=== PATIENT | female | born 1940 | race Caucasian/White ===

== ENCOUNTER 2016-10-24 14:02 | Outpatient (CLI) | payer MEDICARE, OTHER | END 2016-10-24 14:03 | disposition home or self-care (01) | DX: G47.33 Obstructive sleep apnea (adult) (pediatric) (principal); G47.23 Circadian rhythm sleep disorder, irregular sleep wake type; G47.09 Other insomnia | CPT/HCPCS: 99203; G0463 ==

== ENCOUNTER 2016-12-29 19:24 | Outpatient (CLI) | payer MEDICARE, OTHER ==
[2016-12-29 19:38] LABS: BASOPHILS # (AUTO) 0.1 10^3/uL (0.0-0.1); BASOPHILS % (AUTO) 0.8 %; EOSINOPHILS # (AUTO) 0.1 10^3/uL (0.0-0.7); EOSINOPHILS % (AUTO) 1.3 %; HCT - HEMATOCRIT 42.2 % (37.0-47.0); HGB - HEMOGLOBIN 14.5 g/dL (12.0-16.0); LYMPHOCYTES # (AUTO) 0.9 10^3/uL (1.5-3.5); LYMPHOCYTES % (AUTO) 10.8 %; MEAN CORPUSCULAR HEMOGLOBIN 32.7 pg (27.0-31.0); MEAN CORPUSCULAR HGB CONC 34.4 g/dL (32.0-36.0); MEAN CORPUSCULAR VOLUME 95.1 fL (81.0-99.0); MEAN PLATELET VOLUME 8.4 fL (7.9-10.8); MONOCYTES # (AUTO) 0.7 10^3/uL (0.0-1.0); MONOCYTES % (AUTO) 7.9 %; NEUTROPHILS # (AUTO) 6.6 10^3/uL (1.5-6.6); NEUTROPHILS % (AUTO) 79.2 %; RED BLOOD COUNT 4.44 10^6/uL (4.20-5.40); RED CELL DISTRIBUTION WIDTH 16.3 % (12.0-15.0); UNCORRECTED WHITE BLOOD COUNT 8.3 x10^3/uL; WHITE BLOOD COUNT 8.3 x10^3/uL (4.8-10.8)
[2016-12-29 19:52] LABS: ALBUMIN/GLOBULIN RATIO 1.2 (1.0-2.2); BILIRUBIN,TOTAL 0.8 mg/dL (0.2-1.0); CALCIUM 9.1 mg/dL (8.5-10.3); POTASSIUM 3.9 mmol/L (3.5-5.0); TOTAL PROTEIN 7.5 g/dL (6.7-8.2)
== END 2016-12-29 19:25 | disposition home or self-care (01) ==
LOC: LAB 19:24
PROVIDERS: ATTEND Physician Assistant
DX: R00.0 Tachycardia, unspecified (principal); R06.02 Shortness of breath; R58 Hemorrhage, not elsewhere classified
CPT/HCPCS: 36415; 80053; 85025

== ENCOUNTER 2017-01-03 12:49 | Outpatient (CLI) | payer MEDICARE, OTHER ==
--- NOTE | 2017-01-04 09:57 | XRAY Report ---
THREE VIEW LEFT SHOULDER: 01/03/2017 CLINICAL INDICATION: Pain. FINDINGS: Internal and external rotational views and a scapular Y view of the left shoulder demonstr ate osteoarthritic changes of the acromioclavicular joint. There is no evidence of acute fracture. No radiopaque foreign body is seen in the soft tissues. IMPRESSION: MILD OSTEOARTHRITIS. JOB #: [id number] EXT JOB #:[id number]
== END 2017-01-03 12:50 | disposition home or self-care (01) ==
LOC: DI.N 12:49
PROVIDERS: ATTEND Internal Medicine
DX: M19.012 Primary osteoarthritis, left shoulder (principal)

== ENCOUNTER 2017-03-21 12:44 | Outpatient (CLI) | payer MEDICARE, OTHER | END 2017-03-21 12:45 | disposition short-term general hospital (02) | LOC: EMS 12:44 | PROVIDERS: ATTEND Surgery | DX: R06.09 Other forms of dyspnea (principal) | CPT/HCPCS: A0425; A0429; A0888 ==

== ENCOUNTER 2017-06-20 02:58 | Outpatient (CLI) | payer MEDICARE, OTHER | END 2017-06-20 02:59 | disposition short-term general hospital (02) | LOC: EMS 02:58 | PROVIDERS: ATTEND Surgery | DX: R07.9 Chest pain, unspecified (principal); M54.9 Dorsalgia, unspecified | CPT/HCPCS: A0425; A0429; A0888 ==

== ENCOUNTER 2017-08-06 16:13 | Outpatient (CLI) | payer MEDICARE, OTHER | END 2017-08-06 16:14 | disposition critical access hospital (66) | LOC: EMS 16:13 | PROVIDERS: ATTEND Surgery | DX: R05 Cough (principal) | CPT/HCPCS: A0425; A0429 ==

== ENCOUNTER 2017-08-06 16:32 | Emergency (ER) | payer MEDICARE, OTHER ==
--- NOTE | 2017-08-06 17:06 | ED Physician Documentation ---
History of Present Illness - Stated complaint Stated Complaint: SOA - Chief complaint Chief Complaint: Resp - History obtained from History obtained from: Patient, Family, EMS - History of Present Illness Timing: How many days ago (several) Pain level max: 0 Pain level now: 0 Improved by: rest Worsened by: exertion, mainly is in her wheelchair since early may - Additonal information Additional information: Patient is a 77-year-old female who presents to the emergency department with a cough for the past week. No fevers. States that has been mildly productive. States people at home have been sick with the same. She also lives at [facility], an assisted living facility. Feels short of air and like her chest is tight. She has not been using her nebulizers or inhalers. Concerned that she may have pneumonia. Also has developed an ulcer on the left lower extremity that is turning red per the patient and family. They are concerned it may be infected. Review of Systems Ten Systems: 10 systems reviewed and negative Constitutional: denies: Fever, Chills Ears: denies: Ear pain Nose: reports: Rhinorrhea / runny nose, Congestion Throat: denies: Sore throat Cardiac: denies: Chest pain / pressure Respiratory: reports: Dyspnea, Wheezing (has used inhalers before) GI: denies: Abdominal Pain, Nausea, Vomiting, Diarrhea : denies: Dysuria Skin: denies: Rash Musculoskeletal: denies: Neck pain, Back pain Neurologic: denies: Headache PD PAST MEDICAL HISTORY - Past Medical History Past Medical History: Yes Cardiovascular: Congestive heart failure, Hypertension, Atrial fibrillation, Arrhythmia Respiratory: COPD, Pneumonia, Shortness of breath Neuro: CVA Endocrine/Autoimmune: None GI: GERD, Ulcers, Hemorrhoids : Incontinence, Nocturia, Frequency HEENT: Chronic vision loss Psych: None Musculoskeletal: Osteoarthritis, Fibromyalgia, Osteoporosis Derm: Other - Past Surgical History Past Surgical History: Yes General: Cholecystectomy, Gastric surgery /[employer]: Hysterectomy HEENT: Cataracts Derm: Other - Present Medications Home Medications: Ambulatory Orders Medication Instructions Recorded Confirmed Furosemide 40 tab PO DAILY 02/15/15 06/09/16 Loratadine 10 mg PO DAILY 02/15/15 06/09/16 Losartan Potassium 25 mg PO DAILY 02/15/15 06/09/16 Potassium Chloride 8 meq PO DAILY 02/15/15 06/08/16 Warfarin Sodium 2 mg PO DAILY 02/15/15 06/09/16 raNITIdine HCl [Ranitidine HCl] 150 mg PO DAILY 02/15/15 06/08/16 Acetaminophen 325 mg PO Q6H PRN 06/08/16 06/09/16 Calcium Carbonate [Calcium] 500 mg PO TID 06/08/16 06/08/16 Famotidine [Pepcid] 20 mg PO DAILY 30 Days tablet 06/09/16 Hydrocodone/Acetaminophen 1 tab PO Q4H PRN 06/09/16 06/09/16 [Hydrocodon-Acetaminophn 10-325] Metoprolol Tartrate [Lopressor] 25 mg PO BID 06/09/16 06/09/16 Multivitamin [Multiple Vitamins] 1 each PO DAILY 06/09/16 06/09/16 Nitrofurantoin [Macrobid] 100 mg PO DAILY #5 capsule 06/09/16 Nystatin Cream [Mycostatin Cream] 1 applic TOP DAILY PRN 06/09/16 06/09/16 Polyethylene Glycol 3350 [Miralax] 17 gm PO DAILY PRN 06/09/16 06/09/16 Senna [Senokot] 17.2 mg PO BID 06/09/16 06/09/16 diltiaZEM CD [Cardizem Cd] 240 mg PO DAILY 06/09/16 06/09/16 Albuterol Sulf [Ventolin Hfa 2 puffs INH Q4HR PRN #1 inhaler 08/06/17 Inhaler] Benzonatate [Tessalon Perle] 100 - 200 mg PO TID PRN #30 capsule 08/06/17 Cephalexin [Keflex] 500 mg PO Q6H #40 capsule 08/06/17 Doxycycline Hyclate 100 mg PO BID #20 capsule 08/06/17 predniSONE [Prednisone] 40 mg PO DAILY #10 tablet 08/06/17 - Allergies Allergies/Adverse Reactions: Allergies Allergy/AdvReac Type Severity Reaction Status Date / Time Latex, Natural Rubber Allergy Unknown Verified 02/15/15 15:23 mupirocin Allergy Rash Verified 06/08/16 13:35 silver Allergy Rash Verified 06/08/16 13:35 methotrexate AdvReac Headache Verified 02/15/15 15:23 - Social History Does the pt smoke?: No Smoking Status: Never smoker Does the pt drink ETOH?: No Does the pt have substance abuse?: No - Immunizations Immunizations are current?: Yes - POLST Patient has POLST: No PD ED PE NORMAL - Vitals Vital signs reviewed: Yes - General General: Alert and oriented X 3, No acute distress - HEENT HEENT: Moist mucous membranes - Neck Neck: Supple, no meningeal sign - Cardiac Cardiac: RRR - Respiratory Respiratory: No respiratory distress, Other (wheezing B) - Abdomen Abdomen: Soft, Non tender - Derm Derm: Warm and dry - Extremities Extremities: Other (L leg - 2x2cm, wound to the lateral ankle, mild surrounding cellulitis.) - Neuro Neuro: Alert and oriented X 3 - Psych Psych: Normal mood, Normal affect Results - Vitals Vitals: Vital Signs - 24 hr 08/06/17 08/06/17 08/06/17 16:38 17:43 19:14 Temperature 36.7 C Heart Rate 99 85 90 Respiratory 21 16 18 Rate Blood Pressure 125/71 124/67 O2 Saturation 98 96 08/06/17 08/06/17 08/06/17 19:16 19:32 20:11 Temperature Heart Rate 86 93 Respiratory 19 17 18 Rate Blood Pressure 124/67 O2 Saturation 99 97 08/06/17 08/06/17 08/06/17 20:24 20:31 20:45 Temperature 36.4 C L Heart Rate 92 83 87 Respiratory 20 17 18 Rate Blood Pressure 134/61 H O2 Saturation 99 97 Oxygen O2 Source Nasal cannula - EKG (time done) 1654 Rate: Rate (enter#) (95) Rhythm: Atrial fibrillation [place]: Normal Intervals: Normal [place] QRS: Normal Ischemia: T wave inversion (v2-3) - Labs Labs: Laboratory Tests 08/06/17 08/06/17 08/06/17 17:04 17:04 17:04 WBC 5.0 RBC 3.81 L Hgb 12.4 Hct 37.4 MCV 98.1 MCH 32.6 H MCHC 33.2 RDW 15.5 H Plt Count 184 MPV 8.7 Neut # 3.2 Lymph # 0.8 L Glascock # 0.7 Eos # 0.3 Baso # 0.0 Absolute Nucleated RBC 0.00 Nucleated RBC % 0.0 PT INR Sodium 139 Potassium 3.5 Chloride 98 L Carbon Dioxide 27 Anion Gap 14.0 H BUN 38 H Creatinine 1.0 Estimated GFR (MDRD) 53 L Glucose 104 H Calcium 8.4 L Total Bilirubin 0.6 AST 35 ALT 20 Alkaline Phosphatase 106 B-Natriuretic Peptide 219 H Total Protein 6.9 Albumin 3.4 Globulin 3.5 Albumin/Globulin Ratio 1.0 Lipase 21 L 08/06/17 17:04 WBC RBC Hgb Hct MCV MCH MCHC RDW Plt Count MPV Neut # Lymph # Glascock # Eos # Baso # Absolute Nucleated RBC Nucleated RBC % PT 26.9 H INR 2.5 H Sodium Potassium Chloride Carbon Dioxide Anion Gap BUN Creatinine Estimated GFR (MDRD) Glucose Calcium Total Bilirubin AST ALT Alkaline Phosphatase B-Natriuretic Peptide Total Protein Albumin Globulin Albumin/Globulin Ratio Lipase - Rads (name of study) cxr Radiology: Prelim report reviewed, EMP read contemporaneously, See rad report ( Stable cardiac enlargement. 2. Fullness in both xin similar to the previous study. Findings could represent pulmonary hypertension. Correlate clinically. 3. Possible subtle densities in the right lower lobe could represent developing infiltrates. No large effusions or pneumothorax. ) PD MEDICAL DECISION MAKING - ED course Complexity details: reviewed results, re-evaluated patient, considered differential, d/w patient, d/w family ED course: Patient is a 77-year-old female who presents to the emergency department with what appears to be a viral upper respiratory infection. She feels better after nebulizer treatment and steroids. Will place her on antibiotics for the cellulitis on the left lower extremity. No hypoxia. No respiratory distress. She is on oxygen usually at home. No evidence of sepsis. We will have her follow-up closely with her primary care provider. Patient and family are unaware if she has pulmonary hypertension or not, this may be worthwhile looking into as it may improve her function at home. Would recommend follow-up with her PCP for this. Patient and family counseled regarding signs and symptoms for which I believe and urgent re-evaluation would be necessary. Patient with good understanding of and agreement to plan and is comfortable going home at this time This document was made in part using voice recognition software. While efforts are made to proofread this document, sound alike and grammatical errors may occur. Departure - Departure Disposition: 01 Home, Self Care Clinical Impression: Cellulitis, Wheezing URI (upper respiratory infection) Qualifiers: URI type: unspecified viral URI Qualified Code(s): J06.9 - Acute upper respiratory infection, unspecified Condition: Good Instructions: ED Infec Skin Cellulitis, ED Viral Syndrome Follow-Up: Mazin Lopez MD [Primary Care Provider] - Within 3 Days Prescriptions: Albuterol Sulf [Ventolin Hfa Inhaler] 2 puffs INH Q4HR PRN #1 inhaler PRN Reason: Wheezing Benzonatate [Tessalon Perle] 100 - 200 mg PO TID PRN #30 capsule PRN Reason: Cough Cephalexin [Keflex] 500 mg PO Q6H #40 capsule Doxycycline Hyclate 100 mg PO BID #20 capsule predniSONE [Prednisone] 40 mg PO DAILY #10 tablet Comments: Return if you worsen. You need to follow up closely with Dr. Lopez for a referral to wound care at the [facility] [place]. Discharge Date/Time: 08/06/17 20:45
[2017-08-06 17:10] LABS: BASOPHILS % (AUTO) 0.7 %; EOSINOPHILS # (AUTO) 0.3 10^3/uL (0.0-0.7); EOSINOPHILS % (AUTO) 5.1 %; HGB - HEMOGLOBIN 12.4 g/dL (12.0-16.0); LYMPHOCYTES # (AUTO) 0.8 10^3/uL (1.5-3.5); LYMPHOCYTES % (AUTO) 15.6 %; MEAN CORPUSCULAR HEMOGLOBIN 32.6 pg (27.0-31.0); MEAN CORPUSCULAR HGB CONC 33.2 g/dL (32.0-36.0); MEAN CORPUSCULAR VOLUME 98.1 fL (81.0-99.0); MEAN PLATELET VOLUME 8.7 fL (7.9-10.8); MONOCYTES # (AUTO) 0.7 10^3/uL (0.0-1.0); MONOCYTES % (AUTO) 14.6 %; NEUTROPHILS # (AUTO) 3.2 10^3/uL (1.5-6.6); PLT - PLATELET COUNT 184 10^3/uL (130-450); RED BLOOD COUNT 3.81 10^6/uL (4.20-5.40); RED CELL DISTRIBUTION WIDTH 15.5 % (12.0-15.0)
[2017-08-06] MEDS ORDERED: IPRATROPIUM/ALBUTEROL 3 ML NEB INH STA (17:23)
[2017-08-06] MEDS ORDERED: predniSONE 20 MG TABLET PO STA (17:23)
[2017-08-06 17:26] LABS: ALBUMIN 3.4 g/dL (3.2-5.5); BILIRUBIN,TOTAL 0.6 mg/dL (0.2-1.0); CALCIUM 8.4 mg/dL (8.5-10.3); TOTAL PROTEIN 6.9 g/dL (6.7-8.2)
--- NOTE | 2017-08-06 18:03 | XRAY Preliminary Report ---
Exam: XR CHEST 1 VIEW X-RAY IMPRESSION: 1. Stable cardiac enlargement. 2. Fullness in both xin similar to previous study. Findings could represent pulmonary hypertension. Correlate clinically. 3. Possible subtle densities in the right lower lobe could represent developing infiltrates. No large effusions or pneumothorax. [facility] SITE ID: [id number]
--- NOTE | 2017-08-06 18:36 | XRAY Report ---
EXAM: CHEST RADIOGRAPHY EXAM DATE: 08/06/2017 05:30 PM. CLINICAL HISTORY: Dyspnea, cough. COMPARISON: 06/09/2016. TECHNIQUE: 1 view. FINDINGS: Lungs/Pleura: Both xin are prominent. No large effusions or pneumothorax. Possible patchy interstiti al or groundglass opacities in the right lower lobe. Mediastinum: Stable cardiac enlargement. EKG leads overlie the chest. Other: None. IMPRESSION: 1. Stable cardiac enlargement. 2. Fullness in both xin similar to the previous study. Findings could represent pulmonary hypertensi on. Correlate clinically. 3. Possible subtle densities in the right lower lobe could represent developing infiltrates. No large effusions or pneumothorax. [facility] Referring Provider Line: [phone] SITE ID: [id number]
[2017-08-06] MEDS ORDERED: SODIUM CHLORIDE 0.9% 500 ML IV ONE (19:49)
[2017-08-06] MEDS ORDERED: cephALEXin 250 MG CAPSULE PO STA (19:49)
[2017-08-06] MEDS ORDERED: ALBUTEROL NEB 2.5 MG/3 ML INH STA (19:49)
[2017-08-06] MEDS ORDERED: DOXYCYCLINE 100 MG TABLET PO STA (19:51)
[2017-08-06 20:06] LABS: INR 2.5 (0.8-1.2); PT - PROTHROMBIN TIME 26.9 secs (9.9-12.6)
[2017-08-06 20:32] VITALS: BP 134/61
== END 2017-08-06 20:45 | disposition home or self-care (01) ==
LOC: EDUNIT# → ED 16:32
DX: J06.9 Acute upper respiratory infection, unspecified (principal); B97.89 Other viral agents as the cause of diseases classified elsewhere; L03.116 Cellulitis of left lower limb; L97.329 Non-pressure chronic ulcer of left ankle with unspecified severity; I48.91 Unspecified atrial fibrillation; Z79.01 Long term (current) use of anticoagulants; I11.0 Hypertensive heart disease with heart failure; I50.9 Heart failure, unspecified; J44.9 Chronic obstructive pulmonary disease, unspecified
CPT/HCPCS: 36415; 71045; 80053; 83690; 83880; 85025; 85610; 94640; 99283; 99284; A9270; J7512; J7613; J7620; 93005

== ENCOUNTER 2017-08-09 07:11 | Outpatient (CLI) | payer MEDICARE, OTHER | END 2017-08-09 07:12 | disposition short-term general hospital (02) | LOC: EMS 07:11 | PROVIDERS: ATTEND Surgery | DX: R06.02 Shortness of breath (principal) | CPT/HCPCS: A0425; A0427; A0888 ==

== ENCOUNTER 2019-08-10 14:50 | Outpatient (CLI) | payer MEDICARE, OTHER | END 2019-08-10 14:51 | disposition short-term general hospital (02) | LOC: EMS 14:50 | PROVIDERS: ATTEND Surgery | DX: R07.89 Other chest pain (principal); R06.02 Shortness of breath | CPT/HCPCS: A0425; A0427; A0888 ==

== ENCOUNTER 2020-03-06 08:00 | Outpatient (CLI) | payer MEDICARE, OTHER ==
[2020-03-06 12:37] LABS: BASOPHILS % (AUTO) 0.7 %; EOSINOPHILS # (AUTO) 0.3 10^3/uL (0.0-0.7); EOSINOPHILS % (AUTO) 4.5 %; HGB - HEMOGLOBIN 8.5 g/dL (12.0-16.0); LYMPHOCYTES # (AUTO) 1.2 10^3/uL (1.5-3.5); LYMPHOCYTES % (AUTO) 19.3 %; MEAN CORPUSCULAR HGB CONC 30.9 g/dL (32.0-36.0); MEAN CORPUSCULAR VOLUME 103.4 fL (81.0-99.0); MEAN PLATELET VOLUME 11.9 fL (7.9-10.8); MONOCYTES # (AUTO) 0.5 10^3/uL (0.0-1.0); MONOCYTES % (AUTO) 8.4 %; NEUTROPHILS % (AUTO) 66.8 %; PLT - PLATELET COUNT 271 10^3/uL (130-450); RED BLOOD COUNT 2.66 10^6/uL (4.20-5.40); RED CELL DISTRIBUTION WIDTH 18.9 % (12.0-15.0); WHITE BLOOD COUNT 6.1 x10^3/uL (4.8-10.8)
[2020-03-06 12:43] LABS: CREATININE 1.3 mg/dL (0.4-1.0)
== END 2020-03-06 23:59 | disposition home or self-care (01) ==
LOC: LAB.R 08:00
DX: E11.9 Type 2 diabetes mellitus without complications (principal); D64.9 Anemia, unspecified
CPT/HCPCS: 80048; 85025

== ENCOUNTER 2020-03-22 08:00 | Outpatient (CLI) | payer MEDICARE, OTHER ==
[2020-03-22 21:47] LABS: BASOPHILS % (AUTO) 0.5 %; EOSINOPHILS # (AUTO) 0.2 10^3/uL (0.0-0.7); HGB - HEMOGLOBIN 9.3 g/dL (12.0-16.0); LYMPHOCYTES # (AUTO) 1.2 10^3/uL (1.5-3.5); LYMPHOCYTES % (AUTO) 15.3 %; MEAN CORPUSCULAR HGB CONC 30.8 g/dL (32.0-36.0); MEAN CORPUSCULAR VOLUME 103.8 fL (81.0-99.0); MEAN PLATELET VOLUME 11.5 fL (7.9-10.8); MONOCYTES # (AUTO) 0.6 10^3/uL (0.0-1.0); MONOCYTES % (AUTO) 8.2 %; NEUTROPHILS # (AUTO) 5.6 10^3/uL (1.5-6.6); NEUTROPHILS % (AUTO) 73.6 %; PLT - PLATELET COUNT 184 10^3/uL (130-450); RED BLOOD COUNT 2.91 10^6/uL (4.20-5.40); RED CELL DISTRIBUTION WIDTH 19.4 % (12.0-15.0); WHITE BLOOD COUNT 7.5 x10^3/uL (4.8-10.8)
[2020-03-22 21:56] LABS: CALCIUM 8.3 mg/dL (8.5-10.3); CREATININE 0.7 mg/dL (0.4-1.0)
== END 2020-03-22 23:59 | disposition home or self-care (01) ==
LOC: LAB.R 08:00
DX: D64.9 Anemia, unspecified (principal); J44.9 Chronic obstructive pulmonary disease, unspecified; I50.32 Chronic diastolic (congestive) heart failure; I48.20 Chronic atrial fibrillation, unspecified
CPT/HCPCS: 80048; 85025

== ENCOUNTER 2020-04-09 18:58 | Outpatient (CLI) | payer MEDICARE, OTHER ==
[2020-04-09 21:59] LABS: BILIRUBIN,URINE NEGATIVE (NEGATIVE); GLUCOSE, URINE (UA) NEGATIVE (NEGATIVE); KETONES,URINE (UA) NEGATIVE (NEGATIVE); LEUKOCYTE ESTERASE, URINE LARGE (NEGATIVE); NITRITE,URINE POSITIVE (NEGATIVE); OCCULT BLOOD,URINE TRACE-INTA (NEGATIVE); PH,URINE >=9.0 PH (5.0-7.5); PROTEIN,URINE 100 mg/dL (NEGATIVE); UROBILINOGEN,URINE 0.2 (NORMAL) E.U./dL (NORMAL)
[2020-04-09 22:07] LABS: BACTERIA,URINE Moderate /HPF (None Seen); CLARITY,URINE TURBID (CLEAR); RBC,URINE 0-5 /HPF (0-5); SQUAMOUS EPITHELIAL CELL,UR NONE SEEN (<= Few)
== END 2020-04-09 23:59 | disposition home or self-care (01) ==
LOC: LAB.R 18:58
DX: N39.0 Urinary tract infection, site not specified (principal)
CPT/HCPCS: 81001; 87077; 87086; 87181

== ENCOUNTER 2020-04-18 08:00 | Outpatient (CLI) | payer MEDICARE, OTHER ==
[2020-04-18 20:03] LABS: BASOPHILS # (AUTO) 0.1 10^3/uL (0.0-0.1); BASOPHILS % (AUTO) 0.9 %; EOSINOPHILS # (AUTO) 0.1 10^3/uL (0.0-0.7); EOSINOPHILS % (AUTO) 2.4 %; HGB - HEMOGLOBIN 10.5 g/dL (12.0-16.0); LYMPHOCYTES # (AUTO) 1.2 10^3/uL (1.5-3.5); LYMPHOCYTES % (AUTO) 21.5 %; MEAN CORPUSCULAR HEMOGLOBIN 31.3 pg (27.0-31.0); MEAN CORPUSCULAR HGB CONC 30.5 g/dL (32.0-36.0); MEAN CORPUSCULAR VOLUME 102.7 fL (81.0-99.0); MEAN PLATELET VOLUME 10.8 fL (7.9-10.8); MONOCYTES # (AUTO) 0.6 10^3/uL (0.0-1.0); MONOCYTES % (AUTO) 10.6 %; NEUTROPHILS # (AUTO) 3.5 10^3/uL (1.5-6.6); NEUTROPHILS % (AUTO) 64.2 %; PLT - PLATELET COUNT 209 10^3/uL (130-450); RED BLOOD COUNT 3.35 10^6/uL (4.20-5.40); RED CELL DISTRIBUTION WIDTH 19.2 % (12.0-15.0); WHITE BLOOD COUNT 5.4 x10^3/uL (4.8-10.8)
[2020-04-18 20:07] LABS: CALCIUM 8.1 mg/dL (8.5-10.3); CREATININE 0.7 mg/dL (0.4-1.0)
== END 2020-04-18 23:59 | disposition home or self-care (01) ==
LOC: LAB.R 08:00
PROVIDERS: ATTEND Family Medicine
DX: I50.9 Heart failure, unspecified (principal); D64.9 Anemia, unspecified
CPT/HCPCS: 80048; 85025

== ENCOUNTER 2020-05-03 08:00 | Outpatient (CLI) | payer MEDICARE, OTHER ==
[2020-05-03 13:13] LABS: BASOPHILS # (AUTO) 0.1 10^3/uL (0.0-0.1); BASOPHILS % (AUTO) 0.8 %; EOSINOPHILS # (AUTO) 0.2 10^3/uL (0.0-0.7); EOSINOPHILS % (AUTO) 2.9 %; HGB - HEMOGLOBIN 9.8 g/dL (12.0-16.0); LYMPHOCYTES # (AUTO) 1.3 10^3/uL (1.5-3.5); LYMPHOCYTES % (AUTO) 22.4 %; MEAN CORPUSCULAR HEMOGLOBIN 31.8 pg (27.0-31.0); MEAN CORPUSCULAR HGB CONC 30.9 g/dL (32.0-36.0); MEAN CORPUSCULAR VOLUME 102.9 fL (81.0-99.0); MEAN PLATELET VOLUME 11.2 fL (7.9-10.8); MONOCYTES # (AUTO) 0.6 10^3/uL (0.0-1.0); MONOCYTES % (AUTO) 10.1 %; NEUTROPHILS # (AUTO) 3.8 10^3/uL (1.5-6.6); NEUTROPHILS % (AUTO) 63.5 %; PLT - PLATELET COUNT 255 10^3/uL (130-450); RED BLOOD COUNT 3.08 10^6/uL (4.20-5.40); RED CELL DISTRIBUTION WIDTH 19.6 % (12.0-15.0)
[2020-05-03 13:19] LABS: CALCIUM 8.8 mg/dL (8.5-10.3); CREATININE 0.8 mg/dL (0.4-1.0)
== END 2020-05-03 23:59 | disposition home or self-care (01) ==
LOC: LAB.R 08:00
PROVIDERS: ATTEND Family Medicine
DX: D64.9 Anemia, unspecified (principal); I48.91 Unspecified atrial fibrillation
CPT/HCPCS: 80048; 85025

== ENCOUNTER 2020-05-06 15:21 | Outpatient (CLI) | payer MEDICARE, OTHER ==
--- NOTE | 2020-05-06 19:50 | CT Report ---
PROCEDURE: LOWER EXTREMITY WO - LT INDICATIONS: LEFT FOOT PAIN, BRUISING X4 DAYS TECHNIQUE: Noncontrast 1 mm axial sections acquired of the left foot and ankle, with coronal and sagittal reform ats. COMPARISON: X-ray studies 04/02/2020. FINDINGS: Image quality: Excellent. Bones: There is marked osteopenia limiting evaluation. There is a nondisplaced fracture in the poste rior calcaneus with sclerosis along the margins compatible with a subacute fracture. There is periost eal thickening along the visualized distal fibula compatible with sequelae of an old fracture. Soft tissues: There is concentric subcutaneous edema and skin thickening within the visualized lower leg extending along the dorsal aspect of the foot and ankle. There is severe fatty atrophy of the vi sualized musculature. Visualized flexor, extensor, peroneal, and Achilles tendons appear grossly inta ct. No tibiotalar joint effusion. IMPRESSION: 1. Healing subacute nondisplaced fracture of the calcaneus. 2. Marked osteopenia limiting evaluation. 3. Nonspecific subcutaneous changes edema and skin thickening Individual is lower leg and within the dorsal aspect of the foot. 4. Severe fatty atrophy of the visualized musculature. Reviewed by: Luke Mauricio MD on 05/06/2020 6:49 PM ZEKE Approved by: Luke Mauricio MD on 05/06/2020 6:49 PM ZEKE Station ID: [id number]
== END 2020-05-06 15:22 | disposition home or self-care (01) ==
LOC: DI 15:21
PROVIDERS: ATTEND Nurse Practitioner
DX: S90.32XA Contusion of left foot, initial encounter (principal); S92.002A Unspecified fracture of left calcaneus, initial encounter for closed fracture; M85.872 Other specified disorders of bone density and structure, left ankle and foot

== ENCOUNTER 2020-05-25 10:40 | Outpatient (CLI) | payer MEDICARE, OTHER ==
--- NOTE | 2020-05-25 12:12 | SLEEP CARE CONSULTATION ---
Information from patient questionnaire entered by Mallory Solano. I have reviewed and concur with the information entered by Mallory Solano. This document represents the service I personally performed and the decisions made by me, Shameka Melton MD, [facility]. History of Present Illness Service Date and Time: 05/25/2020 1040 Reason for Visit: [facility] Chief Complaint: reports: Insomnia, Unrefreshed sleep, Excessive daytime sleepiness Date of Onset: 2004 Usual bedtime: Whenever I can Time it takes to fall asleep: 2-4 hours Snores at night: No Observed to quit breathing while asleep: No (years ago has) Number of times waking at night: sleep 2-3 hours at a time Reasons for waking at night: reports: Other (unknown) Toss, Turn, or Twitch while sleeping: No Recalls having dreams: No Usually gets out of bed at: N/A mostly bed bound Feels refreshed in the morning: No Morning headache: No Sleepy or fatigued during the day: Yes Ever fallen asleep while driving: Yes Takes day naps: Yes Dreams during day naps: No Prior sleep studies: Yes Year and Where: 2004 Type of Sleep Study: Polysomnography Additional HPI information: To minimize the risk of COVID-19 exposure, the patient has requested and consented to this telemedicine visit. The patient also agrees to having her insurance billed. Mrs. Hernandez is an 80 year old lady who was first diagnosed with the condition in 2004 in [place] after a stroke. She used a CPAP for about 10 years. She quit shortly after she acquired her third machine. She said her put powder on it, so much that it clogged up the device. She felt less sleepy during the day when she used the machine. She wore a full face mask. She believes she has BiPAP but the pressure is set too high. She was scheduled to have a sleep study 3 years ago but never came in. Her BiPAP was returned to the durable medical supplier. 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 Patient is and lives in [place]. Have you smoked in the past 12 months: No Alcohol use: No Caffeine use: Yes Caffeine amount and frequency: rarely Family History Family history of sleep disordered breathing: No Allergies and Home Medications Drug allergies reviewed: Yes Home medication list reviewed: Yes Review of Systems Cardiovascular: reports: chest pain, have to sleep sitting up Respiratory: reports: shortness of breath Gastrointestinal: reports: difficulty swallowing Urinary: reports: incontinence Neurological: reports: headaches Psychiatric: reports: anxiety Ear/Nose/Throat: reports: nasal congestion, sinus problems, dry mouth/throat Endocrine: reports: sluggishness Musculoskeletal: reports: muscle pain or cramping, mobility problems Immunologic: denies: sneezing, rash, itching, allergies to food or environment, other Physical Exam Height: 5 ft Impression and Plan IMPRESSION: 1. Obstructive Sleep Apnea-Hypopnea Syndrome, as previously diagnosed but presently not treated. The severity is unknown as we do not have the records of her sleep studies. She appears to be symptomatic for loud and irregular snoring, frequent awakenings during the night, unrefreshed sleep, cognitive impairment, and daytime hypersomnolence. Narrow oropharynx and obesity are common predisposing factors for obstructive sleep apnea-hypopnea syndrome. To restart the positive airway pressure therapy, we will need to have another sleep study. Because she is halfway bound, a home sleep apnea test (HSAT) will be ordered. 2. 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 This type of sleep disorder is very common in assisted living situation due to the inactivity during the day. Without instituting regular daytime activities, the patient will fall asleep off and on throughout the day and not sleep at night. I reassured her that she is getting enough sleep and should not worry that she does not sleep at night. The home sleep apnea test (HSAT) may have to be performed during the day. Plan: 1. Schedule a home sleep apnea test (HSAT) to be performed at the halfway. 2. Try to lose weight. 4. Return for follow up after the test. Visit Type: Telehealth Phone Video Type: Doximity Patient Location: Care Facility Location of Provider: Home Patient agrees and consents to this telehealth visit type: Yes Patient agrees to have their insurance billed: Yes Time Spent with Patient (minutes): 10 Provider Statement: I spent 100% of the Telehealth Phone Call with the patient with greater than 50% spent counseling the patient and coordination of care.
== END 2020-05-25 10:41 | disposition home or self-care (01) ==
LOC: SC 10:40
PROVIDERS: ATTEND Internal Medicine Pulmonary Disease
DX: G47.33 Obstructive sleep apnea (adult) (pediatric) (principal); G47.00 Insomnia, unspecified; G47.23 Circadian rhythm sleep disorder, irregular sleep wake type

== ENCOUNTER 2020-06-03 17:10 | Outpatient (CLI) | payer MEDICARE, OTHER, MEDICAID ==
[2020-06-03 19:55] LABS: BASOPHILS % (AUTO) 0.5 %; EOSINOPHILS # (AUTO) 0.1 10^3/uL (0.0-0.7); EOSINOPHILS % (AUTO) 1.4 %; HGB - HEMOGLOBIN 10.2 g/dL (12.0-16.0); LYMPHOCYTES # (AUTO) 1.3 10^3/uL (1.5-3.5); MEAN CORPUSCULAR HEMOGLOBIN 30.8 pg (27.0-31.0); MEAN CORPUSCULAR HGB CONC 30.6 g/dL (32.0-36.0); MEAN CORPUSCULAR VOLUME 100.6 fL (81.0-99.0); MEAN PLATELET VOLUME 11.3 fL (7.9-10.8); MONOCYTES # (AUTO) 0.8 10^3/uL (0.0-1.0); MONOCYTES % (AUTO) 9.7 %; NEUTROPHILS # (AUTO) 5.9 10^3/uL (1.5-6.6); PLT - PLATELET COUNT 306 10^3/uL (130-450); RED BLOOD COUNT 3.31 10^6/uL (4.20-5.40); RED CELL DISTRIBUTION WIDTH 18.6 % (12.0-15.0); WHITE BLOOD COUNT 8.1 x10^3/uL (4.8-10.8)
[2020-06-03 20:01] LABS: ALBUMIN 2.6 g/dL (3.2-5.5); ALBUMIN/GLOBULIN RATIO 0.6 (1.0-2.2); CALCIUM 8.6 mg/dL (8.5-10.3); CREATININE 0.9 mg/dL (0.4-1.0); TOTAL PROTEIN 7.1 g/dL (6.7-8.2)
== END 2020-06-03 23:59 | disposition home or self-care (01) ==
LOC: LAB.R 17:10
DX: I48.91 Unspecified atrial fibrillation (principal)
CPT/HCPCS: 80053; 82728; 85025

== ENCOUNTER 2020-06-29 11:15 | Outpatient (CLI) | payer MEDICARE, OTHER, MEDICAID ==
[2020-06-29 21:14] LABS: CALCIUM 8.6 mg/dL (8.5-10.3); CREATININE 0.8 mg/dL (0.4-1.0)
== END 2020-06-29 23:59 | disposition home or self-care (01) ==
LOC: LAB.R 11:15
DX: R60.9 Edema, unspecified (principal)
CPT/HCPCS: 80048

== ENCOUNTER 2020-07-22 15:45 | Outpatient (CLI) | payer MEDICARE, OTHER, MEDICAID | END 2020-07-22 15:46 | disposition critical access hospital (66) | LOC: EMS 15:45 | PROVIDERS: ATTEND Surgery | DX: Z76.89 Persons encountering health services in other specified circumstances (principal) | CPT/HCPCS: A0425; A0429 ==

== ENCOUNTER 2020-07-22 15:54 | Inpatient (IN) | payer MEDICARE, OTHER, MEDICAID ==
[2020-07-22 16:25] LABS: VBG PH 7.421 (7.31-7.41)
[2020-07-22 16:26] LABS: VBG BASE EXCESS 11.6 mmol/L (-2 - +2); VBG PCO2 59.8 mmHg (41-51); VBG TOTAL CO2 39.8 mmol/L (24-29)
[2020-07-22 16:29] LABS: BASOPHILS % (AUTO) 0.5 %; EOSINOPHILS % (AUTO) 0.4 %; HGB - HEMOGLOBIN 9.6 g/dL (12.0-16.0); LYMPHOCYTES # (AUTO) 0.8 10^3/uL (1.5-3.5); LYMPHOCYTES % (AUTO) 14.7 %; MEAN CORPUSCULAR HEMOGLOBIN 31.6 pg (27.0-31.0); MEAN CORPUSCULAR HGB CONC 31.2 g/dL (32.0-36.0); MEAN CORPUSCULAR VOLUME 101.3 fL (81.0-99.0); MONOCYTES # (AUTO) 0.7 10^3/uL (0.0-1.0); MONOCYTES % (AUTO) 12.4 %; NEUTROPHILS % (AUTO) 71.3 %; PLT - PLATELET COUNT 211 10^3/uL (130-450); RED BLOOD COUNT 3.04 10^6/uL (4.20-5.40); RED CELL DISTRIBUTION WIDTH 20.8 % (12.0-15.0); WHITE BLOOD COUNT 5.7 x10^3/uL (4.8-10.8)
[2020-07-22 16:43] LABS: ALBUMIN 2.1 g/dL (3.2-5.5); ALBUMIN/GLOBULIN RATIO 0.5 (1.0-2.2); CRP - C-REACTIVE PROTEIN 3.7 mg/dL (0-1.0); TOTAL PROTEIN 6.1 g/dL (6.7-8.2)
[2020-07-22] MEDS ORDERED: DEXAMETHASONE 10 MG/ML VIAL IVP STA (16:44)
[2020-07-22 16:51] LABS: INR 1.4 (0.8-1.2); PT - PROTHROMBIN TIME 15.6 secs (9.9-12.6)
--- NOTE | 2020-07-22 16:55 | XRAY Report ---
PROCEDURE: Chest 1 View X-Ray INDICATIONS: Chest Pain TECHNIQUE: One view of the chest was acquired. COMPARISON: 08/06/2017 FINDINGS: Surgical changes and devices: None. Lungs and pleura: No pneumothorax. Multifocal bilateral infiltrates and mild interstitial thickening .. Mediastinum: The central vasculature is indistinct.. Heart size is markedly enlarged, chronic. Bones and chest wall: No suspicious bony lesions. Overlying soft tissues appear unremarkable. IMPRESSION: 1. Bilateral mixed interstitial and alveolar infiltrates suggesting pulmonary edema or possibly infec tious pneumonia. Correlate clinically. 2. Chronic, marked cardiac megaly and central vascular congestion suggesting CHF. Reviewed by: Natalya Cool MD on 07/22/2020 4:53 PM PST Approved by: Natalya Cool MD on 07/22/2020 4:53 PM PST Station ID: [id number]
[2020-07-22 16:58] LABS: PARTIAL THROMBOPLASTIN TIME 31.3 secs (24.9-33.3)
[2020-07-22] MEDS ORDERED: REMDESIVIR 200 MG in SODIUM CHLORIDE 0.9% 250 ML IV ONE (17:00)
[2020-07-22 17:08] LABS: D-DIMER 427.4 ng/mL (200.0-255.0)
--- NOTE | 2020-07-22 17:14 | ED Physician Documentation ---
PD HPI CHEST PAIN - Stated complaint Stated Complaint: C+ MEDS - Chief complaint Chief Complaint: Resp - History obtained from History obtained from: Patient, Family, Other (primary doctor - Dr. Solano) - Additional information Additional information: 80-year-old woman with past medical history of COPD CHF pulmonary hypertension on 2 L home oxygen, DNR/DNI, morbid obesity presents from [facility] (on 2 L home O2) with Covid positivity as of 8 days ago. Patient has been requiring increased O2 to 5 L today and was mildly tachycardic overnight. She has not been complaining of shortness of breath cough diarrhea. She does have body aches and severe weakness. Her wishes are to be admitted for remdesivir but she does not want extraordinary measures per her daughter. Denies chest pain, nausea, abdominal pain or pleurisy. She does have severe diffuse edema, minimal ambulation at baseline, decubitus ulcer and bilateral lower extremity ulcers. mild dyspnea. Review of Systems Ten Systems: 10 systems reviewed and negative Constitutional: reports: Myalgias, Fatigue. denies: Fever, Chills Cardiac: denies: Chest pain / pressure Respiratory: reports: Dyspnea. 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 HEENT: Cataracts Derm: Other - Present Medications Home Medications: Ambulatory Orders Medication Instructions Recorded Confirmed Calcium Carbonate [Calcium] 1,000 mg PO Q2H PRN 06/08/16 07/23/20 Hydrocodone/Acetaminophen 1 tab PO Q6H PRN 06/09/16 07/23/20 [Hydrocodon-Acetaminophn 10-325] Multivitamin [Multiple Vitamins] 1 each PO DAILY 06/09/16 07/23/20 Senna [Senokot] 8.6 mg PO DAILY PRN 06/09/16 07/23/20 polyethylene glycoL 3350 [Miralax] 17 gm PO DAILY 06/09/16 07/23/20 Gabapentin [Neurontin] 200 mg PO TID 07/22/20 07/23/20 Metoprolol Succinate [Toprol Xl] 25 mg PO BID 07/22/20 07/23/20 Potassium Chloride [K-Dur] 20 meq PO BIDWM 07/22/20 07/23/20 Torsemide 80 mg PO DAILY 07/22/20 07/23/20 allopurinoL [Zyloprim] 100 mg PO DAILY 07/22/20 07/23/20 Ascorbic Acid 500 mg PO DAILY 07/23/20 07/23/20 Bisacodyl Supp [Dulcolax Supp] 10 mg LA Q24H PRN 07/23/20 07/23/20 Diclofenac Sodium [Voltaren 2 gm TP Q6H PRN 07/23/20 07/23/20 Arthritis Pain] Ipratropium/Albuterol [Combivent 1 puffs IH Q6H PRN 07/23/20 07/23/20 Respimat] Lactobacillus Rhamnosus GG 1 cap PO DAILY 07/23/20 07/23/20 [Culturelle] Loperamide [Imodium] 2 mg PO Q6H PRN 07/23/20 07/23/20 Loteprednol Etabonate 1 drops EACHEYE BID 07/23/20 07/23/20 Magnesium Hydroxide [Milk of 30 ml PO Q24H PRN 07/23/20 07/23/20 Magnesia] Melatonin 3 mg PO HS 07/23/20 07/23/20 Mineral Oil [Mineral Oil Enema] 1 unit RC Q24H PRN 07/23/20 07/23/20 Nitroglycerin [Nitrostat] 0.4 mg SL Q5M PRN 07/23/20 07/23/20 Ondansetron HCl [Zofran] 4 mg PO Q8H PRN 07/23/20 07/23/20 Prednisolone Acetate/Pf 1 drops EACHEYE BID 07/23/20 07/23/20 [Prednisolone Acet 1% Eye Drop] Propylene Glycol/Peg 400/Pf 1 each EACHEYE Q4H PRN 07/23/20 07/23/20 [Systane 0.3-0.4% Eye Drops] Simethicone [Mylicon] 160 mg PO Q6H PRN 07/23/20 07/23/20 Sodium Chloride [Saline Nasal 1 sprays BIBI Q4HR PRN 07/23/20 07/23/20 [place]] Trolamine Salicylate [Analgesic] 1 applic TP Q6H PRN 07/23/20 07/23/20 Vitamin B Complex 1 each PO DAILY 07/23/20 07/23/20 hydrOXYzine HCL [Hydroxyzine HCl] 50 mg PO Q6H PRN 07/23/20 07/23/20 - Allergies Allergies/Adverse Reactions: Allergies Allergy/AdvReac Type Severity Reaction Status Date / Time Latex, Natural Rubber Allergy Unknown Verified 07/22/20 17:05 mupirocin Allergy Rash Verified 07/22/20 17:05 silver Allergy Rash Verified 07/22/20 17:05 methotrexate AdvReac Headache Verified 07/22/20 17:05 - Social History Does the pt smoke?: No Smoking Status: Never smoker Does the pt drink ETOH?: No Does the pt have substance abuse?: No - Immunizations Immunizations are current?: Yes - POLST Patient has POLST: No PD ED PE NORMAL - Vitals Vital signs reviewed: Yes - General General: Other (Alert, Uncomfortable appearing) - HEENT HEENT: Atraumatic, PERRL, EOMI, Moist mucous membranes, Pharynx benign - Neck Neck: Supple, no meningeal sign - Cardiac Cardiac: Other (Borderline tachycardic rate, regular rhythm) - Respiratory Respiratory: Other (Bilateral coarse breath sounds and crackles) - Abdomen Abdomen: Non tender, Non distended, Other (Morbid obesity) - Female Female : Deferred - Rectal Rectal: Deferred - Back Back: No spinal TTP - Derm Derm: No rash - Extremities Extremities: Other (Severe bilateral lower extremity edema. Bilateral leg wounds) - Neuro Neuro: Other (Alert) - Psych Psych: Normal mood, Normal affect Results - Vitals Vitals: Oxygen O2 Source Nasal cannula Oxygen Flow Rate 5 - Labs Labs: Laboratory Tests 07/22/20 07/22/20 07/22/20 16:18 16:18 16:18 WBC 5.7 RBC 3.04 L Hgb 9.6 L Hct 30.8 L MCV 101.3 H MCH 31.6 H MCHC 31.2 L RDW 20.8 H Plt Count 211 MPV 11.0 H Neut # (Auto) 4.0 Lymph # (Auto) 0.8 L [place] # (Auto) 0.7 Eos # (Auto) 0.0 Baso # (Auto) 0.0 Absolute Nucleated RBC 0.00 Nucleated RBC % 0.0 WBC Morphology NORMAL APPEARANCE Platelet Estimate NORMAL (130-450,000) Platelet Morphology NORMAL APPEARANCE RBC Morph Micro Appear 1+ POLYCHROMASIA ESR PT 15.6 H INR 1.4 H APTT 31.3 D-Dimer 427.4 H VBG pH VBG pCO2 VBG pO2 VBG HCO3 VBG Total CO2 VBG O2 Saturation VBG Base Excess Sodium 136 Potassium 3.9 Chloride 90 L Carbon Dioxide 37 H Anion Gap 9.0 BUN 42 H Creatinine 1.0 Estimated GFR (MDRD) 53 L Glucose 108 H Lactic Acid Calcium 8.0 L Total Bilirubin 1.0 AST 60 H ALT 18 Alkaline Phosphatase 290 H Troponin I High Sens C-Reactive Protein 3.7 H B-Natriuretic Peptide Total Protein 6.1 L Albumin 2.1 L Globulin 4.0 Albumin/Globulin Ratio 0.5 L Lipase 26 07/22/20 07/22/20 07/22/20 16:18 16:18 16:18 WBC RBC Hgb Hct MCV MCH MCHC RDW Plt Count MPV Neut # (Auto) Lymph # (Auto) [place] # (Auto) Eos # (Auto) Baso # (Auto) Absolute Nucleated RBC Nucleated RBC % WBC Morphology Platelet Estimate Platelet Morphology RBC Morph Micro Appear ESR 45 H PT INR APTT D-Dimer VBG pH VBG pCO2 VBG pO2 VBG HCO3 VBG Total CO2 VBG O2 Saturation VBG Base Excess Sodium Potassium Chloride Carbon Dioxide Anion Gap BUN Creatinine Estimated GFR (MDRD) Glucose Lactic Acid Calcium Total Bilirubin AST ALT Alkaline Phosphatase Troponin I High Sens 69.9 H* C-Reactive Protein B-Natriuretic Peptide 850 H Total Protein Albumin Globulin Albumin/Globulin Ratio Lipase 07/22/20 07/22/20 16:18 16:18 WBC RBC Hgb Hct MCV MCH MCHC RDW Plt Count MPV Neut # (Auto) Lymph # (Auto) [place] # (Auto) Eos # (Auto) Baso # (Auto) Absolute Nucleated RBC Nucleated RBC % WBC Morphology Platelet Estimate Platelet Morphology RBC Morph Micro Appear ESR PT INR APTT D-Dimer VBG pH 7.421 H VBG pCO2 59.8 H VBG pO2 59.0 H VBG HCO3 38.0 H VBG Total CO2 39.8 H VBG O2 Saturation 90.0 H VBG Base Excess 11.6 H Sodium Potassium Chloride Carbon Dioxide Anion Gap BUN Creatinine Estimated GFR (MDRD) Glucose Lactic Acid 1.5 Calcium Total Bilirubin AST ALT Alkaline Phosphatase Troponin I High Sens C-Reactive Protein B-Natriuretic Peptide Total Protein Albumin Globulin Albumin/Globulin Ratio Lipase PD MEDICAL DECISION MAKING - ED course ED course: 5:15pm - d/w daughter karen re: goals of care. she expressed that she Believe the patient's wishes for no heroic measures however she would like to stay alive to the best of her ability. At this time the daughter does approve central line placement if necessary for pressors since patient will not tolerate iv fluids given her volume overloaded status. The patient is DNR/DNI and should not undergo any aggressive interventions, e.g., for heart attack or stroke. we will admit for remdesivir and symptomatic treatment. Departure - Departure Disposition: 66 [facility] DC/Xfer Clinical Impression: COVID-19, Weakness, Generalized body aches, GLEN (acute kidney injury), Elevated troponin, COPD (chronic obstructive pulmonary disease), CHF exacerbation Condition: Serious Discharge Date/Time: 07/22/20 20:15
[2020-07-22] MEDS ORDERED: ONDANSETRON ODT 4 MG TABLET TL PRN (17:37)
[2020-07-22] MEDS ORDERED: ONDANSETRON 4 MG/2 ML VIAL IVP PRN (17:37)
[2020-07-22] MEDS ORDERED: IOVERSOL 320 100 ML VIAL IVP ONE ×2 (18:10→19:22)
[2020-07-22 18:15] LABS: PLATELET ESTIMATE, MANUAL NORMAL (130-450,000) (NORMAL); PLATELET MORPHOLOGY NORMAL APPEARANCE (NORMAL)
--- NOTE | 2020-07-22 19:29 | HISTORY & PHYSICAL EXAMINATION ---
Chief Complaint - Chief Complaint Chief Complaint: hypoxia History of Present Illness - Admitted From Admitted From:: [facility] ED - History Obtained From Records Reviewed: Yes History obtained from: ED physician and patient - History of Present Illness HPI Comment/Other: Patient is an 80-year-old morbidly obese female With medical history significant for COPD, CHF, pulmonary hypertension, atrial fibrillation, venous stasis ulcers who presented from [facility] with reported hypoxia. She is normally on 2 L of oxygen via nasal cannula at baseline however it was noted that she was requiring 5 L with an oxygen saturation in the 80s. She was diagnosed with Covid 8 days ago. For concern that her clinical status was worsening she was transferred to the ED for further treatment. In the ED work-up showed BNP of 850, troponin of 69.9, INR 1.4. She had systolic blood pressures in the 70s to 90s CT of the chest showed groundglass opacities, trace pleural effusion and gravitational changes. In the setting of cardiomegaly, findings were suggestive of CHF and pulmonary edema however viral pneumonia could not be excluded 1 groundglass opacity in the upper lobes were considered. At bedside the patient denies chest pain, dyspnea, abdominal pain, nausea, vomiting, fever or chills. She complains of general pain because she was just recently transferred from one bed to the other. Normally she is transferred from bed to her wheelchair using a Roxy lift. She has 3+ lower extremity edema and chronic venous stasis ulcers on her shins bilaterally. Her heart rate is irregularly irregular, her lungs are clear to auscultation bilaterally. She does not have labored breathing. She had a right femoral venous central line placed, received 1 dose of remdesivir 200 mg and dexamethasone 6mg IV in the ED and was transferred to the ICU for further treatment. 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 Mother is from diabetes in her 80s. She has 2 brothers, 1 from an MVA, the other one has diabetes. 2 sisters one is blind and the other one is diabetic with one leg amputation. Living arrangement: [facility] ([facility]) Social History Notes: Patient resides at [facility]. She does not consume alcohol or use recreational substances. She was for 62 years but is currently . - POLST Patient has POLST: No POLST Status: DNR Meds/Allgy - Home Medications Home Medications: Ambulatory Orders Medication Instructions Recorded Confirmed Furosemide 40 tab PO DAILY 02/15/15 06/09/16 Loratadine 10 mg PO DAILY 02/15/15 06/09/16 Losartan Potassium 25 mg PO DAILY 02/15/15 06/09/16 Potassium Chloride 10 meq PO DAILY 02/15/15 07/22/20 Warfarin Sodium 2 mg PO DAILY 02/15/15 06/09/16 raNITIdine HCL [Ranitidine HCl] 150 mg PO DAILY 02/15/15 06/08/16 Acetaminophen 325 mg PO Q6H PRN 06/08/16 06/09/16 Calcium Carbonate [Calcium] 500 mg PO PRN PRN 06/08/16 07/22/20 Famotidine [Pepcid] 20 mg PO DAILY 30 Days tablet 06/09/16 Hydrocodone/Acetaminophen 1 tab PO Q4H PRN 06/09/16 06/09/16 [Hydrocodon-Acetaminophn 10-325] Metoprolol Tartrate [Lopressor] 25 mg PO BID 06/09/16 06/09/16 Multivitamin [Multiple Vitamins] 1 each PO DAILY 06/09/16 07/22/20 Nitrofurantoin [Macrobid] 100 mg PO DAILY #5 capsule 06/09/16 Nystatin Cream [Mycostatin Cream] 1 applic TOP DAILY PRN 06/09/16 06/09/16 Senna [Senokot] 17.2 mg PO BID 06/09/16 07/22/20 diltiaZEM CD [Cardizem Cd] 240 mg PO DAILY 06/09/16 06/09/16 polyethylene glycoL 3350 [Miralax] 17 gm PO DAILY PRN 06/09/16 06/09/16 Albuterol Sulf [Ventolin Hfa 2 puffs INH Q4HR PRN #1 inhaler 08/06/17 Inhaler] Benzonatate [Tessalon Perle] 100 - 200 mg PO TID PRN #30 capsule 08/06/17 Cephalexin [Keflex] 500 mg PO Q6H #40 capsule 08/06/17 Doxycycline Hyclate 100 mg PO BID #20 capsule 08/06/17 predniSONE [Prednisone] 40 mg PO DAILY #10 tablet 08/06/17 Gabapentin [Neurontin] 100 mg PO TID 07/22/20 07/22/20 Hydrocodone/Acetaminophen 1 tab PO Q6HR PRN 07/22/20 07/22/20 [Hydrocodone-Acetamin 10-300 mg] Metoprolol Succinate [Toprol Xl] 25 mg PO BID 07/22/20 07/22/20 Potassium Chloride [K-Dur] 20 meq PO BID 07/22/20 07/22/20 Torsemide 80 mg PO DAILY 07/22/20 07/22/20 allopurinoL [Zyloprim] 100 mg PO BID 07/22/20 07/22/20 - Allergies Allergies/Adverse Reactions: Allergies Allergy/AdvReac Type Severity Reaction Status Date / Time Latex, Natural Rubber Allergy Unknown Verified 07/22/20 17:05 mupirocin Allergy Rash Verified 07/22/20 17:05 silver Allergy Rash Verified 07/22/20 17:05 methotrexate AdvReac Headache Verified 07/22/20 17:05 Review of Systems - Constitutional Constitutional: denies: Fatigue, Fever, Chills, Weakness, Diaphoresis - Eyes Eyes: denies: Pain, Vision loss, Dipolpia - Ears, Nose & Throat Ears, Nose & Throat: denies: Ear pain, Sore throat, Hoarseness - Cardiovascular Cariovascular: reports: Irregular heart rate, Edema. denies: Palpitations, Chest pain, Lightheadedness, Syncope - Respiratory Respiratory: denies: Cough, Sputum production, Wheezing, SOB at rest - Gastrointestinal Gastrointestinal: reports: Other (Obese abdomen). denies: Abdominal pain, Abdominal distention, Constipation, Nausea, Vomiting, Coffee grounds emesis, Reflux/heartburn - Genitourinary Genitourinary: denies: Dysuria, Frequency, Urgency, Hematuria, Incontinence - Musculoskeletal Musculoskeletal: denies: Muscle pain, Back pain, Muscle aches - Integumentary Integumentary: reports: Other (Lateral lower extremity venous stasis ulcers). denies: Rash, Pruritis, Lesions - Neurological Neurological: denies: Focal weakness, Headache, Dizziness - Psychiatric Psychiatric: denies: Depression, Anxiety - Endocrine Endocrine: denies: Polyuria, Polydypsia - Hematologic/Lymphatic Hematologic/Lymphatic: denies: Anemia, Bruising Prior Level of Functionality: Patient resides at [facility] She is morbidly obese, mainly bed bound. Is dependent for activities of daily living. She is normally transferred from bed to her wheelchair using a Roxy lift. Exam - Vital Signs Vital Signs: Vital Signs x48h Temp Pulse Resp BP Pulse Ox 07/22/20 18:56 101 H 18 95/49 L 96 07/22/20 17:53 80 10 L 79/51 L 07/22/20 17:07 75 18 95/53 L 07/22/20 16:30 93 21 90/41 L 94 07/22/20 16:07 86 17 74/49 L 94 07/22/20 16:00 90 13 77/39 L 99 07/22/20 15:58 36.7 C 97 18 84/45 L 100 - Physical Exam General Appearance: positive: Alert, Mild distress, Moderate distress, Other (Morbid obesity with a BMI of 54) Eyes Bilateral: positive: PERRL, EOMI ENT: positive: No signs of dehydration Neck: positive: No JVD, Trachea midline Respiratory: positive: Chest non-tender, No respiratory distress, Breath sounds nml. negative: Wheezes, Rales, Rhonchi Cardiovascular: positive: No murmur, Irregularly irregular Abdomen: positive: Non-tender, No organomegaly, Nml bowel sounds, No distention, Other (Morbidly obese abdomen). negative: Guarding, Rebound Back: positive: Nml inspection Skin: positive: Other (Bilateral venousstasis ulcers/ Open blisters) Extremities: positive: Pedal edema Neurologic/Psychiatric: positive: Oriented x3. negative: Mood/affect nml (Patient is somewhat upset) Conclusion/Plan - Problem List (1) COVID-19 Conclusion/Plan: Patient currently does not have any significant respiratory distress. She is at her baseline of 2 L of oxygen via nasal cannula with an oxygen saturation in the high 90s. Patient was given a dose of remdesivir 200 mg IV once in the ED. We will continue remdesivir 100 mg IV daily for 4 more days. Patient was given dexamethasone 6 mg IV once in the ED. We will continue for 4 more days. We will continue to monitor for any potential changes in her respiratory status and treat accordingly. We will hold off on administering antibiotics at the moment. (2) CHF (congestive heart failure) Conclusion/Plan: Suspect mild CHF exacerbation. Patient's BNP was 850. She has 3+ lower extremity edema. When available we will obtain a 2D echocardiogram. Will resume patient's metoprolol and torsemide when appropriate to do so. Will administer Lasix 40 mg IV once. Qualifiers: Heart failure chronicity: acute on chronic (3) Elevated troponin Conclusion/Plan: Possibly demand ischemia. Likely related to CHF exacerbation. Suspicion for acute coronary syndrome low Patient does not have chest pain. Initial troponin was 69.9. Repeat troponin was 70.5 (4) Atrial fibrillation Conclusion/Plan: Will resume patient's metoprolol succinate 25 mg p.o. twice daily and diltiazem 240 mg CD daily when appropriate to do so. For now we will hold due to patient's low blood pressure It appears the patient is on warfarin 2 mg p.o. daily. Will resume once verified by pharmacy. Patient's INR is currently 1.4. (5) Physical deconditioning Conclusion/Plan: Chronic. Patient is morbidly obese with a BMI of 54. She is mainly bedbound and is transferred from bed to wheelchair using a Roxy lift. Patient had undergone lap band in the past which apparently was unsuccessful in helping with weight control. (7) Venous stasis ulcers of both lower extremities Conclusion/Plan: Will apply ointment and dressing to area and wrap. We will attempt to diurese patient. We will refer patient back to outpatient management upon discharge (8) Fibromyalgia Conclusion/Plan: Likely confounded by patient's body habitus and multiple medical conditions Patient is on gabapentin and [place]. - Lab Results Fish Bones: 07/22/20 16:18 07/22/20 16:18 Core Measures - Anticipated LOS I expect patient to be DC'd or transferred within 96 hours.: Yes - DVT/VTE - Prophylaxis VTE/DVT Device ordered at admit?: Yes VTE/DVT Prophylaxis med ordered at admit?: Yes
--- NOTE | 2020-07-22 20:15 | CT Report ---
PROCEDURE: ANGIO CHEST W/WO INDICATIONS: Hypoxia. Covid. Elevated d-dimer. CONTRAST: IV CONTRAST: Optiray 320 ml: 80 PO CONTRAST: *NO PO CONTRAST TECHNIQUE: After the administration of intravenous contrast, 2 mm thick sections acquired from the pulmonary api elise to the posterior costophrenic angles. 3-dimensional maximum intensity projection (MIP) coronal a nd sagittal reformats were then acquired through the thorax. For radiation dose reduction, the follow ing was used: automated exposure control, adjustment of mA and/or kV according to patient size. COMPARISON: Chest x-ray performed earlier the same day FINDINGS: Image quality: Limited due to body habitus and suboptimal bolus timing, the study is nondiagnostic fo r peripheral pulmonary emboli.. Pulmonary arteries: Pulmonary arteries are mildly prominent on the right and normal size on the left . There is streak artifact obscuring good visualization of lobar and segmental pulmonary arteries. Lungs and pleura: Groundglass opacities in the right upper lobe and bilateral dependent thickening al dominic the left and right major fissures. Strandy parenchymal opacity at both lung bases. Small bilatera l pleural effusions. Small groundglass opacity in the right upper lobe laterally.. No pleural effusi ons or pneumothorax. Central and peripheral airways are patent. Mediastinum: Heart is diffusely enlarged and there is preferential opacification of the intrahepatic inferior vena cava. Mild aortic arch calcification. No pericardial effusion. Mild AP window adenopath y and right hilar adenopathy. The esophagus is normal without hiatal hernia. Bones and chest wall: No obvious vertebral body compression fractures or significant displaced rib fr acture. Abdomen: The visible upper abdomen demonstrates hepatomegaly, splenomegaly, cholecystectomy changes, presence of laparoscopic gastric band, and vascular calcification.. IMPRESSION: 1. Limited exam. Nondiagnostic for pulmonary embolus. 2. Groundglass opacities, trace pleural effusions, and gravitational changes. In the setting of cardi omegaly, findings are suggestive of CHF and pulmonary edema, but groundglass opacity in the upper lob es can be seen with viral pneumonia. 3. Mild reactive right hilar and AP window adenopathy. Reviewed by: Natalya Cool MD on 07/22/2020 8:14 PM PST Approved by: Natalya Cool MD on 07/22/2020 8:14 PM PST Station ID: [id number]
[2020-07-22] MEDS ORDERED: FUROSEMIDE 40 MG/4 ML VIAL IVP STA (22:08)
[2020-07-22] MEDS: SODIUM CHLORIDE FLUSH 0.9% 10 ML SYRINGE IVP SCH (23:29)
[2020-07-22] MEDS: ENOXAPARIN 40 MG/0.4 ML SYRINGE SUBQ SCH ×2 (23:30→23:46)
[2020-07-22] MEDS: HYDROcod/ACETAM 5/325 MG TABLET PO PRN (23:38)
[2020-07-23] MEDS: SODIUM CHLORIDE FLUSH 0.9% 10 ML SYRINGE IVP PRN (04:15)
[2020-07-23 04:45] LABS: HGB - HEMOGLOBIN 9.3 g/dL (12.0-16.0); LYMPHOCYTES # (AUTO) 0.6 10^3/uL (1.5-3.5); LYMPHOCYTES % (AUTO) 17.3 %; MEAN CORPUSCULAR HEMOGLOBIN 31.1 pg (27.0-31.0); MEAN CORPUSCULAR HGB CONC 30.1 g/dL (32.0-36.0); MEAN CORPUSCULAR VOLUME 103.3 fL (81.0-99.0); MEAN PLATELET VOLUME 11.1 fL (7.9-10.8); MONOCYTES # (AUTO) 0.1 10^3/uL (0.0-1.0); MONOCYTES % (AUTO) 3.8 %; NEUTROPHILS # (AUTO) 2.9 10^3/uL (1.5-6.6); NEUTROPHILS % (AUTO) 78.6 %; PLT - PLATELET COUNT 205 10^3/uL (130-450); RED BLOOD COUNT 2.99 10^6/uL (4.20-5.40); RED CELL DISTRIBUTION WIDTH 20.9 % (12.0-15.0); WHITE BLOOD COUNT 3.7 x10^3/uL (4.8-10.8)
[2020-07-23 05:05] LABS: MAGNESIUM 2.1 mg/dL (1.7-2.8); PHOSPHORUS 4.3 mg/dL (2.5-4.6)
--- NOTE | 2020-07-23 07:47 | PROVIDER PROGRESS NOTE ---
Subjective - Prog Note Date Prog Note Date: 07/23/20 - Subjective Subjective: She reports feeling a little short of breath but overall has no complaints. She denies a cough or chest pain. She was able to speak with her children on the phone this morning. Current Medications - Current Medications Current Medications: Active Medications Acetaminophen (Acetaminophen 325 Mg Tablet) 650 mg PO Q4HR PRN PRN Reason: Pain 1 to 4 Hydrocodone Bitart/Acetaminophen (Hydrocod/Acetam 5/325 Mg Tablet) 1 tab PO Q4HR PRN PRN Reason: PAIN Last Admin: 07/23/20 10:04 Dose: 1 tab Documented by: Allopurinol (Allopurinol 100 Mg Tablet) 100 mg PO DAILY [facility] Enoxaparin Sodium (Enoxaparin 40 Mg/0.4 Ml Syringe) 40 mg SUBQ HS [facility] Last Admin: 07/22/20 23:46 Dose: 40 mg Documented by: Gabapentin (Gabapentin 100 Mg Capsule) 200 mg PO TID [facility] Metoprolol Succinate (Metoprolol Succinate 25 Mg Tablet) 25 mg PO BID [facility] Mineral Oil (Min Oil/Dimethicon/Coconut Oil 92 Gm Tube) 1 applic TOP PRN PRN PRN Reason: Skin Care Last Admin: 07/23/20 09:19 Dose: 1 applic Documented by: Multivitamins (Multivitamin Tablet) 1 tab PO DAILYWM [facility] Nystatin (Nystatin Powder 15 Gm) 1 applic TOP BID [facility] Last Admin: 07/23/20 09:15 Dose: 1 applic Documented by: Ondansetron HCl (Ondansetron Odt 4 Mg Tablet) 4 mg TL Q6HR PRN PRN Reason: Nausea / Vomiting Ondansetron HCl (Ondansetron 4 Mg/2 Ml Vial) 4 mg IVP Q6HR PRN PRN Reason: Nausea / Vomiting Polyethylene Glycol (Polyethylene Glycol 3350 17 Gm Packet) 17 gm PO DAILY [facility] Last Admin: 07/23/20 09:15 Dose: 17 gm Documented by: Senna (Senna 8.6 Mg Tablet) 8.6 mg PO DAILY PRN PRN Reason: Constipation Sodium Chloride (Sodium Chloride Flush 0.9% 10 Ml Syringe) 10 ml IVP 0100,0900,1700 [facility] Last Admin: 07/23/20 09:16 Dose: 10 ml Documented by: Sodium Chloride (Sodium Chloride Flush 0.9% 10 Ml Syringe) 10 ml IVP PRN PRN PRN Reason: NEEDED PER PROVIDER ORDERS Last Admin: 07/23/20 04:15 Dose: 60 ml Documented by: Calcium Carbonate [Calcium] 1,000 mg PO Q2H PRN 06/08/16 Hydrocodone/Acetaminophen [Hydrocodon-Acetaminophn 10-325] 1 tab PO Q6H PRN 06/09/16 Multivitamin [Multiple Vitamins] 1 each PO DAILY 06/09/16 Senna [Senokot] 8.6 mg PO DAILY PRN 06/09/16 polyethylene glycoL 3350 [Miralax] 17 gm PO DAILY 06/09/16 Gabapentin [Neurontin] 200 mg PO TID 07/22/20 Metoprolol Succinate [Toprol Xl] 25 mg PO BID 07/22/20 Potassium Chloride [K-Dur] 20 meq PO BIDWM 07/22/20 Torsemide 80 mg PO DAILY 07/22/20 allopurinoL [Zyloprim] 100 mg PO DAILY 07/22/20 Ascorbic Acid 500 mg PO DAILY 07/23/20 Bisacodyl Supp [Dulcolax Supp] 10 mg [place] Q24H PRN 07/23/20 Diclofenac Sodium [Voltaren Arthritis Pain] 2 gm TP Q6H PRN 07/23/20 Ipratropium/Albuterol [Combivent Respimat] 1 puffs IH Q6H PRN 07/23/20 Lactobacillus Rhamnosus GG [Culturelle] 1 cap PO DAILY 07/23/20 Loperamide [Imodium] 2 mg PO Q6H PRN 07/23/20 Loteprednol Etabonate 1 drops EACHEYE BID 07/23/20 Magnesium Hydroxide [Milk of Magnesia] 30 ml PO Q24H PRN 07/23/20 Melatonin 3 mg PO HS 07/23/20 Mineral Oil [Mineral Oil Enema] 1 unit RC Q24H PRN 07/23/20 Nitroglycerin [Nitrostat] 0.4 mg SL Q5M PRN 07/23/20 Ondansetron HCl [Zofran] 4 mg PO Q8H PRN 07/23/20 Prednisolone Acetate/Pf [Prednisolone Acet 1% Eye Drop] 1 drops EACHEYE BID 07/23/20 Propylene Glycol/Peg 400/Pf [Systane 0.3-0.4% Eye Drops] 1 each EACHEYE Q4H PRN 07/23/20 Simethicone [Mylicon] 160 mg PO Q6H PRN 07/23/20 Sodium Chloride [Saline Nasal [place]] 1 sprays BIBI Q4HR PRN 07/23/20 Trolamine Salicylate [Analgesic] 1 applic TP Q6H PRN 07/23/20 Vitamin B Complex 1 each PO DAILY 07/23/20 hydrOXYzine HCL [Hydroxyzine HCl] 50 mg PO Q6H PRN 07/23/20 Objective - Vital Signs/Intake & Output Reviewed Vital Signs: Yes Vital Signs: Vital Signs Temp Pulse Pulse Resp BP BP Pulse Ox 07/23/20 07:00 93 15 85/63 L 94 07/23/20 06:00 75 15 98/59 L 15 L 07/23/20 05:55 85 12 07/23/20 05:50 76 13 07/23/20 05:45 81 16 07/23/20 05:40 82 15 07/23/20 05:35 85 16 07/23/20 05:30 83 15 07/23/20 05:25 77 15 07/23/20 05:20 79 13 07/23/20 05:15 75 14 07/23/20 05:10 81 18 07/23/20 05:05 79 16 07/23/20 05:01 85 17 101/59 L 07/23/20 05:00 76 81 15 101/59 L 96 07/23/20 04:55 82 20 07/23/20 04:50 90 17 07/23/20 04:45 91 14 07/23/20 04:40 76 16 07/23/20 04:35 83 13 07/23/20 04:30 84 14 07/23/20 04:25 84 16 07/23/20 04:20 75 11 L 07/23/20 04:15 78 11 L 07/23/20 04:10 83 16 07/23/20 04:05 81 20 07/23/20 04:01 81 20 07/23/20 04:00 36.5 C 85 84 15 107/85 H 107/85 H 97 07/23/20 03:59 78 21 07/23/20 03:55 83 15 07/23/20 03:50 86 23 Intake & Output: Intake & Output 07/20/20 07/21/20 07/22/20 07/23/20 23:59 23:59 23:59 23:59 Intake Total 490 485 Output Total 750 Balance 490 -265 - Objective General Appearance: positive: No acute distress, Alert Eyes Bilateral: positive: Normal inspection, Conjunctivae nml ENT: positive: ENT inspection nml, Other (Nasal cannula in place.) Neck: positive: Other (Area of ecchymosis over the right anterior aspect of the neck.) Respiratory: positive: No respiratory distress, Other (Breath sounds are dim inished. Exam is limited due to body habitus) Cardiovascular: positive: Irregularly irregular. negative: Tachycardia, Bradycardia, Systolic murmur Abdomen: positive: Non-tender, No distention Skin: positive: Warm, Dry, Other (Dressing is in place over her bilateral lower extremities where she had blistering of the skin. There was no obvious erythema.) Extremities: positive: Pedal edema (She has +3 pitting edema in her bilateral lower extremities.) Neurologic/Psychiatric: negative: Disoriented to person, Disoriented to place - Lab Results Fish Bones: 07/23/20 04:15 07/23/20 04:15 Other Labs: Lab Results x24hrs 07/23/20 07/23/20 07/23/20 Range/Units 04:29 04:15 04:15 WBC 3.7 L (4.8-10.8) x10^3/uL RBC 2.99 L (4.20-5.40) 10^6/uL Hgb 9.3 L (12.0-16.0) g/dL Hct 30.9 L (37.0-47.0) % MCV 103.3 H (81.0-99.0) fL MCH 31.1 H (27.0-31.0) pg MCHC 30.1 L (32.0-36.0) g/dL RDW 20.9 H (12.0-15.0) % Plt Count 205 (130-450) 10^3/uL MPV 11.1 H (7.9-10.8) fL Neut # (Auto) 2.9 (1.5-6.6) 10^3/uL Lymph # (Auto) 0.6 L (1.5-3.5) 10^3/uL [place] # (Auto) 0.1 (0.0-1.0) 10^3/uL Eos # (Auto) 0.0 (0.0-0.7) 10^3/uL Baso # (Auto) 0.0 (0.0-0.1) 10^3/uL Absolute Nucleated RBC 0.00 x10^3/uL Nucleated RBC % 0.0 /100WBC WBC Morphology (NORMAL) Platelet Estimate (NORMAL) Platelet Morphology (NORMAL) RBC Morph Micro Appear (NORMAL) ESR (0-30) mm/Hr PT (9.9-12.6) secs INR (0.8-1.2) APTT (24.9-33.3) secs D-Dimer (200.0-255.0) ng/mL VBG pH (7.31-7.41) VBG pCO2 (41-51) mmHg VBG pO2 (25-47) mmHg VBG HCO3 (23-28) mmol/L VBG Total CO2 (24-29) mmol/L VBG O2 Saturation (60-80) % VBG Base Excess (-2 - +2) mmol/L Sodium 138 (135-145) mmol/L Potassium 3.5 (3.5-5.0) mmol/L Chloride 91 L (101-111) mmol/L Carbon Dioxide 36 H (21-32) mmol/L Anion Gap 11.0 (6-13) BUN 40 H (6-20) mg/dL Creatinine 1.0 (0.4-1.0) mg/dL Estimated GFR (MDRD) 53 L (>89) Glucose 126 H (70-100) mg/dL Lactic Acid (0.5-2.2) mmol/L Calcium 8.0 L (8.5-10.3) mg/dL Phosphorus 4.3 (2.5-4.6) mg/dL Magnesium 2.1 (1.7-2.8) mg/dL Total Bilirubin (0.2-1.0) mg/dL AST (10-42) IU/L ALT (10-60) IU/L Alkaline Phosphatase (42-121) IU/L Troponin I High Sens (2.3-14.8) ng/L C-Reactive Protein (0-1.0) mg/dL B-Natriuretic Peptide (5-100) pg/mL Total Protein (6.7-8.2) g/dL Albumin 2.0 L (3.2-5.5) g/dL Globulin (2.1-4.2) g/dL Albumin/Globulin Ratio (1.0-2.2) Lipase (22-51) U/L Nasal Screen MRSA (PCR) (NEGATIVE) 07/22/20 07/22/20 07/22/20 Range/Units 20:55 20:10 16:18 WBC (4.8-10.8) x10^3/uL RBC (4.20-5.40) 10^6/uL Hgb (12.0-16.0) g/dL Hct (37.0-47.0) % MCV (81.0-99.0) fL MCH (27.0-31.0) pg MCHC (32.0-36.0) g/dL RDW (12.0-15.0) % Plt Count (130-450) 10^3/uL MPV (7.9-10.8) fL Neut # (Auto) (1.5-6.6) 10^3/uL Lymph # (Auto) (1.5-3.5) 10^3/uL [place] # (Auto) (0.0-1.0) 10^3/uL Eos # (Auto) (0.0-0.7) 10^3/uL Baso # (Auto) (0.0-0.1) 10^3/uL Absolute Nucleated RBC x10^3/uL Nucleated RBC % /100WBC WBC Morphology (NORMAL) Platelet Estimate (NORMAL) Platelet Morphology (NORMAL) RBC Morph Micro Appear (NORMAL) ESR (0-30) mm/Hr PT (9.9-12.6) secs INR (0.8-1.2) APTT (24.9-33.3) secs D-Dimer (200.0-255.0) ng/mL VBG pH (7.31-7.41) VBG pCO2 (41-51) mmHg VBG pO2 (25-47) mmHg VBG HCO3 (23-28) mmol/L VBG Total CO2 (24-29) mmol/L VBG O2 Saturation (60-80) % VBG Base Excess (-2 - +2) mmol/L Sodium (135-145) mmol/L Potassium (3.5-5.0) mmol/L Chloride (101-111) mmol/L Carbon Dioxide (21-32) mmol/L Anion Gap (6-13) BUN (6-20) mg/dL Creatinine (0.4-1.0) mg/dL Estimated GFR (MDRD) (>89) Glucose (70-100) mg/dL Lactic Acid 1.5 (0.5-2.2) mmol/L Calcium (8.5-10.3) mg/dL Phosphorus (2.5-4.6) mg/dL Magnesium (1.7-2.8) mg/dL Total Bilirubin (0.2-1.0) mg/dL AST (10-42) IU/L ALT (10-60) IU/L Alkaline Phosphatase (42-121) IU/L Troponin I High Sens 70.5 H* (2.3-14.8) ng/L C-Reactive Protein (0-1.0) mg/dL B-Natriuretic Peptide (5-100) pg/mL Total Protein (6.7-8.2) g/dL Albumin (3.2-5.5) g/dL Globulin (2.1-4.2) g/dL Albumin/Globulin Ratio (1.0-2.2) Lipase (22-51) U/L Nasal Screen MRSA (PCR) NEGATIVE (NEGATIVE) 07/22/20 07/22/20 07/22/20 Range/Units 16:18 16:18 16:18 WBC (4.8-10.8) x10^3/uL RBC (4.20-5.40) 10^6/uL Hgb (12.0-16.0) g/dL Hct (37.0-47.0) % MCV (81.0-99.0) fL MCH (27.0-31.0) pg MCHC (32.0-36.0) g/dL RDW (12.0-15.0) % Plt Count (130-450) 10^3/uL MPV (7.9-10.8) fL Neut # (Auto) (1.5-6.6) 10^3/uL Lymph # (Auto) (1.5-3.5) 10^3/uL [place] # (Auto) (0.0-1.0) 10^3/uL Eos # (Auto) (0.0-0.7) 10^3/uL Baso # (Auto) (0.0-0.1) 10^3/uL Absolute Nucleated RBC x10^3/uL Nucleated RBC % /100WBC WBC Morphology (NORMAL) Platelet Estimate (NORMAL) Platelet Morphology (NORMAL) RBC Morph Micro Appear (NORMAL) ESR 45 H (0-30) mm/Hr PT (9.9-12.6) secs INR (0.8-1.2) APTT (24.9-33.3) secs D-Dimer (200.0-255.0) ng/mL VBG pH 7.421 H (7.31-7.41) VBG pCO2 59.8 H (41-51) mmHg VBG pO2 59.0 H (25-47) mmHg VBG HCO3 38.0 H (23-28) mmol/L VBG Total CO2 39.8 H (24-29) mmol/L VBG O2 Saturation 90.0 H (60-80) % VBG Base Excess 11.6 H (-2 - +2) mmol/L Sodium (135-145) mmol/L Potassium (3.5-5.0) mmol/L Chloride (101-111) mmol/L Carbon Dioxide (21-32) mmol/L Anion Gap (6-13) BUN (6-20) mg/dL Creatinine (0.4-1.0) mg/dL Estimated GFR (MDRD) (>89) Glucose (70-100) mg/dL Lactic Acid (0.5-2.2) mmol/L Calcium (8.5-10.3) mg/dL Phosphorus (2.5-4.6) mg/dL Magnesium (1.7-2.8) mg/dL Total Bilirubin (0.2-1.0) mg/dL AST (10-42) IU/L ALT (10-60) IU/L Alkaline Phosphatase (42-121) IU/L Troponin I High Sens (2.3-14.8) ng/L C-Reactive Protein (0-1.0) mg/dL B-Natriuretic Peptide 850 H (5-100) pg/mL Total Protein (6.7-8.2) g/dL Albumin (3.2-5.5) g/dL Globulin (2.1-4.2) g/dL Albumin/Globulin Ratio (1.0-2.2) Lipase (22-51) U/L Nasal Screen MRSA (PCR) (NEGATIVE) 07/22/20 07/22/20 07/22/20 Range/Units 16:18 16:18 16:18 WBC (4.8-10.8) x10^3/uL RBC (4.20-5.40) 10^6/uL Hgb (12.0-16.0) g/dL Hct (37.0-47.0) % MCV (81.0-99.0) fL MCH (27.0-31.0) pg MCHC (32.0-36.0) g/dL RDW (12.0-15.0) % Plt Count (130-450) 10^3/uL MPV (7.9-10.8) fL Neut # (Auto) (1.5-6.6) 10^3/uL Lymph # (Auto) (1.5-3.5) 10^3/uL [place] # (Auto) (0.0-1.0) 10^3/uL Eos # (Auto) (0.0-0.7) 10^3/uL Baso # (Auto) (0.0-0.1) 10^3/uL Absolute Nucleated RBC x10^3/uL Nucleated RBC % /100WBC WBC Morphology (NORMAL) Platelet Estimate (NORMAL) Platelet Morphology (NORMAL) RBC Morph Micro Appear (NORMAL) ESR (0-30) mm/Hr PT 15.6 H (9.9-12.6) secs INR 1.4 H (0.8-1.2) APTT 31.3 (24.9-33.3) secs D-Dimer 427.4 H (200.0-255.0) ng/mL VBG pH (7.31-7.41) VBG pCO2 (41-51) mmHg VBG pO2 (25-47) mmHg VBG HCO3 (23-28) mmol/L VBG Total CO2 (24-29) mmol/L VBG O2 Saturation (60-80) % VBG Base Excess (-2 - +2) mmol/L Sodium 136 (135-145) mmol/L Potassium 3.9 (3.5-5.0) mmol/L Chloride 90 L (101-111) mmol/L Carbon Dioxide 37 H (21-32) mmol/L Anion Gap 9.0 (6-13) BUN 42 H (6-20) mg/dL Creatinine 1.0 (0.4-1.0) mg/dL Estimated GFR (MDRD) 53 L (>89) Glucose 108 H (70-100) mg/dL Lactic Acid (0.5-2.2) mmol/L Calcium 8.0 L (8.5-10.3) mg/dL Phosphorus (2.5-4.6) mg/dL Magnesium (1.7-2.8) mg/dL Total Bilirubin 1.0 (0.2-1.0) mg/dL AST 60 H (10-42) IU/L ALT 18 (10-60) IU/L Alkaline Phosphatase 290 H (42-121) IU/L Troponin I High Sens 69.9 H* (2.3-14.8) ng/L C-Reactive Protein 3.7 H (0-1.0) mg/dL B-Natriuretic Peptide (5-100) pg/mL Total Protein 6.1 L (6.7-8.2) g/dL Albumin 2.1 L (3.2-5.5) g/dL Globulin 4.0 (2.1-4.2) g/dL Albumin/Globulin Ratio 0.5 L (1.0-2.2) Lipase 26 (22-51) U/L Nasal Screen MRSA (PCR) (NEGATIVE) 07/22/20 Range/Units 16:18 WBC 5.7 (4.8-10.8) x10^3/uL RBC 3.04 L (4.20-5.40) 10^6/uL Hgb 9.6 L (12.0-16.0) g/dL Hct 30.8 L (37.0-47.0) % MCV 101.3 H (81.0-99.0) fL MCH 31.6 H (27.0-31.0) pg MCHC 31.2 L (32.0-36.0) g/dL RDW 20.8 H (12.0-15.0) % Plt Count 211 (130-450) 10^3/uL MPV 11.0 H (7.9-10.8) fL Neut # (Auto) 4.0 (1.5-6.6) 10^3/uL Lymph # (Auto) 0.8 L (1.5-3.5) 10^3/uL [place] # (Auto) 0.7 (0.0-1.0) 10^3/uL Eos # (Auto) 0.0 (0.0-0.7) 10^3/uL Baso # (Auto) 0.0 (0.0-0.1) 10^3/uL Absolute Nucleated RBC 0.00 x10^3/uL Nucleated RBC % 0.0 /100WBC WBC Morphology NORMAL APPEARANCE (NORMAL) Platelet Estimate NORMAL (130-450,000) (NORMAL) Platelet Morphology NORMAL APPEARANCE (NORMAL) RBC Morph Micro Appear 1+ POLYCHROMASIA (NORMAL) ESR (0-30) mm/Hr PT (9.9-12.6) secs INR (0.8-1.2) APTT (24.9-33.3) secs D-Dimer (200.0-255.0) ng/mL VBG pH (7.31-7.41) VBG pCO2 (41-51) mmHg VBG pO2 (25-47) mmHg VBG HCO3 (23-28) mmol/L VBG Total CO2 (24-29) mmol/L VBG O2 Saturation (60-80) % VBG Base Excess (-2 - +2) mmol/L Sodium (135-145) mmol/L Potassium (3.5-5.0) mmol/L Chloride (101-111) mmol/L Carbon Dioxide (21-32) mmol/L Anion Gap (6-13) BUN (6-20) mg/dL Creatinine (0.4-1.0) mg/dL Estimated GFR (MDRD) (>89) Glucose (70-100) mg/dL Lactic Acid (0.5-2.2) mmol/L Calcium (8.5-10.3) mg/dL Phosphorus (2.5-4.6) mg/dL Magnesium (1.7-2.8) mg/dL Total Bilirubin (0.2-1.0) mg/dL AST (10-42) IU/L ALT (10-60) IU/L Alkaline Phosphatase (42-121) IU/L Troponin I High Sens (2.3-14.8) ng/L C-Reactive Protein (0-1.0) mg/dL B-Natriuretic Peptide (5-100) pg/mL Total Protein (6.7-8.2) g/dL Albumin (3.2-5.5) g/dL Globulin (2.1-4.2) g/dL Albumin/Globulin Ratio (1.0-2.2) Lipase (22-51) U/L Nasal Screen MRSA (PCR) (NEGATIVE) Assessment/Plan - Problem List (1) CHF (congestive heart failure) Impression: It appears her dyspnea is likely more related to her congestive heart failure rather than COVID-19. Her BNP is elevated at greater than 800 and imaging is consistent with pulmonary vascular congestion. She also has significant lower extremity edema. She remains on her baseline 2 L of oxygen. We will continue t o diurese her with Lasix IV on a daily basis. Her blood pressure is soft this is limiting how aggressive we can be with diuresis. If she remains hospitalized for Sunday, we will obtain an echocardiogram then as we do not have a previous echocardiogram to see if this is systolic or diastolic dysfunction. Continue with daily weights. Strict I's and O's. Qualifiers: Heart failure chronicity: acute on chronic (2) COVID-19 Impression: Although she isCOVID-19 positive, does not appear her current symptoms are related to this. CT is more consistent with pulmonary vascular congestion. She has no fever. She did receive remdesivir Decadron yesterday but we will discontinue this as she is on her baseline 2 L of oxygen saturating in the high 90s. If she does become hypoxic despite diuresis for heart failure, we can consider restarting remdesivir and Decadron. Continue with contact precautions. (3) Hypotension Impression: He was initially hypotensive in the emergency department although her blood pressure has improved with IV fluids. Her systolic has ranged from the high 90s to low 100s. She has tolerated IV Lasix and her blood pressure has remained stable. There is no obvious source of infection is time except for her COVID-19 infection. We will hold off on antibiotics given lack of infection. We will hold off on IV fluids given the concern for heart failure. We will continue to gently diurese her as tolerated. If she does become hypotensive, she may need norepinephrine. We will obtain an echocardiogram if she remains hospitalized on Sunday. We will continue her metoprolol. (4) Chronic respiratory failure with hypoxia Impression: She is on 2 L of oxygen at baseline. There is reportedly a history of COPD although she has no history of smoking and her CT did not suggest emphysematous changes. She may be on oxygen due to her history of heart failure. We will continue with 2 L of oxygen via nasal cannula as she is saturating well on that. (5) Atrial fibrillation Impression: She has chronic atrial fibrillation. She is rate controlled and we will continue her metoprolol. She is no longer on Coumadin for unclear reasons. Qualifiers: Atrial fibrillation type: permanent Qualified Code(s): I48.21 - Permanent atrial fibrillation (6) Elevated troponin Impression: Troponin was mildly elevated in the 60s. This is likely demand ischemia she has no angina and her EKG was not suggestive of ischemia. (7) Fibromyalgia Impression: Stable. We will continue with gabapentin and Tylenol as needed. (8) Venous stasis ulcers of both lower extremities Impression: She does have skin breakdown of her bilateral lower extremities with blistering and ulcerations. No obvious erythema. This is likely due to venous stasis and her chronic lower extremity edema. Continue with dressing changes. We will continue to diurese her. We will keep her legs elevated. (9) Morbid obesity Impression: She is morbidly obese with a BMI of 55. She is bedbound at baseline.
[2020-07-23] MEDS ORDERED: DEXAMETHASONE 10 MG/ML VIAL IVP SCH (09:00)
[2020-07-23] MEDS ORDERED: ENOXAPARIN 40 MG/0.4 ML SYRINGE SUBQ SCH (09:00)
[2020-07-23] MEDS: polyethylene glycoL 3350 17 GM PACKET PO SCH (09:15)
[2020-07-23] MEDS: NYSTATIN POWDER 15 GM TOP SCH ×2 (09:15→21:39)
[2020-07-23] MEDS: SODIUM CHLORIDE FLUSH 0.9% 10 ML SYRINGE IVP SCH ×3 (09:16→21:44)
[2020-07-23] MEDS: MIN OIL/DIMETHICON/COCONUT OIL 92 GM TUBE TOP PRN (09:19)
--- NOTE | 2020-07-23 09:31 | PHARMACY PROGRESS NOTE ---
- Best Possible Medication History Admit Date and Time: 07/22/20 0401 Processed by: Pharmacy Medication History completed: Yes Secondary Source(s): Facility MAR as ONLY source As the person ultimately responsible for medication therapy, providers are able to order a medication from an existing home medication list in [facility] via the "Reconcile Routine" prior to Confirmation of that medication by high school learning support teacher. Such practice is discouraged except when the physician, in their clinical judgment, deems that a medical need exists for a medication without regard to previous use.
[2020-07-23] MEDS: HYDROcod/ACETAM 5/325 MG TABLET PO PRN ×2 (10:04→23:34)
[2020-07-23] MEDS ORDERED: WARFARIN 2.5 MG TABLET PO SCH (14:00)
[2020-07-23] MEDS: GABAPENTIN 100 MG CAPSULE PO SCH ×2 (14:26→21:40)
[2020-07-23] MEDS: SENNA 8.6 MG TABLET PO PRN (14:26)
[2020-07-23] MEDS: CALCIUM CARBONATE CHEW 500 MG TABLET PO PRN (16:46)
[2020-07-23] MEDS: METOPROLOL SUCCINATE 25 MG TABLET PO SCH (21:40)
[2020-07-24 04:56] LABS: LYMPHOCYTES # (AUTO) 0.7 10^3/uL (1.5-3.5); LYMPHOCYTES % (AUTO) 19.3 %; MEAN CORPUSCULAR HEMOGLOBIN 31.3 pg (27.0-31.0); MEAN CORPUSCULAR VOLUME 100.7 fL (81.0-99.0); MEAN PLATELET VOLUME 10.7 fL (7.9-10.8); MONOCYTES # (AUTO) 0.4 10^3/uL (0.0-1.0); MONOCYTES % (AUTO) 10.6 %; NEUTROPHILS # (AUTO) 2.6 10^3/uL (1.5-6.6); NEUTROPHILS % (AUTO) 69.8 %; PLT - PLATELET COUNT 192 10^3/uL (130-450); RED BLOOD COUNT 2.88 10^6/uL (4.20-5.40); RED CELL DISTRIBUTION WIDTH 20.1 % (12.0-15.0); WHITE BLOOD COUNT 3.8 x10^3/uL (4.8-10.8)
[2020-07-24 05:07] LABS: CALCIUM 7.8 mg/dL (8.5-10.3); MAGNESIUM 2.1 mg/dL (1.7-2.8); PHOSPHORUS 3.8 mg/dL (2.5-4.6)
[2020-07-24] MEDS: GABAPENTIN 100 MG CAPSULE PO SCH ×3 (06:24→21:00)
[2020-07-24] MEDS: polyethylene glycoL 3350 17 GM PACKET PO SCH (08:09)
[2020-07-24] MEDS: MULTIVITAMIN TABLET PO SCH (08:10)
[2020-07-24] MEDS: SENNA 8.6 MG TABLET PO PRN (08:10)
[2020-07-24] MEDS: allopurinoL 100 MG TABLET PO SCH (09:01)
[2020-07-24] MEDS: HYDROcod/ACETAM 5/325 MG TABLET PO PRN ×2 (09:01→20:56)
[2020-07-24] MEDS: NYSTATIN POWDER 15 GM TOP SCH ×2 (09:23→20:55)
[2020-07-24] MEDS: MIN OIL/DIMETHICON/COCONUT OIL 92 GM TUBE TOP PRN ×3 (09:23→20:55)
[2020-07-24] MEDS: FUROSEMIDE 40 MG/4 ML VIAL IVP SCH (10:28)
[2020-07-24] MEDS: SODIUM CHLORIDE FLUSH 0.9% 10 ML SYRINGE IVP SCH ×2 (10:29→16:14)
[2020-07-24] MEDS: METOPROLOL SUCCINATE 25 MG TABLET PO SCH ×2 (12:08→20:55)
--- NOTE | 2020-07-24 16:34 | ADVANCE CARE PLANNING NOTE ---
Advance Care Planning - Planning Encounter Date: 07/24/20 Time: 16:00 Purpose: To clarify goals of care. Parties in Attendance: The patient, her nurse (Adelaida), and myself. Decisional Capacity of the Patient: Patient has the capacity to make her own medical decisions. - Diagnosis for Encounter (1) CHF (congestive heart failure) Qualifiers: Heart failure chronicity: acute on chronic Summary: She is admitted for acute on chronic respiratory failure with hypoxia. This was initially felt to be secondary to her COVID-19 infection but it appears more likely due to her heart failure. She has been diuresed and is back to her baseline oxygen requirements. She still has significant edema and attempting to diurese her as her blood pressure tolerates. - Encounter Subjective/Patient's Story: The patient resides at [facility] in [place] for long-term care. She is morbidly obese and is predominantly bedbound. She will get around with a Roxy lift and a wheelchair. Objective/Medical Story: Her daughter tells me that she has had progressive lower extremity edema over the past few months. The patient was diagnosed with COVID-19 approximately 10 days ago. She was transferred here to the hospital due to increasing oxygen requirements there. Since she has been hospitalized, she is back to her baseline 2 L of oxygen. It appears she is in heart failure and she is being diuresed. Patient states that this is the best she has felt in many weeks. Her daughter also states that this is the best she has heard her mom speak in quite a few months. Goals of Care: She states that in the past she has made it quite clear that she wants everything done including CPR. She stated after discussion with her nurse yesterday, she is reconsidering this but has not made a decision yet. She states that she is still figuring out how she will share her belongings with her children and that is her priority right now. Plan: We made a full code for the time being given she cannot commit to being a DNR at this time. She will consider it and will let us know if that is how she would like to proceed. Additional Discussion: I discussed extensively with the patient what entails of CPR including broken ribs, ICU admission, and being placed on a ventilator. I also informed her that her prognosis would likely be quite poor given her advanced age and multiple comorbidities. I also discussed the concern for a poor neurologic outcome.I did also speak with her daughter, Raquel, with the patient's permission. Raquel also confirmed that the patient in the past has made it quite clear that she wanted to be a full code. She feels that given her current medical condition, a DNR would likely be more appropriate but she will leave that decision to her mother. Code Status: Attempt Resuscitation Time spent on advance care plannin
--- NOTE | 2020-07-24 16:35 | PROVIDER PROGRESS NOTE ---
Subjective - Prog Note Date Prog Note Date: 07/24/20 - Subjective Subjective: She reports feeling quite well. She states the best she has felt in weeks. Denies any dyspnea or chest pain. She states her lower extremities are always edematous. Does not feel dizzy or lightheaded. Current Medications - Current Medications Current Medications: Active Medications Acetaminophen (Acetaminophen 325 Mg Tablet) 650 mg PO Q4HR PRN PRN Reason: Pain 1 to 4 Hydrocodone Bitart/Acetaminophen (Hydrocod/Acetam 5/325 Mg Tablet) 1 tab PO Q4HR PRN PRN Reason: PAIN Last Admin: 07/24/20 09:01 Dose: 1 tab Documented by: Allopurinol (Allopurinol 100 Mg Tablet) 100 mg PO DAILY [facility] Last Admin: 07/24/20 09:01 Dose: 100 mg Documented by: Calcium Carbonate/Glycine (Calcium Carbonate Chew 500 Mg Tablet) 500 mg PO BID PRN PRN Reason: Heartburn Last Admin: 07/23/20 16:46 Dose: 500 mg Documented by: Enoxaparin Sodium (Enoxaparin 40 Mg/0.4 Ml Syringe) 40 mg SUBQ HS [facility] Last Admin: 07/22/20 23:46 Dose: 40 mg Documented by: Furosemide (Furosemide 40 Mg/4 Ml Vial) 40 mg IVP DAILY [facility] Last Admin: 07/24/20 10:28 Dose: 40 mg Documented by: Gabapentin (Gabapentin 100 Mg Capsule) 200 mg PO TID [facility] Last Admin: 07/24/20 14:00 Dose: Not Given Documented by: Metoprolol Succinate (Metoprolol Succinate 25 Mg Tablet) 25 mg PO BID [facility] Last Admin: 07/24/20 12:08 Dose: Not Given Documented by: Mineral Oil (Min Oil/Dimethicon/Coconut Oil 92 Gm Tube) 1 applic TOP PRN PRN PRN Reason: Skin Care Last Admin: 07/24/20 09:23 Dose: 1 applic Documented by: Multivitamins (Multivitamin Tablet) 1 tab PO DAILYWM [facility] Last Admin: 07/24/20 08:10 Dose: 1 tab Documented by: Nystatin (Nystatin Powder 15 Gm) 1 applic TOP BID [facility] Last Admin: 07/24/20 09:23 Dose: 1 applic Documented by: Ondansetron HCl (Ondansetron Odt 4 Mg Tablet) 4 mg TL Q6HR PRN PRN Reason: Nausea / Vomiting Ondansetron HCl (Ondansetron 4 Mg/2 Ml Vial) 4 mg IVP Q6HR PRN PRN Reason: Nausea / Vomiting Polyethylene Glycol (Polyethylene Glycol 3350 17 Gm Packet) 17 gm PO DAILY [facility] Last Admin: 07/24/20 08:09 Dose: 17 gm Documented by: Senna (Senna 8.6 Mg Tablet) 8.6 mg PO DAILY PRN PRN Reason: Constipation Last Admin: 07/24/20 08:10 Dose: 8.6 mg Documented by: Sodium Chloride (Sodium Chloride Flush 0.9% 10 Ml Syringe) 10 ml IVP 0100,0900,1700 [facility] Last Admin: 07/24/20 16:14 Dose: 60 ml Documented by: Sodium Chloride (Sodium Chloride Flush 0.9% 10 Ml Syringe) 10 ml IVP PRN PRN PRN Reason: NEEDED PER PROVIDER ORDERS Last Admin: 07/23/20 04:15 Dose: 60 ml Documented by: Calcium Carbonate [Calcium] 1,000 mg PO Q2H PRN 06/08/16 Hydrocodone/Acetaminophen [Hydrocodon-Acetaminophn 10-325] 1 tab PO Q6H PRN 06/09/16 Multivitamin [Multiple Vitamins] 1 each PO DAILY 06/09/16 Senna [Senokot] 8.6 mg PO DAILY PRN 06/09/16 polyethylene glycoL 3350 [Miralax] 17 gm PO DAILY 06/09/16 Gabapentin [Neurontin] 200 mg PO TID 07/22/20 Metoprolol Succinate [Toprol Xl] 25 mg PO BID 07/22/20 Potassium Chloride [K-Dur] 20 meq PO BIDWM 07/22/20 Torsemide 80 mg PO DAILY 07/22/20 allopurinoL [Zyloprim] 100 mg PO DAILY 07/22/20 Ascorbic Acid 500 mg PO DAILY 07/23/20 Bisacodyl Supp [Dulcolax Supp] 10 mg [place] Q24H PRN 07/23/20 Diclofenac Sodium [Voltaren Arthritis Pain] 2 gm TP Q6H PRN 07/23/20 Ipratropium/Albuterol [Combivent Respimat] 1 puffs IH Q6H PRN 07/23/20 Lactobacillus Rhamnosus GG [Culturelle] 1 cap PO DAILY 07/23/20 Loperamide [Imodium] 2 mg PO Q6H PRN 07/23/20 Loteprednol Etabonate 1 drops EACHEYE BID 07/23/20 Magnesium Hydroxide [Milk of Magnesia] 30 ml PO Q24H PRN 07/23/20 Melatonin 3 mg PO HS 07/23/20 Mineral Oil [Mineral Oil Enema] 1 unit RC Q24H PRN 07/23/20 Nitroglycerin [Nitrostat] 0.4 mg SL Q5M PRN 07/23/20 Ondansetron HCl [Zofran] 4 mg PO Q8H PRN 07/23/20 Prednisolone Acetate/Pf [Prednisolone Acet 1% Eye Drop] 1 drops EACHEYE BID 1 09/23/19 Propylene Glycol/Peg 400/Pf [Systane 0.3-0.4% Eye Drops] 1 each EACHEYE Q4H PRN 07/23/20 Simethicone [Mylicon] 160 mg PO Q6H PRN 07/23/20 Sodium Chloride [Saline Nasal [place]] 1 sprays BIBI Q4HR PRN 07/23/20 Trolamine Salicylate [Analgesic] 1 applic TP Q6H PRN 07/23/20 Vitamin B Complex 1 each PO DAILY 07/23/20 hydrOXYzine HCL [Hydroxyzine HCl] 50 mg PO Q6H PRN 07/23/20 Objective - Vital Signs/Intake & Output Reviewed Vital Signs: Yes Vital Signs: Vital Signs x48h Temp Pulse Resp BP Pulse Ox 07/24/20 14:00 83 14 98/57 L 2 L 07/24/20 12:06 36.2 C L 83 17 86/51 L 93 Intake & Output: Intake & Output 07/21/20 07/22/20 07/23/20 07/24/20 23:59 23:59 23:59 23:59 Intake Total 490 2865 650 Output Total 1425 770 Balance 490 1440 -120 - Objective General Appearance: positive: No acute distress, Alert Eyes Bilateral: positive: Normal inspection, Conjunctivae nml ENT: positive: ENT inspection nml, Other (Nasal cannula in place.) Neck: positive: Other (Ecchymosis noted over the lateral aspect of the neck on the right.) Respiratory: positive: No respiratory distress, Other (Breath sounds are diminished bilaterally.) Cardiovascular: positive: No murmur, Irregularly irregular. negative: Tachycardia, Bradycardia Abdomen: positive: Non-tender, No distention. negative: Tenderness Skin: positive: Warm, Dry, Other (Dressing is in place over the dorsum of her right foot.) Extremities: positive: Pedal edema (+3 pitting edema in her bilateral lower extremities.) Neurologic/Psychiatric: negative: Disoriented to person, Disoriented to place - Lab Results Fish Bones: 07/24/20 04:35 07/24/20 04:35 Other Labs: Lab Results x24hrs 07/24/20 07/24/20 07/24/20 Range/Units 04:35 04:35 04:35 WBC (4.8-10.8) x10^3/uL RBC (4.20-5.40) 10^6/uL Hgb (12.0-16.0) g/dL Hct (37.0-47.0) % MCV (81.0-99.0) fL MCH (27.0-31.0) pg MCHC (32.0-36.0) g/dL RDW (12.0-15.0) % Plt Count (130-450) 10^3/uL MPV (7.9-10.8) fL Neut # (Auto) (1.5-6.6) 10^3/uL Lymph # (Auto) (1.5-3.5) 10^3/uL [place] # (Auto) (0.0-1.0) 10^3/uL Eos # (Auto) (0.0-0.7) 10^3/uL Baso # (Auto) (0.0-0.1) 10^3/uL Absolute Nucleated RBC x10^3/uL Nucleated RBC % /100WBC Sodium 134 L (135-145) mmol/L Potassium 3.9 (3.5-5.0) mmol/L Chloride 89 L (101-111) mmol/L Carbon Dioxide 36 H (21-32) mmol/L Anion Gap 9.0 (6-13) BUN 44 H (6-20) mg/dL Creatinine 1.0 (0.4-1.0) mg/dL Estimated GFR (MDRD) 53 L (>89) Glucose 134 H (70-100) mg/dL Calcium 7.8 L (8.5-10.3) mg/dL Phosphorus 3.8 (2.5-4.6) mg/dL Magnesium 2.1 (1.7-2.8) mg/dL B-Natriuretic Peptide 1056 H (5-100) pg/mL Albumin 1.9 L (3.2-5.5) g/dL 07/24/20 Range/Units 04:35 WBC 3.8 L (4.8-10.8) x10^3/uL RBC 2.88 L (4.20-5.40) 10^6/uL Hgb 9.0 L (12.0-16.0) g/dL Hct 29.0 L (37.0-47.0) % MCV 100.7 H (81.0-99.0) fL MCH 31.3 H (27.0-31.0) pg MCHC 31.0 L (32.0-36.0) g/dL RDW 20.1 H (12.0-15.0) % Plt Count 192 (130-450) 10^3/uL MPV 10.7 (7.9-10.8) fL Neut # (Auto) 2.6 (1.5-6.6) 10^3/uL Lymph # (Auto) 0.7 L (1.5-3.5) 10^3/uL [place] # (Auto) 0.4 (0.0-1.0) 10^3/uL Eos # (Auto) 0.0 (0.0-0.7) 10^3/uL Baso # (Auto) 0.0 (0.0-0.1) 10^3/uL Absolute Nucleated RBC 0.00 x10^3/uL Nucleated RBC % 0.0 /100WBC Sodium (135-145) mmol/L Potassium (3.5-5.0) mmol/L Chloride (101-111) mmol/L Carbon Dioxide (21-32) mmol/L Anion Gap (6-13) BUN (6-20) mg/dL Creatinine (0.4-1.0) mg/dL Estimated GFR (MDRD) (>89) Glucose (70-100) mg/dL Calcium (8.5-10.3) mg/dL Phosphorus (2.5-4.6) mg/dL Magnesium (1.7-2.8) mg/dL B-Natriuretic Peptide (5-100) pg/mL Albumin (3.2-5.5) g/dL ABX Reporting Has patient been on IV antibiotics over the past 48 hours?: No Assessment/Plan - Problem List (1) CHF (congestive heart failure) Impression: I suspect this is likely the cause of her dyspnea that was present on admission. Her BNP has increased slightly since admission. She still has significant lower extremity edema. Blood pressure has been soft which has limited diuresis. She is on her baseline 2 L of oxygen. We will continue with Lasix IV 40 mg daily. We will recheck a BNP in the morning. We will continue to diurese her until her BNP is decreasing I suspect she will always have significant lower extremity edema. We will then transition her to oral diuretics. Continue with daily weights. Qualifiers: Heart failure chronicity: acute on chronic (2) COVID-19 Impression: She has positive for COVID-19 and she is about 10 days from her initial diagnosis. Her imaging is more consistent with pulmonary edema. She is on her baseline oxygen requirements and so we have discontinued Decadron and remdesivir. Continue with contact precautions. (3) Hypotension Impression: She has been hypotensive with systolic in the 90s. She has shown no evidence of hypoperfusion. She is mentating well and her renal function has been stable. We are checking her blood pressure via a cuff at her forearm so I am not sure how accurate this is. We will continue to diurese her as tolerated. (4) Chronic respiratory failure with hypoxia Impression: She is back to her baseline oxygen requirements. We will continue with 2 L of oxygen via nasal cannula. (5) Atrial fibrillation Impression: She is rate controlled. We are continuing her home metoprolol. Qualifiers: Atrial fibrillation type: permanent Qualified Code(s): I48.21 - Permanent atrial fibrillation (6) Elevated troponin Impression: This was felt to be demand ischemia given it was only a mild elevation in her EKG did not suggest ischemia. We will continue to monitor her on telemetry. (7) Fibromyalgia Impression: Stable. We are continuing her home gabapentin. (8) Venous stasis ulcers of both lower extremities Impression: Stable. We will continue to diurese her as tolerated. Continue with dressing changes daily. We will continue to keep her legs elevated. (9) Morbid obesity Impression: Stable. She is bedbound at baseline.
[2020-07-24] MEDS: ENOXAPARIN 40 MG/0.4 ML SYRINGE SUBQ SCH (20:54)
[2020-07-24] MEDS: SODIUM CHLORIDE FLUSH 0.9% 10 ML SYRINGE IVP PRN (20:56)
[2020-07-25] MEDS: SODIUM CHLORIDE FLUSH 0.9% 10 ML SYRINGE IVP PRN (04:23)
[2020-07-25] MEDS: SODIUM CHLORIDE FLUSH 0.9% 10 ML SYRINGE IVP SCH ×4 (04:23→21:03)
[2020-07-25] MEDS: HYDROcod/ACETAM 5/325 MG TABLET PO PRN ×3 (04:24→21:02)
[2020-07-25] MEDS: MIN OIL/DIMETHICON/COCONUT OIL 92 GM TUBE TOP PRN ×2 (04:24→08:52)
[2020-07-25 04:40] LABS: EOSINOPHILS % (AUTO) 0.3 %; HGB - HEMOGLOBIN 9.6 g/dL (12.0-16.0); LYMPHOCYTES # (AUTO) 1.2 10^3/uL (1.5-3.5); MEAN CORPUSCULAR HGB CONC 30.2 g/dL (32.0-36.0); MEAN CORPUSCULAR VOLUME 102.6 fL (81.0-99.0); MEAN PLATELET VOLUME 11.3 fL (7.9-10.8); MONOCYTES # (AUTO) 0.4 10^3/uL (0.0-1.0); MONOCYTES % (AUTO) 6.9 %; NEUTROPHILS # (AUTO) 4.2 10^3/uL (1.5-6.6); NEUTROPHILS % (AUTO) 72.6 %; PLT - PLATELET COUNT 202 10^3/uL (130-450); WHITE BLOOD COUNT 5.8 x10^3/uL (4.8-10.8)
[2020-07-25 04:50] LABS: MAGNESIUM 2.1 mg/dL (1.7-2.8); PHOSPHORUS 3.2 mg/dL (2.5-4.6)
[2020-07-25] MEDS: GABAPENTIN 100 MG CAPSULE PO SCH ×3 (06:06→22:00)
[2020-07-25] MEDS: ACETAMINOPHEN 325 MG TABLET PO PRN (06:20)
[2020-07-25] MEDS: polyethylene glycoL 3350 17 GM PACKET PO SCH (08:43)
[2020-07-25] MEDS: SENNA 8.6 MG TABLET PO PRN (08:48)
[2020-07-25] MEDS: allopurinoL 100 MG TABLET PO SCH (08:49)
[2020-07-25] MEDS: FUROSEMIDE 40 MG/4 ML VIAL IVP SCH (08:51)
[2020-07-25] MEDS: MULTIVITAMIN TABLET PO SCH (08:51)
[2020-07-25] MEDS: NYSTATIN POWDER 15 GM TOP SCH ×2 (08:51→21:04)
[2020-07-25] MEDS: METOPROLOL SUCCINATE 25 MG TABLET PO SCH ×2 (08:51→21:04)
--- NOTE | 2020-07-25 14:58 | PROVIDER PROGRESS NOTE ---
Subjective - Prog Note Date Prog Note Date: 07/25/20 - Subjective Subjective: She continues to feel well. Denies any dyspnea. She once again states this is the best she has felt in quite some time. Current Medications - Current Medications Current Medications: Active Medications Acetaminophen (Acetaminophen 325 Mg Tablet) 650 mg PO Q4HR PRN PRN Reason: Pain 1 to 4 Last Admin: 07/25/20 06:20 Dose: 650 mg Documented by: Hydrocodone Bitart/Acetaminophen (Hydrocod/Acetam 5/325 Mg Tablet) 1 tab PO Q4HR PRN PRN Reason: PAIN Last Admin: 07/25/20 08:49 Dose: 1 tab Documented by: Allopurinol (Allopurinol 100 Mg Tablet) 100 mg PO DAILY [facility] Last Admin: 07/25/20 08:49 Dose: 100 mg Documented by: Calcium Carbonate/Glycine (Calcium Carbonate Chew 500 Mg Tablet) 500 mg PO BID PRN PRN Reason: Heartburn Last Admin: 07/23/20 16:46 Dose: 500 mg Documented by: Enoxaparin Sodium (Enoxaparin 40 Mg/0.4 Ml Syringe) 40 mg SUBQ BID [facility] Gabapentin (Gabapentin 100 Mg Capsule) 200 mg PO TID [facility] Last Admin: 07/25/20 14:14 Dose: 200 mg Documented by: Metoprolol Succinate (Metoprolol Succinate 25 Mg Tablet) 25 mg PO BID [facility] Last Admin: 07/25/20 08:51 Dose: 25 mg Documented by: Mineral Oil (Min Oil/Dimethicon/Coconut Oil 92 Gm Tube) 1 applic TOP PRN PRN PRN Reason: Skin Care Last Admin: 07/25/20 08:52 Dose: 1 applic Documented by: Multivitamins (Multivitamin Tablet) 1 tab PO DAILYWM [facility] Last Admin: 07/25/20 08:51 Dose: 1 tab Documented by: Nystatin (Nystatin Powder 15 Gm) 1 applic TOP BID [facility] Last Admin: 07/25/20 08:51 Dose: 1 applic Documented by: Ondansetron HCl (Ondansetron Odt 4 Mg Tablet) 4 mg TL Q6HR PRN PRN Reason: Nausea / Vomiting Ondansetron HCl (Ondansetron 4 Mg/2 Ml Vial) 4 mg IVP Q6HR PRN PRN Reason: Nausea / Vomiting Polyethylene Glycol (Polyethylene Glycol 3350 17 Gm Packet) 17 gm PO DAILY [facility] Last Admin: 07/25/20 08:43 Dose: 17 gm Documented by: Senna (Senna 8.6 Mg Tablet) 8.6 mg PO DAILY PRN PRN Reason: Constipation Last Admin: 07/25/20 08:48 Dose: 8.6 mg Documented by: Sodium Chloride (Sodium Chloride Flush 0.9% 10 Ml Syringe) 10 ml IVP 0100,0900,1700 [facility] Last Admin: 07/25/20 09:19 Dose: 10 ml Documented by: Sodium Chloride (Sodium Chloride Flush 0.9% 10 Ml Syringe) 10 ml IVP PRN PRN PRN Reason: NEEDED PER PROVIDER ORDERS Last Admin: 07/25/20 04:23 Dose: 30 ml Documented by: Torsemide (Torsemide 20 Mg Tablet) 80 mg PO DAILY [facility] RX: Calcium Carbonate [Calcium] 1,000 mg PO Q2H PRN 06/08/16 Hydrocodone/Acetaminophen [Hydrocodon-Acetaminophn 10-325] 1 tab PO Q6H PRN 06/09/16 Multivitamin [Multiple Vitamins] 1 each PO DAILY 06/09/16 Senna [Senokot] 8.6 mg PO DAILY PRN 06/09/16 polyethylene glycoL 3350 [Miralax] 17 gm PO DAILY 06/09/16 Metoprolol Succinate [Toprol Xl] 25 mg PO BID 07/22/20 RX: Gabapentin [Neurontin] 200 mg PO TID 07/22/20 RX: Potassium Chloride [K-Dur] 20 meq PO BIDWM 07/22/20 RX: Torsemide 80 mg PO DAILY 07/22/20 RX: allopurinoL [Zyloprim] 100 mg PO DAILY 07/22/20 Bisacodyl Supp [Dulcolax Supp] 10 mg [place] Q24H PRN 07/23/20 Diclofenac Sodium [Voltaren Arthritis Pain] 2 gm TP Q6H PRN 07/23/20 Ipratropium/Albuterol [Combivent Respimat] 1 puffs IH Q6H PRN 07/23/20 Lactobacillus Rhamnosus GG [Culturelle] 1 cap PO DAILY 07/23/20 Loperamide [Imodium] 2 mg PO Q6H PRN 07/23/20 Magnesium Hydroxide [Milk of Magnesia] 30 ml PO Q24H PRN 07/23/20 Mineral Oil [Mineral Oil Enema] 1 unit RC Q24H PRN 07/23/20 Nitroglycerin [Nitrostat] 0.4 mg SL Q5M PRN 07/23/20 Ondansetron HCl [Zofran] 4 mg PO Q8H PRN 07/23/20 Prednisolone Acetate/Pf [Prednisolone Acet 1% Eye Drop] 1 drops EACHEYE BID 07/23/20 Propylene Glycol/Peg 400/Pf [Systane 0.3-0.4% Eye Drops] 1 each EACHEYE Q4H PRN 07/23/20 RX: Ascorbic Acid 500 mg PO DAILY 07/23/20 RX: Loteprednol Etabonate 1 drops EACHEYE BID 07/23/20 RX: Melatonin 3 mg PO HS 07/23/20 RX: Vitamin B Complex 1 each PO DAILY 07/23/20 Simethicone [Mylicon] 160 mg PO Q6H PRN 07/23/20 Sodium Chloride [Saline Nasal [place]] 1 sprays BIBI Q4HR PRN 07/23/20 Trolamine Salicylate [Analgesic] 1 applic TP Q6H PRN 07/23/20 hydrOXYzine HCL [Hydroxyzine HCl] 50 mg PO Q6H PRN 07/23/20 Objective - Vital Signs/Intake & Output Reviewed Vital Signs: Yes Vital Signs: Vital Signs x48h Temp Pulse Resp BP Pulse Ox 07/25/20 12:00 36.3 C L 85 18 114/69 95 07/25/20 08:56 88 15 102/72 97 07/25/20 08:00 36.5 C 105 H 18 134/118 H 94 Intake & Output: Intake & Output 07/22/20 07/23/20 07/24/20 07/25/20 23:59 23:59 23:59 23:59 Intake Total 490 2865 1150 630 Output Total 1425 2070 1050 Balance 490 6796 -928 -420 - Objective General Appearance: positive: No acute distress, Alert ENT: positive: ENT inspection nml, Other (Nasal cannula in place.) Neck: positive: Other (Ecchymosis over right side of neck.) Respiratory: positive: No respiratory distress Cardiovascular: positive: Irregularly irregular. negative: Tachycardia, Bradycardia Extremities: positive: Pedal edema (+3 pitting edema in bilateral lower extremities.), Other (Dressing in place over dorsum of right foot.) Neurologic/Psychiatric: positive: Disoriented to person, Disoriented to place - Lab Results Fish Bones: 07/25/20 04:15 07/25/20 04:15 Other Labs: Lab Results x24hrs 07/25/20 07/25/20 07/25/20 Range/Units 04:15 04:15 04:15 WBC 5.8 (4.8-10.8) x10^3/uL RBC 3.10 L (4.20-5.40) 10^6/uL Hgb 9.6 L (12.0-16.0) g/dL Hct 31.8 L (37.0-47.0) % MCV 102.6 H (81.0-99.0) fL MCH 31.0 (27.0-31.0) pg MCHC 30.2 L (32.0-36.0) g/dL RDW 20.0 H (12.0-15.0) % Plt Count 202 (130-450) 10^3/uL MPV 11.3 H (7.9-10.8) fL Neut # (Auto) 4.2 (1.5-6.6) 10^3/uL Lymph # (Auto) 1.2 L (1.5-3.5) 10^3/uL [place] # (Auto) 0.4 (0.0-1.0) 10^3/uL Eos # (Auto) 0.0 (0.0-0.7) 10^3/uL Baso # (Auto) 0.0 (0.0-0.1) 10^3/uL Absolute Nucleated RBC 0.00 x10^3/uL Nucleated RBC % 0.0 /100WBC Sodium 135 (135-145) mmol/L Potassium 3.8 (3.5-5.0) mmol/L Chloride 91 L (101-111) mmol/L Carbon Dioxide 36 H (21-32) mmol/L Anion Gap 8.0 (6-13) BUN 43 H (6-20) mg/dL Creatinine 1.0 (0.4-1.0) mg/dL Estimated GFR (MDRD) 53 L (>89) Glucose 111 H (70-100) mg/dL Calcium 8.0 L (8.5-10.3) mg/dL Phosphorus 3.2 (2.5-4.6) mg/dL Magnesium 2.1 (1.7-2.8) mg/dL B-Natriuretic Peptide 774 H (5-100) pg/mL ABX Reporting Has patient been on IV antibiotics over the past 48 hours?: No Assessment/Plan - Problem List (1) CHF (congestive heart failure) Impression: Her respiratory status has improved and she remains on 2 L of oxygen at baseline. Her BNP is trending down. Although she still has significant edema, I believe she always be edematous given she is bedbound at baseline. We will discontinue IV diuresis and switch her back to oral torsemide. Obtain echocardiogram tomorrow. If her blood pressure and respiratory status are stable, we will discharge her back to [facility] tomorrow. Qualifiers: Heart failure chronicity: acute on chronic (2) COVID-19 Impression: Today is approximately day 11 of her infection. She is not on remdesivir or Decadron. Her initial hypoxia is likely due to heart failure rather than Covid. Continue infection precautions/ (3) Hypotension Impression: She is no longer hypotensive and her blood pressure has been stable with systolic in the 110s to 120s. She shows no evidence of hypoperfusion. We will monitor her today and if her blood pressure remains stable we will look to discharge her tomorrow (4) Chronic respiratory failure with hypoxia Impression: She is on 2 L of oxygen at baseline likely due to her heart failure. She is saturating well on this. Continue 2 L of oxygen. (5) Elevated troponin Impression: This was demand ischemia. Her troponins are flat. We will obtain an echocardiogram tomorrow. (6) Fibromyalgia Impression: Stable. Continue gabapentin and Tylenol. (7) Venous stasis ulcers of both lower extremities Impression: This is likely secondary to her lower extremity edema. Continue with dressing changes. (8) Morbid obesity Impression: She is bedbound at baseline.
[2020-07-25] MEDS: ENOXAPARIN 40 MG/0.4 ML SYRINGE SUBQ SCH (21:03)
[2020-07-26] MEDS: HYDROcod/ACETAM 5/325 MG TABLET PO PRN ×2 (02:10→21:29)
[2020-07-26] MEDS: GABAPENTIN 100 MG CAPSULE PO SCH ×3 (05:45→21:30)
[2020-07-26 05:57] LABS: BASOPHILS % (AUTO) 0.1 %; EOSINOPHILS # (AUTO) 0.2 10^3/uL (0.0-0.7); EOSINOPHILS % (AUTO) 2.2 %; HGB - HEMOGLOBIN 10.1 g/dL (12.0-16.0); LYMPHOCYTES % (AUTO) 28.1 %; MEAN CORPUSCULAR HEMOGLOBIN 31.7 pg (27.0-31.0); MEAN CORPUSCULAR HGB CONC 30.9 g/dL (32.0-36.0); MEAN CORPUSCULAR VOLUME 102.5 fL (81.0-99.0); MONOCYTES # (AUTO) 0.5 10^3/uL (0.0-1.0); MONOCYTES % (AUTO) 7.5 %; NEUTROPHILS # (AUTO) 4.3 10^3/uL (1.5-6.6); NEUTROPHILS % (AUTO) 61.4 %; PLT - PLATELET COUNT 191 10^3/uL (130-450); RED BLOOD COUNT 3.19 10^6/uL (4.20-5.40); RED CELL DISTRIBUTION WIDTH 19.9 % (12.0-15.0)
[2020-07-26 06:06] LABS: CALCIUM 7.9 mg/dL (8.5-10.3); MAGNESIUM 2.1 mg/dL (1.7-2.8); PHOSPHORUS 2.8 mg/dL (2.5-4.6)
[2020-07-26] MEDS: allopurinoL 100 MG TABLET PO SCH (08:06)
[2020-07-26] MEDS: MULTIVITAMIN TABLET PO SCH (08:07)
[2020-07-26] MEDS: polyethylene glycoL 3350 17 GM PACKET PO SCH (08:07)
[2020-07-26] MEDS: ENOXAPARIN 40 MG/0.4 ML SYRINGE SUBQ SCH ×2 (08:07→21:34)
[2020-07-26] MEDS: SODIUM CHLORIDE FLUSH 0.9% 10 ML SYRINGE IVP SCH ×3 (08:08→21:31)
[2020-07-26] MEDS: NYSTATIN POWDER 15 GM TOP SCH ×2 (08:08→21:30)
[2020-07-26] MEDS: METOPROLOL SUCCINATE 25 MG TABLET PO SCH ×2 (08:12→21:30)
[2020-07-26] MEDS ORDERED: TORSEMIDE 20 MG TABLET PO SCH (09:00)
--- NOTE | 2020-07-26 11:52 | Discharge Plan ---
Discharge Plan for SNF / [facility] - Discharge Plan And Transition Orders Problem Reviewed?: Yes Disposition: 03 SNF DC/Xfer Condition: Stable Allergies and Adverse Reactions: Allergies Allergy/AdvReac Type Severity Reaction Status Date / Time Latex, Natural Rubber Allergy Unknown Verified 07/22/20 17:05 mupirocin Allergy Rash Verified 07/22/20 17:05 silver Allergy Rash Verified 07/22/20 17:05 methotrexate AdvReac Headache Verified 07/22/20 17:05 Health Concerns: She was admitted to the intensive care unit for acute on chronic hypoxic respiratory failure and hypotension. The concern initially was for worsening COVID-19 infection as well as acute on chronic congestive heart failure. She was given remdesivir and Decadron in the emergency department. She did have an elevated D-dimer and a CT angiogram was obtained which was negative for pulmonary embolism although this was not the greatest study. The findings were more consistent with CHF and pulmonary edema although viral pneumonia cannot be ruled out. Shortly after arrival to the intensive care unit, she was back to her baseline 2 L of oxygen. She was given 40 mg of Lasix IV with improvement in her dyspnea. Her blood pressures were soft over next 24 to 48 hours with systolics in the 90s to low 100s and at times dropping to the 80s. He did not show any evidence of hypoperfusion and her renal function remained stable as well as her mental status. It was felt that some of these blood pressure readings were likely not accurate given we were checking the blood pressure at her wrist. She was not continued on remdesivir and Decadron given it was felt that her initial hypoxia was likely related to heart failure rather than worsening COVID-19 infection. Her imaging was also more consistent with pulmonary edema. She was diuresed with Lasix 40 mg IV into 25 July and then transition to her oral torsemide. Her BNP is trending down. She remained stable on 2 L of oxygen which is her baseline. She still does have significant lower extremity edema although I suspect this is likely related to her being bedbound and a component of venous stasis. We did obtain an echocardiogram prior to discharge which showed . On day of discharge, her blood pressures have been stable with systolics in the 100s to 110s. Her heart rate is stable in the 80s. He is saturating 96 9% on 2 L of oxygen via nasal cannula. She is not ta chypneic. - SNF / [facility] Transition Orders Admit to (Facility): [facility] Under the care of (Name): Ryan Solano Discharge Diagnosis: Acute on chronic congestive heart failure with preserved ejection fraction - improved. COVID-19 - stable. Hypotension - resolved. Chronic respiratory failure with hypoxia - stable. Elevated troponin - stable. Fibromyalgia - stable. Venous stasis of both lower extremities - stable. Morbid obesity - stable. Medicare Certification Statement: I certify that Post Hospital care home care is medically necessary on a continuing basis for any of the conditions for which she/he is receiving care during hospitalization. Notify PCP of admission and forward orders to primary provider for signature. Weight on admission and: Weekly Other Notification Orders: Call PCP immediately if patient develops dyspnea, chest pain/tightness or edema. Additional Bowel Program Orders: If no BM after 2 days, nurse may give M.O.M. 30ml PO PRN and/or ducolax Supp 1 MO and/or [place] 250mg P.O., and/or senna 1-2 tabs PO. On day 3 nurse may give repeat above order until residents constipation is resolved. Oxygen Orders: 2 L of oxygen via nasal cannula. Medication Orders: PLEASE REFER TO THE DISCHARGE MEDICATION LIST. Insulin Orders?: No
--- NOTE | 2020-07-26 13:36 | PROVIDER PROGRESS NOTE ---
Subjective - Prog Note Date Prog Note Date: 07/26/20 - Subjective Subjective: She continues to report feeling well. She denies any shortness of breath. She was able to eat lunch without difficulty. Current Medications - Current Medications Current Medications: Active Medications Acetaminophen (Acetaminophen 325 Mg Tablet) 650 mg PO Q4HR PRN PRN Reason: Pain 1 to 4 Last Admin: 07/25/20 06:20 Dose: 650 mg Documented by: Hydrocodone Bitart/Acetaminophen (Hydrocod/Acetam 5/325 Mg Tablet) 1 tab PO Q4HR PRN PRN Reason: PAIN Last Admin: 07/26/20 02:10 Dose: 1 tab Documented by: Allopurinol (Allopurinol 100 Mg Tablet) 100 mg PO DAILY [facility] Last Admin: 07/26/20 08:06 Dose: 100 mg Documented by: Calcium Carbonate/Glycine (Calcium Carbonate Chew 500 Mg Tablet) 500 mg PO BID PRN PRN Reason: Heartburn Last Admin: 07/23/20 16:46 Dose: 500 mg Documented by: Enoxaparin Sodium (Enoxaparin 40 Mg/0.4 Ml Syringe) 40 mg SUBQ BID [facility] Last Admin: 07/26/20 08:07 Dose: 40 mg Documented by: Furosemide (Furosemide 40 Mg/4 Ml Vial) 40 mg IVP DAILY [facility] Gabapentin (Gabapentin 100 Mg Capsule) 200 mg PO TID [facility] Last Admin: 07/26/20 12:11 Dose: 200 mg Documented by: Metoprolol Succinate (Metoprolol Succinate 25 Mg Tablet) 25 mg PO BID [facility] Last Admin: 07/26/20 08:12 Dose: 25 mg Documented by: Mineral Oil (Min Oil/Dimethicon/Coconut Oil 92 Gm Tube) 1 applic TOP PRN PRN PRN Reason: Skin Care Last Admin: 07/25/20 08:52 Dose: 1 applic Documented by: Multivitamins (Multivitamin Tablet) 1 tab PO DAILYWM [facility] Last Admin: 07/26/20 08:07 Dose: 1 tab Documented by: Nystatin (Nystatin Powder 15 Gm) 1 applic TOP BID [facility] Last Admin: 07/26/20 08:08 Dose: 1 applic Documented by: Ondansetron HCl (Ondansetron Odt 4 Mg Tablet) 4 mg TL Q6HR PRN PRN Reason: Nausea / Vomiting Ondansetron HCl (Ondansetron 4 Mg/2 Ml Vial) 4 mg IVP Q6HR PRN PRN Reason: Nausea / Vomiting Polyethylene Glycol (Polyethylene Glycol 3350 17 Gm Packet) 17 gm PO DAILY [facility] Last Admin: 07/26/20 08:07 Dose: 17 gm Documented by: Senna (Senna 8.6 Mg Tablet) 8.6 mg PO DAILY PRN PRN Reason: Constipation Last Admin: 07/25/20 08:48 Dose: 8.6 mg Documented by: Sodium Chloride (Sodium Chloride Flush 0.9% 10 Ml Syringe) 10 ml IVP 0100,0900,1700 [facility] Last Admin: 07/26/20 08:08 Dose: 10 ml Documented by: Sodium Chloride (Sodium Chloride Flush 0.9% 10 Ml Syringe) 10 ml IVP PRN PRN PRN Reason: NEEDED PER PROVIDER ORDERS Last Admin: 07/25/20 04:23 Dose: 30 ml Documented by: Calcium Carbonate [Calcium] 1,000 mg PO Q2H PRN 06/08/16 Hydrocodone/Acetaminophen [Hydrocodon-Acetaminophn 10-325] 1 tab PO Q6H PRN 06/09/16 Multivitamin [Multiple Vitamins] 1 each PO DAILY 06/09/16 Senna [Senokot] 8.6 mg PO DAILY PRN 06/09/16 polyethylene glycoL 3350 [Miralax] 17 gm PO DAILY 06/09/16 Gabapentin [Neurontin] 200 mg PO TID 07/22/20 Metoprolol Succinate [Toprol Xl] 25 mg PO BID 07/22/20 Potassium Chloride [K-Dur] 20 meq PO BIDWM 07/22/20 Torsemide 80 mg PO DAILY 07/22/20 allopurinoL [Zyloprim] 100 mg PO DAILY 07/22/20 Ascorbic Acid 500 mg PO DAILY 07/23/20 Bisacodyl Supp [Dulcolax Supp] 10 mg ND Q24H PRN 07/23/20 Diclofenac Sodium [Voltaren Arthritis Pain] 2 gm TP Q6H PRN 07/23/20 Ipratropium/Albuterol [Combivent Respimat] 1 puffs IH Q6H PRN 07/23/20 Lactobacillus Rhamnosus GG [Culturelle] 1 cap PO DAILY 07/23/20 Loperamide [Imodium] 2 mg PO Q6H PRN 07/23/20 Loteprednol Etabonate 1 drops EACHEYE BID 07/23/20 Magnesium Hydroxide [Milk of Magnesia] 30 ml PO Q24H PRN 07/23/20 Melatonin 3 mg PO HS 07/23/20 Mineral Oil [Mineral Oil Enema] 1 unit RC Q24H PRN 07/23/20 Nitroglycerin [Nitrostat] 0.4 mg SL Q5M PRN 07/23/20 Ondansetron HCl [Zofran] 4 mg PO Q8H PRN 07/23/20 Prednisolone Acetate/Pf [Prednisolone Acet 1% Eye Drop] 1 drops EACHEYE BID 07/23/20 Propylene Glycol/Peg 400/Pf [Systane 0.3-0.4% Eye Drops] 1 each EACHEYE Q4H PRN 07/23/20 Simethicone [Mylicon] 160 mg PO Q6H PRN 07/23/20 Sodium Chloride [Saline Nasal [place]] 1 sprays BIBI Q4HR PRN 07/23/20 Trolamine Salicylate [Analgesic] 1 applic TP Q6H PRN 07/23/20 Vitamin B Complex 1 each PO DAILY 07/23/20 hydrOXYzine HCL [Hydroxyzine HCl] 50 mg PO Q6H PRN 07/23/20 Objective - Vital Signs/Intake & Output Reviewed Vital Signs: Yes Vital Signs: Vital Signs x48h Pulse Resp BP Pulse Ox 07/26/20 13:00 85 16 96 07/26/20 12:00 87 14 122/88 H 99 07/26/20 11:00 77 15 108/66 99 07/26/20 09:00 87 15 118/84 H 90 L Intake & Output: Intake & Output 07/23/20 07/24/20 07/25/20 07/26/20 23:59 23:59 23:59 23:59 Intake Total 2865 1150 1370 Output Total 1425 2070 1440 640 Balance 1440 -920 -70 -640 - Objective General Appearance: positive: No acute distress, Alert Eyes Bilateral: positive: Normal inspection, Conjunctivae nml ENT: positive: ENT inspection nml, Other (Nasal cannula in place.) Neck: positive: Other (Ecchymosis over the right side of her neck.) Respiratory: positive: No respiratory distress, Other (Diminished bilaterally.). negative: Wheezes Cardiovascular: positive: Irregularly irregular. negative: Tachycardia, Syst olic murmur Abdomen: positive: Non-tender, No distention. negative: Tenderness Skin: positive: Warm, Dry, Other (Dressing in place over the dorsum of the right foot and anterior aspect of the left leg.) Extremities: positive: Pedal edema (+3 pitting edema in the bilateral lower extremities up to the abdomen.) Neurologic/Psychiatric: negative: Disoriented to person, Disoriented to place - Lab Results Fish Bones: 07/26/20 05:20 07/26/20 05:20 Other Labs: Lab Results x24hrs 07/26/20 07/26/20 Range/Units 05:20 05:20 WBC 7.0 (4.8-10.8) x10^3/uL RBC 3.19 L (4.20-5.40) 10^6/uL Hgb 10.1 L (12.0-16.0) g/dL Hct 32.7 L (37.0-47.0) % MCV 102.5 H (81.0-99.0) fL MCH 31.7 H (27.0-31.0) pg MCHC 30.9 L (32.0-36.0) g/dL RDW 19.9 H (12.0-15.0) % Plt Count 191 (130-450) 10^3/uL MPV 11.0 H (7.9-10.8) fL Neut # (Auto) 4.3 (1.5-6.6) 10^3/uL Lymph # (Auto) 2.0 (1.5-3.5) 10^3/uL [place] # (Auto) 0.5 (0.0-1.0) 10^3/uL Eos # (Auto) 0.2 (0.0-0.7) 10^3/uL Baso # (Auto) 0.0 (0.0-0.1) 10^3/uL Absolute Nucleated RBC 0.00 x10^3/uL Nucleated RBC % 0.0 /100WBC Sodium 133 L (135-145) mmol/L Potassium 4.0 (3.5-5.0) mmol/L Chloride 88 L (101-111) mmol/L Carbon Dioxide 37 H (21-32) mmol/L Anion Gap 8.0 (6-13) BUN 43 H (6-20) mg/dL Creatinine 1.0 (0.4-1.0) mg/dL Estimated GFR (MDRD) 53 L (>89) Glucose 88 (70-100) mg/dL Calcium 7.9 L (8.5-10.3) mg/dL Phosphorus 2.8 (2.5-4.6) mg/dL Magnesium 2.1 (1.7-2.8) mg/dL ABX Reporting Has patient been on IV antibiotics over the past 48 hours?: No Assessment/Plan - Problem List (1) CHF (congestive heart failure) Impression: Although she is not dyspneic and is on her baseline 2 L of oxygen, she is symone rly still quite hypervolemic. Echocardiogram today reveals that her IVC is still quite dilated. Given her significant edema, we will keep her hospitalized for further IV diuresis over the next few days. I spoke with Dr. Solano and he is in agreement with this plan. We will place her back on Lasix 40 mg IV daily. If her blood pressure continues to remain stable, we will increase this to twice daily. Continue with daily weights and I's and O's She will likely always have edema due to venous insufficiency and the fact that she is bedbound but I believe she still has quite a bit of fluid to be taken off. Qualifiers: Heart failure type: diastolic Heart failure chronicity: acute on chronic Qualified Code(s): I50.33 - Acute on chronic diastolic (congestive) heart failure (2) COVID-19 Impression: She was initially thought that her Covid infection was [address] Solano informed me that she is now approximately 6 days out. She is still at risk for worsening infection due to the virus. We will keep her hospitalized for further diuresis and we will monitor her closely for evidence of viral pneumonia. Continue infectious precautions. (3) Chronic respiratory failure with hypoxia Impression: She has been stable on her 2 L of oxygen. I wonder if she might not need oxygen if we can further diurese her given she is still quite hypervolemic. As you new turn over next few days, we will attempt to wean her off of oxygen. For the time being, we will continue to 2 L of oxygen. (4) Atrial fibrillation Impression: He is in atrial fibrillation and rate controlled on metoprolol. I did speak with Dr. Solano and he states that she was previously on Coumadin but this was discontinued back in mid 2019 due to a GI bleed. At that time there was no obvious source but she did have a C. difficile infection. She was discharged from [facility] on hospice and so Coumadin was not resumed. I spoke with the patient today regarding resumption of Coumadin. We discussed the risks and benefits. She would like to think about it for the time being. If she is agreeable to anticoagulation then we will start her on therapeutic Lovenox and monitor her for bleeding while she is hospitalized. Qualifiers: Atrial fibrillation type: permanent Qualified Code(s): I48.21 - Permanent atrial fibrillation (5) Elevated troponin Impression: It was felt to be demand ischemia. Her EKG did not suggest ischemia. Her echo shows no wall motion abnormalities. (6) Fibromyalgia Impression: Stable. We are continuing gabapentin and Tylenol as needed. (7) Venous stasis ulcers of both lower extremities Impression: She has bilateral lower extremity wounds due to her significant lower extremity edema. We will continue to diurese her as mentioned above. Continue with leg elevation. Continue with dressing changes. (8) Morbid obesity Impression: She is bedbound at baseline. (9) Hypotension Impression: She had one low blood pressure reading yesterday evening in the 80s systolic otherwise she has been in the 110s. Overall, her blood pressure is improved and stable.
[2020-07-26] MEDS: FUROSEMIDE 40 MG/4 ML VIAL IVP SCH (16:16)
[2020-07-27] MEDS: GABAPENTIN 100 MG CAPSULE PO SCH ×3 (05:16→21:10)
[2020-07-27] MEDS: HYDROcod/ACETAM 5/325 MG TABLET PO PRN ×3 (05:16→13:47)
[2020-07-27 05:47] LABS: BASOPHILS % (AUTO) 0.1 %; EOSINOPHILS # (AUTO) 0.2 10^3/uL (0.0-0.7); EOSINOPHILS % (AUTO) 2.9 %; HGB - HEMOGLOBIN 9.8 g/dL (12.0-16.0); LYMPHOCYTES # (AUTO) 1.8 10^3/uL (1.5-3.5); LYMPHOCYTES % (AUTO) 25.3 %; MEAN CORPUSCULAR HEMOGLOBIN 31.2 pg (27.0-31.0); MEAN CORPUSCULAR HGB CONC 30.5 g/dL (32.0-36.0); MEAN CORPUSCULAR VOLUME 102.2 fL (81.0-99.0); MEAN PLATELET VOLUME 10.7 fL (7.9-10.8); MONOCYTES # (AUTO) 0.5 10^3/uL (0.0-1.0); MONOCYTES % (AUTO) 7.6 %; NEUTROPHILS # (AUTO) 4.4 10^3/uL (1.5-6.6); NEUTROPHILS % (AUTO) 63.7 %; PLT - PLATELET COUNT 180 10^3/uL (130-450); RED BLOOD COUNT 3.14 10^6/uL (4.20-5.40); RED CELL DISTRIBUTION WIDTH 19.9 % (12.0-15.0)
[2020-07-27 06:12] LABS: CALCIUM 7.7 mg/dL (8.5-10.3); CREATININE 0.9 mg/dL (0.4-1.0); MAGNESIUM 2.1 mg/dL (1.7-2.8); PHOSPHORUS 2.7 mg/dL (2.5-4.6)
[2020-07-27] MEDS: ASPIRIN CHEW 81 MG TABLET PO SCH (08:40)
[2020-07-27] MEDS: allopurinoL 100 MG TABLET PO SCH (08:42)
[2020-07-27] MEDS: MULTIVITAMIN TABLET PO SCH (08:42)
[2020-07-27] MEDS: METOPROLOL SUCCINATE 25 MG TABLET PO SCH ×2 (08:42→20:28)
[2020-07-27] MEDS: ENOXAPARIN 40 MG/0.4 ML SYRINGE SUBQ SCH ×2 (08:43→20:28)
[2020-07-27] MEDS: FUROSEMIDE 40 MG/4 ML VIAL IVP SCH (08:43)
[2020-07-27] MEDS: SODIUM CHLORIDE FLUSH 0.9% 10 ML SYRINGE IVP SCH ×2 (08:43→18:11)
[2020-07-27] MEDS: polyethylene glycoL 3350 17 GM PACKET PO SCH (08:43)
[2020-07-27] MEDS: MIN OIL/DIMETHICON/COCONUT OIL 92 GM TUBE TOP PRN ×2 (10:00→16:18)
--- NOTE | 2020-07-27 10:20 | PROVIDER PROGRESS NOTE ---
Assessment/Plan - Problem List (1) V-tach Assessment/Plan: The patient had a several second run of wide-complex, regular, tachycardia, the rate was 100 and the patient was asymptomatic. Blood pressure was 105/72. This VT was likely related to electrolyte and trace element losses from diuresis. Continue telemetry. Check a troponin again, and check potassium and magnesium stat and replace if low. (2) Acute on chronic diastolic heart failure Assessment/Plan: Her respiratory status has improved but she remains on 2 L of oxygen, which was her baseline. Her BNP is trending down, although she still has significant edema/anasarca. Echocardiogram Done yesterday shows LVEF 55%, diastolic dysfunction is present. There is also cor pulmonale found. She still needs considerable diuresis of her anasarca. Dr. Marin, the Hospitalist yesterday, spoke to Dr. Solano at [facility], who knows this patient, and it was decided she should have several more days of IV diuresis. This may also help decrease or eliminate the need for supplemental oxygen. Will add a Low Salt restriction to her diet. Follow BMP, I's and O's and daily weights. (3) Cor pulmonale Assessment/Plan: The Echo showed LVEF of 55% but a very dilated right ventricle with severely depressed RV function. Also moderate to severe pulmonary hypertension with PA pressure 62 mmHg. Continue with gentle iv diuresis daily, not twice daily, which may be too rapid and cause hypotension (again). (4) COVID-19 Assessment/Plan: Today is approximately day 8 of her infection. She is not on remdesivir or Decadron any longer. Her initial hypoxia is likely due to heart failure rather than Covid. Continue infection precautions (5) Chronic respiratory failure with hypoxia Assessment/Plan: She is on 2 L of oxygen at baseline likely due to her heart failure. She is saturating well on this. Continue 2 L of oxygen. (6) Venous stasis ulcers of both lower extremities Assessment/Plan: The ulcers are likely secondary to her Cor Pulmonale and chronic venous stasis of lower extremity edema. Continue with dressing changes. Will request a Gen Surgery consult to consider debridement, since the wounds are draining. (7) Chronic atrial fibrillation Assessment/Plan: Her heart rate is under control on present Metoprolol management. Coumadin was discontinued in mid 2019 because of a GI bleed. When the hospitalist yesterday discussed possibly resuming anticoagulation, the patient said she wanted to think about it. Baby aspirin daily has been added today for stroke prophylaxis. (8) Fibromyalgia Assessment/Plan: She c/o pain from her low back and the wound areas. Continue Gabapentin and Tylenol. Will add codeine. (9) Anemia Assessment/Plan: Her hemoglobin is chronically 9-10. We will check serum B12, folate levels and Iron stores and replace if low. (10) Elevated troponin Assessment/Plan: This was likely correlating with CHF. Her troponins were flat. The [place] rdiogram showed no LV wall motion abnormalities. (11) Morbid obesity Assessment/Plan: She is bedbound at baseline. - Current Meds Current Meds: Current Medications Generic Name Dose Route Start Last Admin Trade Name Freq PRN Reason Stop Dose Admin Acetaminophen 650 mg 07/22/20 17:37 07/25/20 06:20 Acetaminophen 325 Mg Tablet PO 650 mg Q4HR PRN Administration Pain 1 to 4 Hydrocodone Bitart/Acetaminophen 1 tab 07/22/20 23:24 07/27/20 09:08 Hydrocod/Acetam 5/325 Mg Tablet PO 1 tab Q4HR PRN Administration PAIN Allopurinol 100 mg 07/24/20 09:00 07/27/20 08:42 Allopurinol 100 Mg Tablet PO 100 mg DAILY [facility] Administration Aspirin 81 mg 07/27/20 09:00 07/27/20 08:40 Aspirin Chew 81 Mg Tablet PO 81 mg DAILY [facility] Administration Calcium Carbonate/Glycine 500 mg 07/23/20 16:28 07/23/20 16:46 Calcium Carbonate Chew 500 Mg Tablet PO 500 mg BID PRN Administration Heartburn Enoxaparin Sodium 40 mg 07/25/20 21:00 07/27/20 08:43 Enoxaparin 40 Mg/0.4 Ml Syringe SUBQ 40 mg BID [facility] Administration Furosemide 40 mg 07/26/20 13:40 07/27/20 08:43 Furosemide 40 Mg/4 Ml Vial IVP 40 mg DAILY [facility] Administration Gabapentin 200 mg 07/23/20 14:00 07/27/20 05:16 Gabapentin 100 Mg Capsule PO 200 mg TID [facility] Administration Metoprolol Succinate 25 mg 07/23/20 21:00 07/27/20 08:42 Metoprolol Succinate 25 Mg Tablet PO 25 mg BID [facility] Administration Mineral Oil 1 applic 07/23/20 04:25 07/25/20 08:52 Min Oil/Dimethicon/Coconut Oil 92 Gm Tube TOP 1 applic PRN PRN Administration Skin Care Multivitamins 1 tab 07/24/20 08:00 07/27/20 08:42 Multivitamin Tablet PO 1 tab DAILYWM [facility] Administration Nystatin 1 applic 07/23/20 09:00 07/26/20 21:30 Nystatin Powder 15 Gm TOP 1 applic BID [facility] Administration Polyethylene Glycol 17 gm 07/23/20 09:00 07/27/20 08:43 Polyethylene Glycol 3350 17 Gm Packet PO 17 gm DAILY [facility] Administration Senna 8.6 mg 07/23/20 11:37 07/25/20 08:48 Senna 8.6 Mg Tablet PO 8.6 mg DAILY PRN Administration Constipation Sodium Chloride 10 ml 07/23/20 01:00 07/27/20 08:43 Sodium Chloride Flush 0.9% 10 Ml Syringe IVP 10 ml 0100,0900,1700 [facility] Administration Sodium Chloride 10 ml 07/22/20 17:37 07/25/20 04:23 Sodium Chloride Flush 0.9% 10 Ml Syringe IVP 30 ml PRN PRN Administration NEEDED PER PROVIDER ORDERS - Lab Result Fish Bone Diagrams: 07/27/20 05:25 07/27/20 11:17 - Additional Planning My Orders: My Active Orders 07/27/20 General Surgery Consult [CONS] Routine 07/27/20 Lunch DIET [Low Sodium Diet] [DIET] Subjective - Subjective Patient Reports: Back Pain, Pain (She complains of pain of both feet and around her wound sites and her shoulder) Objective Vital Signs: Vital Signs - 24 hr 07/26/20 07/26/20 07/26/20 11:00 12:00 13:00 Temperature Heart Rate [ 77 87 85 Monitoring electrodes] Respiratory 15 14 16 Rate Blood Pressure 108/66 122/88 H [Left Radial artery] Blood Pressure [Right Radial artery] O2 Saturation 99 99 96 07/26/20 07/26/20 07/27/20 17:00 20:00 00:00 Temperature 36.7 C 36.7 C Heart Rate [ 78 81 90 Monitoring electrodes] Respiratory 15 16 17 Rate Blood Pressure 115/75 112/73 95/64 [Left Radial artery] Blood Pressure [Right Radial artery] O2 Saturation 98 92 90 L 07/27/20 07/27/20 04:00 08:23 Temperature 36.6 C 36.6 C Heart Rate [ 80 72 Monitoring electrodes] Respiratory 12 15 Rate Blood Pressure 109/69 [Left Radial artery] Blood Pressure 107/68 [Right Radial artery] O2 Saturation 95 96 Oxygen O2 Source Nasal cannula Oxygen Flow Rate 5 I&O (Last 24 Hrs): Intake and Output Totals x24h 07/25/20 07/26/20 07/27/20 23:59 23:59 23:59 Intake Total 1370 890 500 Output Total 1440 3290 550 Balance -70 -2400 -50 General: Alert, Oriented x3 HEENT: Mucous membr. moist/pink Neck: Supple Neuro: Alert, Non Focal Cardiovascular: Other (Irregularly irregular, distant heart sounds, cannot auscultate for a murmur) Respiratory: No respiratory distress, Breath sounds nml Abdomen: Other (Obese with a pannus) Extremities: Other (4+ pitting edema to the level of her umbilicus. Both shins are bandaged) - Results Results: Laboratory Results WBC 7.0 x10^3/uL (4.8-10.8) 07/27/20 05:25 RBC 3.14 10^6/uL (4.20-5.40) L 07/27/20 05:25 Hgb 9.8 g/dL (12.0-16.0) L 07/27/20 05:25 Hct 32.1 % (37.0-47.0) L 07/27/20 05:25 MCV 102.2 fL (81.0-99.0) H 07/27/20 05:25 MCH 31.2 pg (27.0-31.0) H 07/27/20 05:25 MCHC 30.5 g/dL (32.0-36.0) L 07/27/20 05:25 RDW 19.9 % (12.0-15.0) H 07/27/20 05:25 Plt Count 180 10^3/uL (130-450) 07/27/20 05:25 MPV 10.7 fL (7.9-10.8) 07/27/20 05:25 Neut # (Auto) 4.4 10^3/uL (1.5-6.6) 07/27/20 05:25 Lymph # (Auto) 1.8 10^3/uL (1.5-3.5) 07/27/20 05:25 [place] # (Auto) 0.5 10^3/uL (0.0-1.0) 07/27/20 05:25 Eos # (Auto) 0.2 10^3/uL (0.0-0.7) 07/27/20 05:25 Baso # (Auto) 0.0 10^3/uL (0.0-0.1) 07/27/20 05:25 Absolute Nucleated RBC 0.00 x10^3/uL 07/27/20 05:25 Nucleated RBC % 0.0 /100WBC 07/27/20 05:25 WBC Morphology NORMAL APPEARANCE (NORMAL) 07/22/20 16:18 Platelet Estimate NORMAL (130-450,000) (NORMAL) 07/22/20 16:18 Platelet Morphology NORMAL APPEARANCE (NORMAL) 07/22/20 16:18 RBC Morph Micro Appear 3+ ANISOCYTOSIS (NORMAL) 1+ MACROCYTOSIS (NORMAL) 1+ POLYCHROMASIA (NORMAL) 07/22/20 16:18 RBC Morph Micro Appear 3+ ANISOCYTOSIS (NORMAL) 1+ MACROCYTOSIS (NORMAL) 1+ POLYCHROMASIA (NORMAL) 07/22/20 16:18 RBC Morph Micro Appear 3+ ANISOCYTOSIS (NORMAL) 1+ MACROCYTOSIS (NORMAL) 1+ POLYCHROMASIA (NORMAL) 07/22/20 16:18 ESR 45 mm/Hr (0-30) H 07/22/20 16:18 PT 15.6 secs (9.9-12.6) H 07/22/20 16:18 INR 1.4 (0.8-1.2) H 07/22/20 16:18 APTT 31.3 secs (24.9-33.3) 07/22/20 16:18 D-Dimer 427.4 ng/mL (200.0-255.0) H 07/22/20 16:18 VBG pH 7.421 (7.31-7.41) H 07/22/20 16:18 VBG pCO2 59.8 mmHg (41-51) H 07/22/20 16:18 VBG pO2 59.0 mmHg (25-47) H 07/22/20 16:18 VBG HCO3 38.0 mmol/L (23-28) H 07/22/20 16:18 VBG Total CO2 39.8 mmol/L (24-29) H 07/22/20 16:18 VBG O2 Saturation 90.0 % (60-80) H 07/22/20 16:18 VBG Base Excess 11.6 mmol/L (-2 - +2) H 07/22/20 16:18 Sodium 137 mmol/L (135-145) 07/27/20 05:25 Potassium 3.7 mmol/L (3.5-5.0) 07/27/20 05:25 Chloride 92 mmol/L (101-111) L 07/27/20 05:25 Carbon Dioxide 36 mmol/L (21-32) H 07/27/20 05:25 Anion Gap 9.0 (6-13) 07/27/20 05:25 BUN 39 mg/dL (6-20) H 07/27/20 05:25 Creatinine 0.9 mg/dL (0.4-1.0) 07/27/20 05:25 Estimated GFR (MDRD) 60 (>89) L 07/27/20 05:25 Glucose 92 mg/dL (70-100) 07/27/20 05:25 Lactic Acid 1.5 mmol/L (0.5-2.2) 07/22/20 16:18 Calcium 7.7 mg/dL (8.5-10.3) L 07/27/20 05:25 Phosphorus 2.7 mg/dL (2.5-4.6) 07/27/20 05:25 Magnesium 2.1 mg/dL (1.7-2.8) 07/27/20 05:25 Total Bilirubin 1.0 mg/dL (0.2-1.0) 07/22/20 16:18 AST 60 IU/L (10-42) H 07/22/20 16:18 ALT 18 IU/L (10-60) 07/22/20 16:18 Alkaline Phosphatase 290 IU/L (42-121) H 07/22/20 16:18 Troponin I High Sens 70.5 ng/L (2.3-14.8) H* 07/22/20 20:10 C-Reactive Protein 3.7 mg/dL (0-1.0) H 07/22/20 16:18 B-Natriuretic Peptide 774 pg/mL (5-100) H 07/25/20 04:15 Total Protein 6.1 g/dL (6.7-8.2) L 07/22/20 16:18 Albumin 1.9 g/dL (3.2-5.5) L 07/24/20 04:35 Globulin 4.0 g/dL (2.1-4.2) 07/22/20 16:18 Albumin/Globulin Ratio 0.5 (1.0-2.2) L 07/22/20 16:18 Lipase 26 U/L (22-51) 07/22/20 16:18 Nasal Screen MRSA (PCR) NEGATIVE (NEGATIVE) 07/22/20 20:55
[2020-07-27 12:07] LABS: CALCIUM 7.6 mg/dL (8.5-10.3); MAGNESIUM 1.9 mg/dL (1.7-2.8)
[2020-07-27] MEDS: NYSTATIN POWDER 15 GM TOP SCH ×2 (14:32→20:28)
--- NOTE | 2020-07-27 16:23 | CONSULTATION NOTE ---
Referring Provider Consult Date: 07/27/20 Chief Complaint - Chief Complaint Chief Complaint: admitted with chf/ shortness of breath History of Present Illness - History Obtained From Records Reviewed: yes History obtained from: patient and nurse Exam Limitations: none - History of Present Illness HPI Comment/Other: consult for leg wounds, possible need for debridement. 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 Mother is from diabetes in her 80s. She has 2 brothers, 1 from an MVA, the other one has diabetes. 2 sisters one is blind and the other one is diabetic with one leg amputation. Living arrangement: snf ([facility]) Social History Notes: Patient resides at [facility]. She does not consume alcohol or use recreational substances. She was for 62 years but is currently . - POLST Patient has POLST: No POLST Status: DNR Meds/Allgy - Home Medications Home Medications: Ambulatory Orders Medication Instructions Recorded Confirmed Calcium Carbonate [Calcium] 1,000 mg PO Q2H PRN 06/08/16 07/23/20 Hydrocodone/Acetaminophen 1 tab PO Q6H PRN 06/09/16 07/23/20 [Hydrocodon-Acetaminophn 10-325] Multivitamin [Multiple Vitamins] 1 each PO DAILY 06/09/16 07/23/20 Senna [Senokot] 8.6 mg PO DAILY PRN 06/09/16 07/23/20 polyethylene glycoL 3350 [Miralax] 17 gm PO DAILY 06/09/16 07/23/20 Gabapentin [Neurontin] 200 mg PO TID 07/22/20 07/23/20 Metoprolol Succinate [Toprol Xl] 25 mg PO BID 07/22/20 07/23/20 Potassium Chloride [K-Dur] 20 meq PO BIDWM 07/22/20 07/23/20 Torsemide 80 mg PO DAILY 07/22/20 07/23/20 allopurinoL [Zyloprim] 100 mg PO DAILY 07/22/20 07/23/20 Ascorbic Acid 500 mg PO DAILY 07/23/20 07/23/20 Bisacodyl Supp [Dulcolax Supp] 10 mg NV Q24H PRN 07/23/20 07/23/20 Diclofenac Sodium [Voltaren 2 gm TP Q6H PRN 07/23/20 07/23/20 Arthritis Pain] Ipratropium/Albuterol [Combivent 1 puffs IH Q6H PRN 07/23/20 07/23/20 Respimat] Lactobacillus Rhamnosus GG 1 cap PO DAILY 07/23/20 07/23/20 [Culturelle] Loperamide [Imodium] 2 mg PO Q6H PRN 07/23/20 07/23/20 Loteprednol Etabonate 1 drops EACHEYE BID 07/23/20 07/23/20 Magnesium Hydroxide [Milk of 30 ml PO Q24H PRN 07/23/20 07/23/20 Magnesia] Melatonin 3 mg PO HS 07/23/20 07/23/20 Mineral Oil [Mineral Oil Enema] 1 unit RC Q24H PRN 07/23/20 07/23/20 Nitroglycerin [Nitrostat] 0.4 mg SL Q5M PRN 07/23/20 07/23/20 Ondansetron HCl [Zofran] 4 mg PO Q8H PRN 07/23/20 07/23/20 Prednisolone Acetate/Pf 1 drops EACHEYE BID 07/23/20 07/23/20 [Prednisolone Acet 1% Eye Drop] Propylene Glycol/Peg 400/Pf 1 each EACHEYE Q4H PRN 07/23/20 07/23/20 [Systane 0.3-0.4% Eye Drops] Simethicone [Mylicon] 160 mg PO Q6H PRN 07/23/20 07/23/20 Sodium Chloride [Saline Nasal 1 sprays BIBI Q4HR PRN 07/23/20 07/23/20 [place]] Trolamine Salicylate [Analgesic] 1 applic TP Q6H PRN 07/23/20 07/23/20 Vitamin B Complex 1 each PO DAILY 07/23/20 07/23/20 hydrOXYzine HCL [Hydroxyzine HCl] 50 mg PO Q6H PRN 07/23/20 07/23/20 - Allergies Allergies/Adverse Reactions: Allergies Allergy/AdvReac Type Severity Reaction Status Date / Time Latex, Natural Rubber Allergy Unknown Verified 07/22/20 17:05 mupirocin Allergy Rash Verified 07/22/20 17:05 silver Allergy Rash Verified 07/22/20 17:05 methotrexate AdvReac Headache Verified 07/22/20 17:05 Exam - Vital Signs Vital Signs: Vital Signs x48h Temp Pulse Resp BP Pulse Ox 07/27/20 16:16 36.7 C 75 12 97/63 96 07/27/20 12:14 36.6 C 82 19 101/65 97 07/27/20 08:23 36.6 C 72 15 107/68 96 - Physical Exam General Appearance: positive: No acute distress Eyes Bilateral: positive: Normal inspection, PERRL ENT: positive: No signs of dehydration Neck: positive: No JVD, Other (ecchymosis right neck) Respiratory: positive: No respiratory distress Abdomen: positive: No distention Extremities: positive: Pedal edema (3 plus edema. tense edema with bilateral superficial sloughing of epidermis. posterior left ankle possible small area of epidermal loss to deep dermis. scant epidermis easily removed with dressing change. Over all the area is clean, without infection and current care is excellent) Conclusion and Plan - Lab Results Laboratory Results 07/27/20 11:17: Potassium 3.5, Calcium 7.6 L, Magnesium 1.9 07/27/20 11:17: Troponin I High Sens 49.1 H* 07/27/20 05:25: Sodium 137, Potassium 3.7, Chloride 92 L, Carbon Dioxide 36 H, Anion Gap 9.0, BUN 39 H, Creatinine 0.9, Estimated GFR (MDRD) 60 L, Glucose 92, Calcium 7.7 L, Phosphorus 2.7, Magnesium 2.1 07/27/20 05:25: WBC 7.0, RBC 3.14 L, Hgb 9.8 L, Hct 32.1 L, MCV 102.2 H, MCH 31.2 H, MCHC 30.5 L, RDW 19.9 H, Plt Count 180, MPV 10.7, Neut # (Auto) 4.4, Lymph # (Auto) 1.8, [place] # (Auto) 0.5, Eos # (Auto) 0.2, Baso # (Auto) 0.0, Absolute Nucleated RBC 0.00, Nucleated RBC % 0.0 07/26/20 05:20: Sodium 133 L, Potassium 4.0, Chloride 88 L, Carbon Dioxide 37 H, Anion Gap 8.0, BUN 43 H, Creatinine 1.0, Estimated GFR (MDRD) 53 L, Glucose 88, Calcium 7.9 L, Phosphorus 2.8, Magnesium 2.1 07/26/20 05:20: WBC 7.0, RBC 3.19 L, Hgb 10.1 L, Hct 32.7 L, MCV 102.5 H, MCH 31.7 H, MCHC 30.9 L, RDW 19.9 H, Plt Count 191, MPV 11.0 H, Neut # (Auto) 4.3, Lymph # (Auto) 2.0, [place] # (Auto) 0.5, Eos # (Auto) 0.2, Baso # (Auto) 0.0, Absolute Nucleated RBC 0.00, Nucleated RBC % 0.0 - Diagnosis Diagnosis: chf with tense dependent/ lower extremity edema and superficial sloughing of epidermis bilateral feet/ ankles. I believe her current care is excellent. Agree with current care with dressing changes and leg elevation as tolerated and medical care of her chf. I believe the scant epidermis is best removed with the current gentle dressing care
[2020-07-27] MEDS: HYDROcod/ACETAM 10 MG/325 MG TABLET PO PRN (20:28)
[2020-07-28] MEDS: SODIUM CHLORIDE FLUSH 0.9% 10 ML SYRINGE IVP SCH ×3 (00:04→17:30)
[2020-07-28] MEDS: ACETAMINOPHEN 325 MG TABLET PO PRN ×3 (00:04→21:23)
[2020-07-28] MEDS: HYDROcod/ACETAM 10 MG/325 MG TABLET PO PRN ×2 (02:28→12:18)
[2020-07-28 05:52] LABS: HGB - HEMOGLOBIN 9.3 g/dL (12.0-16.0); MEAN CORPUSCULAR HGB CONC 30.4 g/dL (32.0-36.0); MEAN PLATELET VOLUME 11.5 fL (7.9-10.8); WHITE BLOOD COUNT 7.5 x10^3/uL (4.8-10.8)
[2020-07-28] MEDS: GABAPENTIN 100 MG CAPSULE PO SCH ×3 (06:09→21:23)
[2020-07-28 06:15] LABS: CALCIUM 7.6 mg/dL (8.5-10.3)
[2020-07-28 06:37] LABS: FOLATE 11.11 ng/mL (5.90 - >24.8)
[2020-07-28] MEDS: NYSTATIN POWDER 15 GM TOP SCH ×2 (08:12→18:21)
[2020-07-28] MEDS ORDERED: MINERAL OIL ENEMA 133 ML BOTTLE RC PRN (08:45)
[2020-07-28] MEDS ORDERED: BISACODYL 10 MG SUPP PR PRN (08:45)
[2020-07-28] MEDS ORDERED: SODIUM CHLORIDE 0.65% NASAL SPRAY NAS PRN (08:45)
[2020-07-28] MEDS ORDERED: DICLOFENAC SODIUM TP PRN (08:45)
[2020-07-28] MEDS ORDERED: SENNA 8.6 MG TABLET PO PRN (08:45)
--- NOTE | 2020-07-28 08:49 | PROVIDER PROGRESS NOTE ---
Assessment/Plan - Problem List (1) Acute on chronic diastolic heart failure Assessment/Plan: Yesterday's 24hr period, she had positive fluid balance, compared to every day before that, which was negative fluid balance. Also her BUN/creatinine is decreased suggesting she is less volume depleted. She is eating 100% of her meal including her liquids. Will increase her IV diuretic to twice daily. Follow her potassium and magnesium daily for replacement if needed. Follow I's and O's and daily weight. (2) Cor pulmonale Assessment/Plan: As per Echo done this admission. (3) COVID-19 Assessment/Plan: There has been no fever, change in her taste or smell or cough. She is on her stable 2 L of oxygen per NC. She got 1 dose of Decadron and remdesivir and then they were stopped because her Covid symptoms are felt to be negligible. She is approximately 1 week out since being testing positive therefore she still may have a chance for worsening symptoms however. Continue with isolation precaution orders (4) Chronic respiratory failure with hypoxia Assessment/Plan: She has been on 2 L of O2 24/ before this admission. Possibly with more aggressive diuresis, this supplemental O2 need will decrease or be eliminated. (5) Venous stasis ulcers of both lower extremities Assessment/Plan: As per history. General Surgery, Dr Workman, saw this patient in consult yesterday afternoon and recommended continued present management, no debridement was needed. (6) Chronic atrial fibrillation Assessment/Plan: Heart rate is under control on her metoprolol treatment. She is on baby aspirin for stroke prophylaxis, Coumadin was stopped at mid year because of a GI bleed. (7) Fibromyalgia Assessment/Plan: She was getting Tylenol and gabapentin and low doses of codeine. Yesterday I increased the Tylenol and codeine to her home dose and have restarted the arthritis gel today. (8) Anemia Assessment/Plan: Hemoglobin is fluctuating between 9 and 10 this admission. Serum B12 and folate levels were checked and are normal. Serum iron stores are low. We will start oral iron replacement. Follow CBC daily. (9) Elevated troponin Assessment/Plan: These were flat at the time of admission (69, 70) and did not increase when she had the V. tach yesterday (49). Her elevated numbers are felt to be due to CHF. (10) Morbid obesity Assessment/Plan: As per Hx (11) V-tach Assessment/Plan: None further seen. - Current Meds Current Meds: Current Medications Generic Name Dose Route Start Last Admin Trade Name Freq PRN Reason Stop Dose Admin Acetaminophen 650 mg 07/22/20 17:37 07/28/20 06:09 Acetaminophen 325 Mg Tablet PO 650 mg Q4HR PRN Administration Pain 1 to 4 Hydrocodone Bitart/Acetaminophen 1 tab 07/27/20 13:43 07/28/20 02:28 Hydrocod/Acetam 10 Mg/325 Mg Tablet PO 1 tab Q6H PRN Administration PAIN >8 Allopurinol 100 mg 07/24/20 09:00 07/27/20 08:42 Allopurinol 100 Mg Tablet PO 100 mg DAILY KEAGAN Administration Aspirin 81 mg 07/27/20 09:00 07/27/20 08:40 Aspirin Chew 81 Mg Tablet PO 81 mg DAILY KEAGAN Administration Calcium Carbonate/Glycine 500 mg 07/23/20 16:28 07/23/20 16:46 Calcium Carbonate Chew 500 Mg Tablet PO 500 mg BID PRN Administration Heartburn Enoxaparin Sodium 40 mg 07/25/20 21:00 07/27/20 20:28 Enoxaparin 40 Mg/0.4 Ml Syringe SUBQ 40 mg BID KEAGAN Administration Gabapentin 200 mg 07/23/20 14:00 07/28/20 06:09 Gabapentin 100 Mg Capsule PO 200 mg TID KEAGAN Administration Metoprolol Succinate 25 mg 07/23/20 21:00 07/27/20 20:28 Metoprolol Succinate 25 Mg Tablet PO 25 mg BID KEAGAN Administration Mineral Oil 1 applic 07/23/20 04:25 07/27/20 16:18 Min Oil/Dimethicon/Coconut Oil 92 Gm Tube TOP 1 applic PRN PRN Administration Skin Care Multivitamins 1 tab 07/24/20 08:00 07/27/20 08:42 Multivitamin Tablet PO 1 tab DAILYWM KEAGAN Administration Nystatin 1 applic 07/23/20 09:00 07/28/20 08:12 Nystatin Powder 15 Gm TOP 1 applic BID KEAGAN Administration Polyethylene Glycol 17 gm 07/23/20 09:00 07/27/20 08:43 Polyethylene Glycol 3350 17 Gm Packet PO 17 gm DAILY KEAGAN Administration Senna 8.6 mg 07/23/20 11:37 07/25/20 08:48 Senna 8.6 Mg Tablet PO 8.6 mg DAILY PRN Administration Constipation Sodium Chloride 10 ml 07/23/20 01:00 07/28/20 00:04 Sodium Chloride Flush 0.9% 10 Ml Syringe IVP 10 ml 0100,0900,1700 KEAGAN Administration Sodium Chloride 10 ml 07/22/20 17:37 07/25/20 04:23 Sodium Chloride Flush 0.9% 10 Ml Syringe IVP 30 ml PRN PRN Administration NEEDED PER PROVIDER ORDERS - Lab Result Fish Bone Diagrams: 07/28/20 05:19 07/28/20 05:19 - Additional Planning My Orders: My Active Orders 07/27/20 Lunch DIET [Low Sodium Diet] [DIET] 07/27/20 13:43 HYDROcodone/ACET 10/325 [[place] 10 mg/325 mg] 1 tab PO Q6H PRN 07/28/20 08:45 Bisacodyl Supp [Dulcolax Supp] 10 mg [place] Q24H PRN Mineral Oil [Mineral Oil Enema] 1 unit RC Q24H PRN Senna [Senokot] 8.6 mg PO DAILY PRN Sodium Chloride 0.65% [Stem] 1 sprays BIBI Q4HR PRN 07/28/20 08:45 Diclofenac Sodium [Voltaren Arthritis Pain] 2 gm TP Q6H PRN Ipratropium/Albuterol [Combivent Respimat] 1 puffs IH Q6H PRN 07/28/20 09:00 FUROSEMIDE INJ 40mg VIAL [LASIX INJ 40 mg VIAL] 40 mg IVP BIDDIURETIC Lactobacillus Rhamnosus GG [Culturelle] 1 cap PO DAILY Loteprednol Etabonate [Loteprednol Etabonate] 1 drops EACHEYE BID Prednisolone Acetate/Pf [Prednisolone Acet 1% Eye Drop] 1 drops EACHEYE BID polyethylene glycoL 3350 [Miralax] 17 gm PO DAILY 07/28/20 21:00 Melatonin [Melatonin] 3 mg PO HS 07/29/20 05:00 BMP - BASIC METABOLIC PANEL [CHEM] DAILYLAB CBC W/O DIFF (HEMOGRAM) [HEME] DAILYLAB Subjective - Subjective Patient Reports: Feeling Better (Pain is under better control with resumption of her higher dose of Tylenol with codeine yesterday and her topical arthritis gel today.), Other (She is sleepy and I am seeing her, she got her [place] dose previous to this) Objective Vital Signs: Vital Signs - 24 hr 07/27/20 07/27/20 07/27/20 12:14 16:16 20:00 Temperature 36.6 C 36.7 C 36.5 C Heart Rate [ Brachial] Heart Rate [ 82 75 82 Monitoring electrodes] Respiratory 19 12 14 Rate Blood Pressure 101/65 97/63 104/94 H [Right Radial artery] O2 Saturation 97 96 14 L 07/27/20 07/28/20 07/28/20 21:04 00:16 05:00 Temperature 36.5 C 37.1 C 36.7 C Heart Rate [ 100 97 80 Brachial] Heart Rate [ Monitoring electrodes] Respiratory 22 20 16 Rate Blood Pressure 112/64 117/84 H 104/73 [Right Radial artery] O2 Saturation 100 96 96 07/28/20 08:04 Temperature 36.4 C L Heart Rate [ 77 Brachial] Heart Rate [ Monitoring electrodes] Respiratory 12 Rate Blood Pressure 103/61 [Right Radial artery] O2 Saturation 98 Oxygen O2 Source Nasal cannula Oxygen Flow Rate 5 I&O (Last 24 Hrs): Intake and Output Totals x24h 07/26/20 07/27/20 07/28/20 23:59 23:59 23:59 Intake Total 890 1480 250 Output Total 3290 1200 Balance -2400 280 250 General: Alert, Other (Sleepy after her [place] dose for pain) HEENT: Mucous membr. moist/pink Neck: Supple Neuro: Alert, Non Focal Cardiovascular: Regular rate Respiratory: No respiratory distress (Wearing O2 by nasal cannula, has a wet cough but no sputum production. All breath sounds are very distant in every lung field) Abdomen: Soft, Other (Obese with a large pannus down to her knees nearly.) Extremities: Other (3+ pitting edema to her hips. Both lower calves are in bandages.) - Results Results: Laboratory Results WBC 7.5 x10^3/uL (4.8-10.8) 07/28/20 05:19 RBC 3.00 10^6/uL (4.20-5.40) L 07/28/20 05:19 Hgb 9.3 g/dL (12.0-16.0) L 07/28/20 05:19 Hct 30.6 % (37.0-47.0) L 07/28/20 05:19 MCV 102.0 fL (81.0-99.0) H 07/28/20 05:19 MCH 31.0 pg (27.0-31.0) 07/28/20 05:19 MCHC 30.4 g/dL (32.0-36.0) L 07/28/20 05:19 RDW 20.0 % (12.0-15.0) H 07/28/20 05:19 Plt Count 169 10^3/uL (130-450) 07/28/20 05:19 MPV 11.5 fL (7.9-10.8) H 07/28/20 05:19 Neut # (Auto) 4.4 10^3/uL (1.5-6.6) 07/27/20 05:25 Lymph # (Auto) 1.8 10^3/uL (1.5-3.5) 07/27/20 05:25 [place] # (Auto) 0.5 10^3/uL (0.0-1.0) 07/27/20 05:25 Eos # (Auto) 0.2 10^3/uL (0.0-0.7) 07/27/20 05:25 Baso # (Auto) 0.0 10^3/uL (0.0-0.1) 07/27/20 05:25 Absolute Nucleated RBC 0.00 x10^3/uL 07/27/20 05:25 Nucleated RBC % 0.0 /100WBC 07/27/20 05:25 WBC Morphology NORMAL APPEARANCE (NORMAL) 07/22/20 16:18 Platelet Estimate NORMAL (130-450,000) (NORMAL) 07/22/20 16:18 Platelet Morphology NORMAL APPEARANCE (NORMAL) 07/22/20 16:18 RBC Morph Micro Appear 3+ ANISOCYTOSIS (NORMAL) 1+ MACROCYTOSIS (NORMAL) 1+ POLYCHROMASIA (NORMAL) 07/22/20 16:18 RBC Morph Micro Appear 3+ ANISOCYTOSIS (NORMAL) 1+ MACROCYTOSIS (NORMAL) 1+ POLYCHROMASIA (NORMAL) 07/22/20 16:18 RBC Morph Micro Appear 3+ ANISOCYTOSIS (NORMAL) 1+ MACROCYTOSIS (NORMAL) 1+ POLYCHROMASIA (NORMAL) 07/22/20 16:18 ESR 45 mm/Hr (0-30) H 07/22/20 16:18 PT 15.6 secs (9.9-12.6) H 07/22/20 16:18 INR 1.4 (0.8-1.2) H 07/22/20 16:18 APTT 31.3 secs (24.9-33.3) 07/22/20 16:18 D-Dimer 427.4 ng/mL (200.0-255.0) H 07/22/20 16:18 VBG pH 7.421 (7.31-7.41) H 07/22/20 16:18 VBG pCO2 59.8 mmHg (41-51) H 07/22/20 16:18 VBG pO2 59.0 mmHg (25-47) H 07/22/20 16:18 VBG HCO3 38.0 mmol/L (23-28) H 07/22/20 16:18 VBG Total CO2 39.8 mmol/L (24-29) H 07/22/20 16:18 VBG O2 Saturation 90.0 % (60-80) H 07/22/20 16:18 VBG Base Excess 11.6 mmol/L (-2 - +2) H 07/22/20 16:18 Sodium 134 mmol/L (135-145) L 07/28/20 05:19 Potassium 3.9 mmol/L (3.5-5.0) 07/28/20 05:19 Chloride 90 mmol/L (101-111) L 07/28/20 05:19 Carbon Dioxide 34 mmol/L (21-32) H 07/28/20 05:19 Anion Gap 10.0 (6-13) 07/28/20 05:19 BUN 38 mg/dL (6-20) H 07/28/20 05:19 Creatinine 1.0 mg/dL (0.4-1.0) 07/28/20 05:19 Estimated GFR (MDRD) 53 (>89) L 07/28/20 05:19 Glucose 86 mg/dL (70-100) 07/28/20 05:19 Lactic Acid 1.5 mmol/L (0.5-2.2) 07/22/20 16:18 Calcium 7.6 mg/dL (8.5-10.3) L 07/28/20 05:19 Phosphorus 2.7 mg/dL (2.5-4.6) 07/27/20 05:25 Magnesium 1.9 mg/dL (1.7-2.8) 07/27/20 11:17 Iron 31 ug/dL (28-170) 07/28/20 05:19 TIBC 237 ug/dL (250-450) L 07/28/20 05:19 % Saturation 13 % (20-50) L 07/28/20 05:19 Transferrin 169 mg/dL (192-382) L 07/28/20 05:19 Total Bilirubin 1.0 mg/dL (0.2-1.0) 07/22/20 16:18 AST 60 IU/L (10-42) H 07/22/20 16:18 ALT 18 IU/L (10-60) 07/22/20 16:18 Alkaline Phosphatase 290 IU/L (42-121) H 07/22/20 16:18 Troponin I High Sens 49.1 ng/L (2.3-14.8) H* 07/27/20 11:17 C-Reactive Protein 3.7 mg/dL (0-1.0) H 07/22/20 16:18 B-Natriuretic Peptide 774 pg/mL (5-100) H 07/25/20 04:15 Total Protein 6.1 g/dL (6.7-8.2) L 07/22/20 16:18 Albumin 1.9 g/dL (3.2-5.5) L 07/24/20 04:35 Globulin 4.0 g/dL (2.1-4.2) 07/22/20 16:18 Albumin/Globulin Ratio 0.5 (1.0-2.2) L 07/22/20 16:18 Lipase 26 U/L (22-51) 07/22/20 16:18 Vitamin B12 341 pg/mL (180-914) 07/28/20 05:19 Folate 11.11 ng/mL (5.90 - >24.8) 07/28/20 05:19 Nasal Screen MRSA (PCR) NEGATIVE (NEGATIVE) 07/22/20 20:55
[2020-07-28] MEDS ORDERED: LOTEPREDNOL ETABONATE EACHEYE SCH (09:00)
[2020-07-28] MEDS ORDERED: polyethylene glycoL 3350 17 GM PACKET PO SCH (09:00)
[2020-07-28] MEDS: allopurinoL 100 MG TABLET PO SCH (09:02)
[2020-07-28] MEDS: MULTIVITAMIN TABLET PO SCH (09:02)
[2020-07-28] MEDS: METOPROLOL SUCCINATE 25 MG TABLET PO SCH ×2 (09:03→21:23)
[2020-07-28] MEDS: FUROSEMIDE 40 MG/4 ML VIAL IVP SCH ×2 (09:03→14:04)
[2020-07-28] MEDS: ENOXAPARIN 40 MG/0.4 ML SYRINGE SUBQ SCH ×2 (09:03→21:23)
[2020-07-28] MEDS: polyethylene glycoL 3350 17 GM PACKET PO SCH (09:03)
[2020-07-28] MEDS: ASPIRIN CHEW 81 MG TABLET PO SCH (09:03)
[2020-07-28] MEDS ORDERED: ALBUTEROL 1 PUFF INH PRN (09:42)
[2020-07-28] MEDS: FERROUS GLUCONATE 324 MG TABLET PO SCH (12:17)
[2020-07-28] MEDS: LACTOBACILLUS RHAMNOSUS GG CAPSULE PO SCH (12:17)
[2020-07-28] MEDS: prednisoLONE 1% OPHTH DROPS 75 DROPS/5 ML BOTTLE EACHEYE SCH ×2 (12:18→21:24)
[2020-07-28] MEDS: SODIUM CHLORIDE FLUSH 0.9% 10 ML SYRINGE IVP PRN (14:04)
[2020-07-28] MEDS: MIN OIL/DIMETHICON/COCONUT OIL 92 GM TUBE TOP PRN (14:24)
[2020-07-28] MEDS ORDERED: NON FORMULARY MED (Melatonin [Melatonin] 3 MG Tablet) PO SCH (21:00)
[2020-07-29] MEDS: SODIUM CHLORIDE FLUSH 0.9% 10 ML SYRINGE IVP SCH ×3 (01:02→15:56)
[2020-07-29] MEDS: HYDROcod/ACETAM 10 MG/325 MG TABLET PO PRN (01:03)
[2020-07-29] MEDS: GABAPENTIN 100 MG CAPSULE PO SCH ×3 (05:09→21:06)
[2020-07-29] MEDS: FUROSEMIDE 40 MG/4 ML VIAL IVP SCH ×2 (05:09→14:49)
[2020-07-29 05:14] LABS: HGB - HEMOGLOBIN 10.2 g/dL (12.0-16.0); MEAN PLATELET VOLUME 10.7 fL (7.9-10.8); RED BLOOD COUNT 3.29 10^6/uL (4.20-5.40); RED CELL DISTRIBUTION WIDTH 20.1 % (12.0-15.0); WHITE BLOOD COUNT 7.4 x10^3/uL (4.8-10.8)
[2020-07-29 05:21] LABS: CALCIUM 8.1 mg/dL (8.5-10.3)
--- NOTE | 2020-07-29 08:39 | PROVIDER PROGRESS NOTE ---
Assessment/Plan - Problem List (1) Anasarca Assessment/Plan: She has had an 8 kg weight loss since being admitted (16 pounds of water weight is off). She still has pitting edema up to her hips. Continue with IV twice daily Lasix. Follow I's and O's and daily weights. Follow BUN/creatinine. Will back off on the diuretic when the BUN/creatinine show elevation (2) Hypersomnolence disorder, acute Assessment/Plan: After yesterday's mid-day higher dose of Tylenol with Codeine 10-325 (which was her home dose resumed and increased from 5325 because it was not controlling pain), she has been sleeping nonstop. We will decrease this dose to only daily. (3) Acute on chronic diastolic heart failure Assessment/Plan: When she had positive fluid balance 2 days ago, we increased her IV diuretic from daily to twice daily. She is eating 100% of her meal including her liquids. Follow her potassium and magnesium daily for replacement if needed. Follow I's and O's and daily weight. (4) Cor pulmonale Assessment/Plan: As per Echo done this admission. (5) COVID-19 Assessment/Plan: There has been no fever, no change in her taste or smell. She is on her stable, chronic 2 L of oxygen per NC. She got 1 dose of Decadron and remdesivir and then they were stopped because her Covid symptoms are felt to be negligible. She is approximately 9 days out since being tested positive therefore she still may have a chance for worsening symptoms however. Continue with isolation precaution orders (6) Chronic respiratory failure with hypoxia Assessment/Plan: She has been on 2 L of O2 24 before this admission. Possibly with more aggressive diuresis, this supplemental O2 need will lower or be eliminated. (7) Venous stasis ulcers of both lower extremities Assessment/Plan: As per history. General Surgery, Dr Workman, saw this patient in consult this admission and recommended continued present management, no debridement was needed. (8) Chronic atrial fibrillation Assessment/Plan: Heart rate is under control on her Metoprolol succinate treatment. She was started here on baby aspirin daily for stroke prophylaxis, Coumadin was stopped at mid year because of a GI bleed. (9) Fibromyalgia Assessment/Plan: She was getting Tylenol and gabapentin and low doses of codeine 5mg, which was not controlling her pain, she said. 2 days ago, I increased the Tylenol and codeine to her home dose and yesterday restarted the arthritis gel. Of codeine is causing hypersomnolence. We will decrease that codeine management to just once daily. (10) Anemia Qualifiers: Anemia type: iron deficiency Assessment/Plan: B12 and folate stores were adequate. Serum iron stores were low. She has been started on daily oral iron supplement (11) Elevated troponin Assessment/Plan: These were flat at the time of admission (69, 70) and did not increase when she had the V. tach (49). Her elevated numbers are felt to be due to CHF. (12) Morbid obesity Assessment/Plan: As per Hx and she is bed-bound. (13) V-tach Assessment/Plan: None further seen as 2 days ago. - Current Meds Current Meds: Current Medications Generic Name Dose Route Start Last Admin Trade Name Freq PRN Reason Stop Dose Admin Acetaminophen 650 mg 07/22/20 17:37 07/28/20 21:23 Acetaminophen 325 Mg Tablet PO 650 mg Q4HR PRN Administration Pain 1 to 4 Hydrocodone Bitart/Acetaminophen 1 tab 07/27/20 13:43 07/29/20 01:03 Hydrocod/Acetam 10 Mg/325 Mg Tablet PO 1 tab Q6H PRN Administration PAIN >8 Allopurinol 100 mg 07/24/20 09:00 07/28/20 09:02 Allopurinol 100 Mg Tablet PO 100 mg DAILY KEAGAN Administration Aspirin 81 mg 07/27/20 09:00 07/28/20 09:03 Aspirin Chew 81 Mg Tablet PO 81 mg DAILY KEAGAN Administration Calcium Carbonate/Glycine 500 mg 07/23/20 16:28 07/23/20 16:46 Calcium Carbonate Chew 500 Mg Tablet PO 500 mg BID PRN Administration Heartburn Enoxaparin Sodium 40 mg 07/25/20 21:00 07/28/20 21:23 Enoxaparin 40 Mg/0.4 Ml Syringe SUBQ 40 mg BID KEAGAN Administration Ferrous Gluconate 324 mg 07/28/20 12:00 07/28/20 12:17 Ferrous Gluconate 324 Mg Tablet PO 324 mg DAILYWM KEAGAN Administration Furosemide 40 mg 07/28/20 09:00 07/29/20 05:09 Furosemide 40 Mg/4 Ml Vial IVP 40 mg BIDDIURETIC KEAGAN Administration Gabapentin 200 mg 07/23/20 14:00 07/29/20 05:09 Gabapentin 100 Mg Capsule PO 200 mg TID KEAGAN Administration Lactobacillus Rhamnosus 1 cap 07/28/20 09:00 07/28/20 12:17 Lactobacillus Rhamnosus Gg Capsule PO 1 cap DAILY KEAGAN Administration Metoprolol Succinate 25 mg 07/23/20 21:00 07/28/20 21:23 Metoprolol Succinate 25 Mg Tablet PO 25 mg BID KEAGAN Administration Mineral Oil 1 applic 07/23/20 04:25 07/28/20 14:24 Min Oil/Dimethicon/Coconut Oil 92 Gm Tube TOP 1 applic PRN PRN Administration Skin Care Multivitamins 1 tab 07/24/20 08:00 07/28/20 09:02 Multivitamin Tablet PO 1 tab DAILYWM KEAGAN Administration Nystatin 1 applic 07/23/20 09:00 07/28/20 18:21 Nystatin Powder 15 Gm TOP 1 applic BID KEAGAN Administration Polyethylene Glycol 17 gm 07/23/20 09:00 07/28/20 09:03 Polyethylene Glycol 3350 17 Gm Packet PO 17 gm DAILY KEAGAN Administration Prednisolone 1 drops 07/28/20 12:00 07/28/20 21:24 Prednisolone 1% Ophth Drops 75 Drops/5 Ml Bottle EACHEYE 1 drops BID KEAGAN Administration Senna 8.6 mg 07/23/20 11:37 07/25/20 08:48 Senna 8.6 Mg Tablet PO 8.6 mg DAILY PRN Administration Constipation Sodium Chloride 10 ml 07/23/20 01:00 07/29/20 01:02 Sodium Chloride Flush 0.9% 10 Ml Syringe IVP 10 ml 0100,0900,1700 KEAGAN Administration Sodium Chloride 10 ml 07/22/20 17:37 07/28/20 14:04 Sodium Chloride Flush 0.9% 10 Ml Syringe IVP 10 ml PRN PRN Administration NEEDED PER PROVIDER ORDERS - Lab Result Fish Bone Diagrams: 07/29/20 05:01 07/29/20 05:01 - Additional Planning My Orders: My Active Orders 07/28/20 08:45 Sodium Chloride 0.65% [[place]] 1 sprays BIBI Q4HR PRN 07/28/20 09:00 FUROSEMIDE INJ 40mg VIAL [LASIX INJ 40 mg VIAL] 40 mg IVP BIDDIURETIC Lactobacillus Rhamnosus GG [Culturelle] 1 cap PO DAILY 07/28/20 09:42 Mdi: Albuterol 2 puffs INH Q4HR PRN 07/28/20 12:00 Ferrous Gluconate [Fergon] 324 mg PO DAILYWM prednisoLONE 1% OPHTH DROPS [Pred Forte 1% Ophth Drops] 1 drops EACHEYE BID 07/29/20 07:19 RT [Nebulizer/MDI Tx.] [RC] .Q4 PRN Subjective - Subjective Patient Reports: Other (Sleeping) Nursing Reports: Other (She needed to be fed breakfast because she was falling asleep as she was taking bites) Objective Vital Signs: Vital Signs - 24 hr 07/28/20 07/28/20 07/28/20 12:12 16:17 19:51 Temperature 37.2 C 36.5 C 36.4 C L Heart Rate [ 79 Brachial] Heart Rate [ 78 81 Radial] Respiratory 12 16 16 Rate Blood Pressure 100/57 L 114/67 122/68 [Right Radial artery] O2 Saturation 93 96 95 07/29/20 07/29/20 01:03 05:13 Temperature 36.5 C 36.7 C Heart Rate [ 86 73 Brachial] Heart Rate [ Radial] Respiratory 18 18 Rate Blood Pressure 124/74 101/60 [Right Radial artery] O2 Saturation 100 93 Oxygen O2 Source Nasal cannula Oxygen Flow Rate 5 I&O (Last 24 Hrs): Intake and Output Totals x24h 07/27/20 07/28/20 07/29/20 23:59 23:59 23:59 Intake Total 1480 800 450 Output Total 1200 820 350 Balance 280 -20 100 General: Other (Lethargic) HEENT: Mucous membr. moist/pink Neck: Supple Cardiovascular: Other (Irreg irreg) Respiratory: No respiratory distress, Other (Wearing O2 per nasal cannula) Abdomen: Soft, Other (Obese with lg pannus nearly down to her knees) Extremities: Other (3+ edema to upper thighs) - Results Results: Laboratory Results WBC 7.4 x10^3/uL (4.8-10.8) 07/29/20 05:01 RBC 3.29 10^6/uL (4.20-5.40) L 07/29/20 05:01 Hgb 10.2 g/dL (12.0-16.0) L 07/29/20 05:01 Hct 32.9 % (37.0-47.0) L 07/29/20 05:01 MCV 100.0 fL (81.0-99.0) H 07/29/20 05:01 MCH 31.0 pg (27.0-31.0) 07/29/20 05:01 MCHC 31.0 g/dL (32.0-36.0) L 07/29/20 05:01 RDW 20.1 % (12.0-15.0) H 07/29/20 05:01 Plt Count 206 10^3/uL (130-450) 07/29/20 05:01 MPV 10.7 fL (7.9-10.8) 07/29/20 05:01 Neut # (Auto) 4.4 10^3/uL (1.5-6.6) 07/27/20 05:25 Lymph # (Auto) 1.8 10^3/uL (1.5-3.5) 07/27/20 05:25 [place] # (Auto) 0.5 10^3/uL (0.0-1.0) 07/27/20 05:25 Eos # (Auto) 0.2 10^3/uL (0.0-0.7) 07/27/20 05:25 Baso # (Auto) 0.0 10^3/uL (0.0-0.1) 07/27/20 05:25 Absolute Nucleated RBC 0.00 x10^3/uL 07/27/20 05:25 Nucleated RBC % 0.0 /100WBC 07/27/20 05:25 WBC Morphology NORMAL APPEARANCE (NORMAL) 07/22/20 16:18 Platelet Estimate NORMAL (130-450,000) (NORMAL) 07/22/20 16:18 Platelet Morphology NORMAL APPEARANCE (NORMAL) 07/22/20 16:18 RBC Morph Micro Appear 3+ ANISOCYTOSIS (NORMAL) 1+ MACROCYTOSIS (NORMAL) 1+ POLYCHROMASIA (NORMAL) 07/22/20 16:18 RBC Morph Micro Appear 3+ ANISOCYTOSIS (NORMAL) 1+ MACROCYTOSIS (NORMAL) 1+ POLYCHROMASIA (NORMAL) 07/22/20 16:18 RBC Morph Micro Appear 3+ ANISOCYTOSIS (NORMAL) 1+ MACROCYTOSIS (NORMAL) 1+ POLYCHROMASIA (NORMAL) 07/22/20 16:18 ESR 45 mm/Hr (0-30) H 07/22/20 16:18 PT 15.6 secs (9.9-12.6) H 07/22/20 16:18 INR 1.4 (0.8-1.2) H 07/22/20 16:18 APTT 31.3 secs (24.9-33.3) 07/22/20 16:18 D-Dimer 427.4 ng/mL (200.0-255.0) H 07/22/20 16:18 VBG pH 7.421 (7.31-7.41) H 07/22/20 16:18 VBG pCO2 59.8 mmHg (41-51) H 07/22/20 16:18 VBG pO2 59.0 mmHg (25-47) H 07/22/20 16:18 VBG HCO3 38.0 mmol/L (23-28) H 07/22/20 16:18 VBG Total CO2 39.8 mmol/L (24-29) H 07/22/20 16:18 VBG O2 Saturation 90.0 % (60-80) H 07/22/20 16:18 VBG Base Excess 11.6 mmol/L (-2 - +2) H 07/22/20 16:18 Sodium 137 mmol/L (135-145) 07/29/20 05:01 Potassium 3.8 mmol/L (3.5-5.0) 07/29/20 05:01 Chloride 91 mmol/L (101-111) L 07/29/20 05:01 Carbon Dioxide 37 mmol/L (21-32) H 07/29/20 05:01 Anion Gap 9.0 (6-13) 07/29/20 05:01 BUN 38 mg/dL (6-20) H 07/29/20 05:01 Creatinine 1.0 mg/dL (0.4-1.0) 07/29/20 05:01 Estimated GFR (MDRD) 53 (>89) L 07/29/20 05:01 Glucose 85 mg/dL (70-100) 07/29/20 05:01 Lactic Acid 1.5 mmol/L (0.5-2.2) 07/22/20 16:18 Calcium 8.1 mg/dL (8.5-10.3) L 07/29/20 05:01 Phosphorus 2.7 mg/dL (2.5-4.6) 07/27/20 05:25 Magnesium 1.9 mg/dL (1.7-2.8) 07/27/20 11:17 Iron 31 ug/dL (28-170) 07/28/20 05:19 TIBC 237 ug/dL (250-450) L 07/28/20 05:19 % Saturation 13 % (20-50) L 07/28/20 05:19 Transferrin 169 mg/dL (192-382) L 07/28/20 05:19 Total Bilirubin 1.0 mg/dL (0.2-1.0) 07/22/20 16:18 AST 60 IU/L (10-42) H 07/22/20 16:18 ALT 18 IU/L (10-60) 07/22/20 16:18 Alkaline Phosphatase 290 IU/L (42-121) H 07/22/20 16:18 Troponin I High Sens 49.1 ng/L (2.3-14.8) H* 07/27/20 11:17 C-Reactive Protein 3.7 mg/dL (0-1.0) H 07/22/20 16:18 B-Natriuretic Peptide 774 pg/mL (5-100) H 07/25/20 04:15 Total Protein 6.1 g/dL (6.7-8.2) L 07/22/20 16:18 Albumin 1.9 g/dL (3.2-5.5) L 07/24/20 04:35 Globulin 4.0 g/dL (2.1-4.2) 07/22/20 16:18 Albumin/Globulin Ratio 0.5 (1.0-2.2) L 07/22/20 16:18 Lipase 26 U/L (22-51) 07/22/20 16:18 Vitamin B12 341 pg/mL (180-914) 07/28/20 05:19 Folate 11.11 ng/mL (5.90 - >24.8) 07/28/20 05:19 Nasal Screen MRSA (PCR) NEGATIVE (NEGATIVE) 07/22/20 20:55
[2020-07-29] MEDS: allopurinoL 100 MG TABLET PO SCH (09:23)
[2020-07-29] MEDS: LACTOBACILLUS RHAMNOSUS GG CAPSULE PO SCH (09:23)
[2020-07-29] MEDS: MULTIVITAMIN TABLET PO SCH (09:23)
[2020-07-29] MEDS: SENNA 8.6 MG TABLET PO PRN (09:23)
[2020-07-29] MEDS: ASPIRIN CHEW 81 MG TABLET PO SCH (09:23)
[2020-07-29] MEDS: polyethylene glycoL 3350 17 GM PACKET PO SCH (09:24)
[2020-07-29] MEDS: FERROUS GLUCONATE 324 MG TABLET PO SCH (09:25)
[2020-07-29] MEDS: METOPROLOL SUCCINATE 25 MG TABLET PO SCH ×2 (09:25→21:11)
[2020-07-29] MEDS: ACETAMINOPHEN 325 MG TABLET PO PRN ×2 (09:26→21:05)
[2020-07-29] MEDS: ENOXAPARIN 40 MG/0.4 ML SYRINGE SUBQ SCH ×2 (09:30→21:04)
[2020-07-29] MEDS: prednisoLONE 1% OPHTH DROPS 75 DROPS/5 ML BOTTLE EACHEYE SCH ×2 (09:31→21:06)
[2020-07-29] MEDS: NYSTATIN POWDER 15 GM TOP SCH ×2 (12:30→21:04)
[2020-07-29] MEDS: DOCUSATE SODIUM 250 MG CAPSULE PO SCH (21:05)
[2020-07-30] MEDS: SODIUM CHLORIDE FLUSH 0.9% 10 ML SYRINGE IVP SCH ×3 (01:00→18:34)
[2020-07-30] MEDS: FUROSEMIDE 40 MG/4 ML VIAL IVP SCH ×3 (06:11→16:00)
[2020-07-30] MEDS: GABAPENTIN 100 MG CAPSULE PO SCH ×3 (06:11→22:14)
[2020-07-30] MEDS ORDERED: PHENOL THROAT SPRAY 177 ML MM PRN (07:05)
[2020-07-30] MEDS ORDERED: HYDROcod/ACETAM 10 MG/325 MG TABLET PO PRN (08:38)
[2020-07-30 08:39] LABS: HGB - HEMOGLOBIN 9.3 g/dL (12.0-16.0); MEAN CORPUSCULAR HEMOGLOBIN 31.6 pg (27.0-31.0); MEAN CORPUSCULAR HGB CONC 31.6 g/dL (32.0-36.0); MEAN PLATELET VOLUME 10.7 fL (7.9-10.8); RED BLOOD COUNT 2.94 10^6/uL (4.20-5.40); RED CELL DISTRIBUTION WIDTH 20.2 % (12.0-15.0); WHITE BLOOD COUNT 7.4 x10^3/uL (4.8-10.8)
[2020-07-30 08:49] LABS: ALBUMIN 1.8 g/dL (3.2-5.5); ALBUMIN/GLOBULIN RATIO 0.5 (1.0-2.2); BILIRUBIN,TOTAL 1.5 mg/dL (0.2-1.0); CALCIUM 7.6 mg/dL (8.5-10.3); TOTAL PROTEIN 5.4 g/dL (6.7-8.2)
[2020-07-30] MEDS ORDERED: HYDROcod/ACETAM 10 MG/325 MG TABLET PO SCH (09:00)
[2020-07-30] MEDS: NYSTATIN POWDER 15 GM TOP SCH ×2 (09:01→20:37)
[2020-07-30] MEDS: ENOXAPARIN 40 MG/0.4 ML SYRINGE SUBQ SCH ×2 (09:01→22:14)
[2020-07-30] MEDS ORDERED: ALBUMIN 25% 12.5 GM/50 ML VIAL IV STA (09:08)
--- NOTE | 2020-07-30 09:15 | PROVIDER PROGRESS NOTE ---
Assessment/Plan - Problem List (1) Hypotension Assessment/Plan: BP this morning is 92 systolic, and even dropped to 70's Weight went up 3 kg since yesterday and I's and O's were slightly pos CMP was done that shows elevated LFTs and very low Albumen. I suspect the problem is the low Albumen and therefore dropped BP. She is hypo-osmotic, adding to free fluids leaking out of intravascular space, causing her her anasarca, including passive liver congestion. Will give 1 bag of Albumen iv. Will place hold parameters on her Metoprolol doses and iv Lasix doses , due to low BP. She is not ready for [facility] today. (2) Anasarca Assessment/Plan: We will continue with IV twice daily diuretics, when her blood pressure can tolerate it. Follow I's and O's and daily weights. Continue with low-salt diet (3) Hypersomnolence disorder, acute Assessment/Plan: The low BP is adding to her weakness and sleepiness today. The higher dose of codeine (10 mg) with Tylenol, caused her hypersomnolence yesterday. That was changed to dose only once a day, but mistakenly, it was ordered to give scheduled daily, not prn. It was not yet given this morning, and will change it to Tylenol with Codeine (10 mg) only once daily, and only prn severe pain. Narcan will be dosed for continued sedation/hypersomnolence Will obtain head CT if Narcan not fruitful. (4) Acute on chronic diastolic heart failure Assessment/Plan: When she had positive fluid balance 2 days ago, we increased her IV diuretic from daily to twice daily. She is eating 100% of her meal including her liquids. Continue iv diuretics and the supplemental Albumen today. Follow her potassium and magnesium daily for replacement if needed. Follow I's and O's and daily weight. (5) Cor pulmonale Assessment/Plan: As per Echo done this admission. She will be very fluid sensitive, overdiuresis will cause low blood pressure and under diuresis we will add to leg edema. (6) COVID-19 Assessment/Plan: There has been no fever, no change in her taste or smell. She is on her stable, chronic 2 L of oxygen per [place]. She got 1 dose of Decadron and remdesivir and then they were stopped because her Covid symptoms are felt to be negligible. She is approximately 10 days out since being tested positive, therefore she still may have a chance for worsening symptoms. Continue with isolation precaution orders (7) Chronic respiratory failure with hypoxia Assessment/Plan: She has been on 2 L of O2 19/02 before this admission. Possibly with more aggressive diuresis, this supplemental O2 need will lower or be eliminated. (8) Venous stasis ulcers of both lower extremities Assessment/Plan: General Surgery, Dr Workman, saw this patient in consult this admission and recommended continued present management, no debridement was needed. (9) Chronic atrial fibrillation Assessment/Plan: Heart rate is under control on her Metoprolol succinate treatment. She was started here on baby aspirin daily for stroke prophylaxis, Coumadin was stopped at mid year because of a GI bleed. (10) Fibromyalgia Assessment/Plan: She was getting Tylenol and gabapentin and low doses of codeine 5mg, which was not controlling her pain, she said, several days ago. After the Tylenol and codeine dose was increased to her home dose, it is causing hypersomnolence. I decreased that codeine management to just once daily. Continue the arthritis gel. (11) Anemia Qualifiers: Anemia type: iron deficiency Assessment/Plan: B12 and folate stores were adequate. Serum iron stores were low. She has been started on daily oral iron supplement and stool softeners. (12) Morbid obesity Assessment/Plan: As per Hx and she is bed-bound. (13) V-tach Assessment/Plan: No further long VT. Yesterday, a 4-beat run was seen. Continue telemetry. (14) Elevated troponin Assessment/Plan: These were flat at the time of admission (69, 70) and did not increase when she had the V. tach (49). Her elevated numbers are felt to be due to CHF. - Current Meds Current Meds: Current Medications Generic Name Dose Route Start Last Admin Trade Name Freq PRN Reason Stop Dose Admin Acetaminophen 650 mg 07/22/20 17:37 07/29/20 21:05 Acetaminophen 325 Mg Tablet PO 650 mg Q4HR PRN Administration Pain 1 to 4 Allopurinol 100 mg 07/24/20 09:00 07/29/20 09:23 Allopurinol 100 Mg Tablet PO 100 mg DAILY KEAGAN Administration Aspirin 81 mg 07/27/20 09:00 07/29/20 09:23 Aspirin Chew 81 Mg Tablet PO 81 mg DAILY KEAGAN Administration Calcium Carbonate/Glycine 500 mg 07/23/20 16:28 07/23/20 16:46 Calcium Carbonate Chew 500 Mg Tablet PO 500 mg BID PRN Administration Heartburn Docusate Sodium 250 - 500 mg 07/29/20 21:00 07/29/20 21:05 Docusate Sodium 250 Mg Capsule PO 250 mg DAILY KEAGAN Administration Enoxaparin Sodium 40 mg 07/25/20 21:00 07/30/20 09:01 Enoxaparin 40 Mg/0.4 Ml Syringe SUBQ 40 mg BID KEAGAN Administration Ferrous Gluconate 324 mg 07/28/20 12:00 07/29/20 09:25 Ferrous Gluconate 324 Mg Tablet PO 324 mg DAILYWM KEAGAN Administration Gabapentin 200 mg 07/23/20 14:00 07/30/20 06:11 Gabapentin 100 Mg Capsule PO 200 mg TID KEAGAN Administration Lactobacillus Rhamnosus 1 cap 07/28/20 09:00 07/29/20 09:23 Lactobacillus Rhamnosus Gg Capsule PO 1 cap DAILY KEAGAN Administration Mineral Oil 1 applic 07/23/20 04:25 07/28/20 14:24 Min Oil/Dimethicon/Coconut Oil 92 Gm Tube TOP 1 applic PRN PRN Administration Skin Care Multivitamins 1 tab 07/24/20 08:00 07/29/20 09:23 Multivitamin Tablet PO 1 tab DAILYWM KEAGAN Administration Nystatin 1 applic 07/23/20 09:00 07/30/20 09:01 Nystatin Powder 15 Gm TOP 1 applic BID KEAGAN Administration Polyethylene Glycol 17 gm 07/23/20 09:00 07/29/20 09:24 Polyethylene Glycol 3350 17 Gm Packet PO 17 gm DAILY KEAGAN Administration Prednisolone 1 drops 07/28/20 12:00 07/29/20 21:06 Prednisolone 1% Ophth Drops 75 Drops/5 Ml Bottle EACHEYE 1 drops BID KEAGAN Administration Senna 8.6 mg 07/23/20 11:37 07/29/20 09:23 Senna 8.6 Mg Tablet PO 8.6 mg DAILY PRN Administration Constipation Sodium Chloride 10 ml 07/23/20 01:00 07/30/20 06:11 Sodium Chloride Flush 0.9% 10 Ml Syringe IVP 10 ml 0100,0900,1700 KEAGAN Administration - Lab Result Fish Bone Diagrams: 07/30/20 08:22 07/30/20 08:22 - Additional Planning My Orders: My Active Orders 07/29/20 21:00 Docusate Sodium 250Mg Capsule [Colace 250Mg Capsule] 250 - 500 mg PO DAILY 07/30/20 07:05 Phenol [Chloraseptic] 2 sprays MM Q2HR PRN 07/30/20 08:38 HYDROcodone/ACET 10/325 [[place] 10 mg/325 mg] 1 tab PO DAILY PRN 07/30/20 09:07 FUROSEMIDE INJ 40mg VIAL [LASIX INJ 40 mg VIAL] 40 mg IVP BIDDIURETIC 07/30/20 09:08 Albumin 25% @ 50 mls/hr x 1 Albumin 25% [Albuminar-25] 12.5 gm in 50 ml IV ONCE 07/30/20 09:08 Metoprolol Succinate [Toprol Xl] 25 mg PO BID Subjective - Subjective Patient Reports: Other (Asleep all day, awoke and needed to be fed) Objective Vital Signs: Vital Signs - 24 hr 07/29/20 07/29/20 07/29/20 10:00 13:00 16:19 Temperature 36.4 C L 36.7 C Heart Rate 62 Heart Rate [ 80 Brachial] Heart Rate [ 91 Radial] Respiratory 14 18 19 Rate Blood Pressure 123/85 H 127/71 [Right Radial artery] O2 Saturation 97 96 07/29/20 07/30/20 07/30/20 22:16 01:00 04:45 Temperature 36.6 C 36.7 C 37.7 C Heart Rate Heart Rate [ 70 78 Brachial] Heart Rate [ 67 88 Radial] Respiratory 18 20 20 Rate Blood Pressure 104/69 117/74 111/68 [Right Radial artery] O2 Saturation 94 95 94 07/30/20 07/30/20 04:50 08:46 Temperature 37.2 C 37.4 C Heart Rate Heart Rate [ Brachial] Heart Rate [ 76 Radial] Respiratory 20 Rate Blood Pressure 92/42 L [Right Radial artery] O2 Saturation 97 Oxygen O2 Source Nasal cannula Oxygen Flow Rate 5 I&O (Last 24 Hrs): Intake and Output Totals x24h 07/28/20 07/29/20 07/30/20 23:59 23:59 23:59 Intake Total 800 1140 440 Output Total 820 1000 300 Balance -20 140 140 General: Other (Lethargic) HEENT: Mucous membr. moist/pink, Other (Pale) Neuro: Other (Lethargic) Cardiovascular: Regular rate Respiratory: No respiratory distress Abdomen: Soft Extremities: Other (3+ edema to hips) - Results Results: Laboratory Results WBC 7.4 x10^3/uL (4.8-10.8) 07/30/20 08:22 RBC 2.94 10^6/uL (4.20-5.40) L 07/30/20 08:22 Hgb 9.3 g/dL (12.0-16.0) L 07/30/20 08:22 Hct 29.4 % (37.0-47.0) L 07/30/20 08:22 MCV 100.0 fL (81.0-99.0) H 07/30/20 08:22 MCH 31.6 pg (27.0-31.0) H 07/30/20 08:22 MCHC 31.6 g/dL (32.0-36.0) L 07/30/20 08:22 RDW 20.2 % (12.0-15.0) H 07/30/20 08:22 Plt Count 197 10^3/uL (130-450) 07/30/20 08:22 MPV 10.7 fL (7.9-10.8) 07/30/20 08:22 Neut # (Auto) 4.4 10^3/uL (1.5-6.6) 07/27/20 05:25 Lymph # (Auto) 1.8 10^3/uL (1.5-3.5) 07/27/20 05:25 [place] # (Auto) 0.5 10^3/uL (0.0-1.0) 07/27/20 05:25 Eos # (Auto) 0.2 10^3/uL (0.0-0.7) 07/27/20 05:25 Baso # (Auto) 0.0 10^3/uL (0.0-0.1) 07/27/20 05:25 Absolute Nucleated RBC 0.00 x10^3/uL 07/27/20 05:25 Nucleated RBC % 0.0 /100WBC 07/27/20 05:25 WBC Morphology NORMAL APPEARANCE (NORMAL) 07/22/20 16:18 Platelet Estimate NORMAL (130-450,000) (NORMAL) 07/22/20 16:18 Platelet Morphology NORMAL APPEARANCE (NORMAL) 07/22/20 16:18 RBC Morph Micro Appear 3+ ANISOCYTOSIS (NORMAL) 1+ MACROCYTOSIS (NORMAL) 1+ POLYCHROMASIA (NORMAL) 07/22/20 16:18 RBC Morph Micro Appear 3+ ANISOCYTOSIS (NORMAL) 1+ MACROCYTOSIS (NORMAL) 1+ POLYCHROMASIA (NORMAL) 07/22/20 16:18 RBC Morph Micro Appear 3+ ANISOCYTOSIS (NORMAL) 1+ MACROCYTOSIS (NORMAL) 1+ POLYCHROMASIA (NORMAL) 07/22/20 16:18 ESR 45 mm/Hr (0-30) H 07/22/20 16:18 PT 15.6 secs (9.9-12.6) H 07/22/20 16:18 INR 1.4 (0.8-1.2) H 07/22/20 16:18 APTT 31.3 secs (24.9-33.3) 07/22/20 16:18 D-Dimer 427.4 ng/mL (200.0-255.0) H 07/22/20 16:18 VBG pH 7.421 (7.31-7.41) H 07/22/20 16:18 VBG pCO2 59.8 mmHg (41-51) H 07/22/20 16:18 VBG pO2 59.0 mmHg (25-47) H 07/22/20 16:18 VBG HCO3 38.0 mmol/L (23-28) H 07/22/20 16:18 VBG Total CO2 39.8 mmol/L (24-29) H 07/22/20 16:18 VBG O2 Saturation 90.0 % (60-80) H 07/22/20 16:18 VBG Base Excess 11.6 mmol/L (-2 - +2) H 07/22/20 16:18 Sodium 136 mmol/L (135-145) 07/30/20 08:22 Potassium 3.7 mmol/L (3.5-5.0) 07/30/20 08:22 Chloride 89 mmol/L (101-111) L 07/30/20 08:22 Carbon Dioxide 35 mmol/L (21-32) H 07/30/20 08:22 Anion Gap 12.0 (6-13) 07/30/20 08:22 BUN 38 mg/dL (6-20) H 07/30/20 08:22 Creatinine 1.0 mg/dL (0.4-1.0) 07/30/20 08:22 Estimated GFR (MDRD) 53 (>89) L 07/30/20 08:22 Glucose 91 mg/dL (70-100) 07/30/20 08:22 Lactic Acid 1.5 mmol/L (0.5-2.2) 07/22/20 16:18 Calcium 7.6 mg/dL (8.5-10.3) L 07/30/20 08:22 Phosphorus 2.7 mg/dL (2.5-4.6) 07/27/20 05:25 Magnesium 1.9 mg/dL (1.7-2.8) 07/27/20 11:17 Iron 31 ug/dL (28-170) 07/28/20 05:19 TIBC 237 ug/dL (250-450) L 07/28/20 05:19 % Saturation 13 % (20-50) L 07/28/20 05:19 Transferrin 169 mg/dL (192-382) L 07/28/20 05:19 Total Bilirubin 1.5 mg/dL (0.2-1.0) H 07/30/20 08:22 AST 62 IU/L (10-42) H 07/30/20 08:22 ALT 19 IU/L (10-60) 07/30/20 08:22 Alkaline Phosphatase 268 IU/L (42-121) H 07/30/20 08:22 Troponin I High Sens 49.1 ng/L (2.3-14.8) H* 07/27/20 11:17 C-Reactive Protein 3.7 mg/dL (0-1.0) H 07/22/20 16:18 B-Natriuretic Peptide 774 pg/mL (5-100) H 07/25/20 04:15 Total Protein 5.4 g/dL (6.7-8.2) L 07/30/20 08:22 Albumin 1.8 g/dL (3.2-5.5) L 07/30/20 08:22 Globulin 3.6 g/dL (2.1-4.2) 07/30/20 08:22 Albumin/Globulin Ratio 0.5 (1.0-2.2) L 07/30/20 08:22 Lipase 26 U/L (22-51) 07/22/20 16:18 Vitamin B12 341 pg/mL (180-914) 07/28/20 05:19 Folate 11.11 ng/mL (5.90 - >24.8) 07/28/20 05:19 Nasal Screen MRSA (PCR) NEGATIVE (NEGATIVE) 07/22/20 20:55
[2020-07-30] MEDS: allopurinoL 100 MG TABLET PO SCH (09:59)
[2020-07-30] MEDS: FERROUS GLUCONATE 324 MG TABLET PO SCH (09:59)
[2020-07-30] MEDS: MULTIVITAMIN TABLET PO SCH (09:59)
[2020-07-30] MEDS: polyethylene glycoL 3350 17 GM PACKET PO SCH (10:00)
[2020-07-30] MEDS: DOCUSATE SODIUM 250 MG CAPSULE PO SCH (10:00)
[2020-07-30] MEDS: prednisoLONE 1% OPHTH DROPS 75 DROPS/5 ML BOTTLE EACHEYE SCH ×2 (10:00→22:44)
[2020-07-30] MEDS: ASPIRIN CHEW 81 MG TABLET PO SCH (10:00)
[2020-07-30] MEDS: LACTOBACILLUS RHAMNOSUS GG CAPSULE PO SCH (10:00)
[2020-07-30] MEDS ORDERED: SODIUM CHLORIDE 0.9% 500 ML IV ONE (10:39)
[2020-07-30] MEDS ORDERED: NALOXONE 0.4 MG/ML VIAL IVP ONE (10:53)
[2020-07-30] MEDS ORDERED: FUROSEMIDE 40 MG/4 ML VIAL IVP SCH (14:00)
[2020-07-30] MEDS ORDERED: NALOXONE 0.4 MG/ML VIAL IVP STA (14:17)
[2020-07-30] MEDS: ACETAMINOPHEN 325 MG TABLET PO PRN (17:26)
--- NOTE | 2020-07-30 17:43 | CT Report ---
PROCEDURE: Head W/O Stroke Protocol INDICATIONS: Obtundation TECHNIQUE: Noncontrast 4.5 mm thick angled axial sections acquired from the foramen magnum to the vertex, with c oronal reformats. For radiation dose reduction, the following was used: automated exposure control, adjustment of mA and/or kV according to patient size. COMPARISON: 09/03/2007 FINDINGS: Image quality: Motion artifact is noted. Images were repeated, with some improvement. CSF spaces: Basal cisterns are patent. No extra-axial fluid collections. Ventricles are normal in size and shape. Brain: No midline shift. No intracranial masses or hemorrhage. Buenrostro-white matter interface is norm al. Focal volume loss can be seen involving the inferior right cerebellum. Skull and face: Calvarium and visualized facial bones are intact, without suspicious lesions. Sinuses: Visualized sinuses and mastoids are clear. IMPRESSION: No acute intracranial hemorrhage can be seen. No chepe acute CT findings of stroke can be seen. If there is strong clinical concern for a stroke, please consider a dedicated brain MRI for further e valuation (assuming that there is no contraindication to MRI). Remote right cerebellar infarction. Note: Case discussed by telephone with Dr. Ava Johnston at 4:40 PM [place] time on 07/30/2020. This study fulfills neurological imaging criteria for inclusion or exclusion of acute stroke therapie s based on available published neurological imaging guidelines. Reviewed by: Mike Byers MD on 07/30/2020 4:42 PM [place] Approved by: Mike Byers MD on 07/30/2020 4:42 PM [place] Station ID: [id number]
[2020-07-30] MEDS ORDERED: HYDROcod/ACETAM 5/325 MG TABLET PO PRN (19:32)
[2020-07-30] MEDS: METOPROLOL SUCCINATE 25 MG TABLET PO SCH (22:15)
[2020-07-31] MEDS: CALCIUM CARBONATE CHEW 500 MG TABLET PO PRN (00:45)
[2020-07-31] MEDS: SODIUM CHLORIDE FLUSH 0.9% 10 ML SYRINGE IVP SCH ×3 (00:46→17:18)
[2020-07-31] MEDS: FUROSEMIDE 40 MG/4 ML VIAL IVP SCH ×2 (06:30→14:13)
[2020-07-31] MEDS: GABAPENTIN 100 MG CAPSULE PO SCH ×2 (06:49→14:13)
[2020-07-31] MEDS: ENOXAPARIN 40 MG/0.4 ML SYRINGE SUBQ SCH ×2 (09:17→21:41)
[2020-07-31] MEDS: polyethylene glycoL 3350 17 GM PACKET PO SCH (09:17)
[2020-07-31] MEDS: METOPROLOL SUCCINATE 25 MG TABLET PO SCH ×2 (09:18→21:47)
[2020-07-31] MEDS: allopurinoL 100 MG TABLET PO SCH (09:18)
[2020-07-31] MEDS: FERROUS GLUCONATE 324 MG TABLET PO SCH (09:18)
[2020-07-31] MEDS: NYSTATIN POWDER 15 GM TOP SCH ×2 (09:18→21:47)
[2020-07-31] MEDS: MULTIVITAMIN TABLET PO SCH (09:18)
[2020-07-31] MEDS: ASPIRIN CHEW 81 MG TABLET PO SCH (09:18)
[2020-07-31] MEDS: prednisoLONE 1% OPHTH DROPS 75 DROPS/5 ML BOTTLE EACHEYE SCH ×2 (09:20→21:48)
[2020-07-31] MEDS: LACTOBACILLUS RHAMNOSUS GG CAPSULE PO SCH (09:20)
[2020-07-31] MEDS: DOCUSATE SODIUM 250 MG CAPSULE PO SCH (09:20)
[2020-07-31 10:19] LABS: CALCIUM 8.1 mg/dL (8.5-10.3)
--- NOTE | 2020-07-31 12:11 | PROVIDER PROGRESS NOTE ---
Assessment/Plan - Problem List (1) Anasarca Assessment/Plan: The previous 2 days she had minimal positive fluid balance. Last 24 hours has been again negative fluid balance and she is overall -6 kg, about 14 pounds. Her diuretic had to be on hold yesterday because of hypotension yesterday. Her diuresis is also difficult to achieve because of hypoalbuminemia and cor pulmonale, both of which create fluid leak into the tissues and more anasarca. Continue with IV diuretic while here. We will plan to discharge back to her senior care approx on Sunday on oral diuretics. (2) Acute on chronic diastolic heart failure Assessment/Plan: As per history. (3) Cor pulmonale Assessment/Plan: As per history. She is fluid sensitive, drops blood pressure if overdiuresis, has leg edema and anasarca if fluid overloaded (4) COVID-19 Assessment/Plan: As per history. She is about on day 11 since testing positive. She received 1 day of remdesivir and Decadron but did not have severe symptoms to indicate continuation with that treatment. When she was discharged back to her senior care, [facility] is creating a oden for Covid positive patients. (5) Chronic respiratory failure with hypoxia Assessment/Plan: She is on chronic 2 L O2 per nasal cannula 19/02. The hope is that supplemental O2 could be decreased or illuminated as she was d iuresed, but her diuresis is difficult because of hypoalbuminemia and cor pulmonale. (6) Venous stasis ulcers of both lower extremities Assessment/Plan: These are being changed by nursing. General surgery consult was done by Dr. Workman and he recommended this treatment, no debridement was needed. (7) Chronic atrial fibrillation Assessment/Plan: Heart rate is under control on her metoprolol. She is on a baby aspirin for stroke prophylaxis, her anticoagulation was stopped in mid 2019 because of a GI bleed (8) Fibromyalgia Assessment/Plan: Continue with pain meds prn and arthritis gel topically. I have asked pharmacist to look at her pain meds, in order to decrease narcotics which caused hypersomnolence the past 2 days. The pharmacist's recommendations will be followed: * Optimize gabapentin therapy (patient may take up to 1400mg/day with current renal function). Consider increasing from 200mg TID to 300mg BID & 400mg HS * Maximize non-opioid analgesic, targeting both fibromyalgic and osteoarthritic pain 650mg QID * If opioid desired, consider changing to Tramadol (maximum dose of 75mg QID) starting at 50mg TID (with gabapentin), or 25mg QID (with acetaminophen). (9) Anemia Qualifiers: Anemia type: iron deficiency Assessment/Plan: He is getting oral iron replacement (10) Morbid obesity Assessment/Plan: As per Hx. She is bedbound. (11) V-tach Assessment/Plan: None further. It was felt to be due to electrolyte shifts while getting diuresis. Sreum Potassium and Magnesium were normal however (12) Elevated troponin Assessment/Plan: Is were elevated but flat. [place] to be from her CHF (13) Hypotension Assessment/Plan: Resolved with 1 fluid push of 500 cc yesterday and given her Narcan twice to reverse the codeine affect. (14) Hypersomnolence disorder, acute Assessment/Plan: After getting a codeine 10 mg dose 3 days ago, she was sleeping for the next 2- 1/2 days. Narcan was given yesterday with minimal effect. CT scan of the head done yesterday showed no stroke or acute changes. Yesterday evening she woke up and back to her normal self. - Current Meds Current Meds: Current Medications Generic Name Dose Route Start Last Admin Trade Name [place] PRN Reason Stop Dose Admin Acetaminophen 650 mg 07/22/20 17:37 07/30/20 17:26 Acetaminophen 325 Mg Tablet PO 650 mg Q4HR PRN Administration Pain 1 to 4 Allopurinol 100 mg 07/24/20 09:00 07/31/20 09:18 Allopurinol 100 Mg Tablet PO 100 mg DAILY KEAGAN Administration Aspirin 81 mg 07/27/20 09:00 07/31/20 09:18 Aspirin Chew 81 Mg Tablet PO 81 mg DAILY KEAGAN Administration Calcium Carbonate/Glycine 500 mg 07/23/20 16:28 07/31/20 00:45 Calcium Carbonate Chew 500 Mg Tablet PO 500 mg BID PRN Administration Heartburn Docusate Sodium 250 - 500 mg 07/29/20 21:00 07/31/20 09:20 Docusate Sodium 250 Mg Capsule PO 250 mg DAILY KEAGAN Administration Enoxaparin Sodium 40 mg 07/25/20 21:00 07/31/20 09:17 Enoxaparin 40 Mg/0.4 Ml Syringe SUBQ 40 mg BID KEAGAN Administration Ferrous Gluconate 324 mg 07/28/20 12:00 07/31/20 09:18 Ferrous Gluconate 324 Mg Tablet PO 324 mg DAILYWM KEAGAN Administration Furosemide 40 mg 07/30/20 10:00 07/31/20 06:30 Furosemide 40 Mg/4 Ml Vial IVP Not Given BIDDIURETIC KEAGAN Gabapentin 200 mg 07/23/20 14:00 07/31/20 06:49 Gabapentin 100 Mg Capsule PO 200 mg TID KEAGAN Administration Lactobacillus Rhamnosus 1 cap 07/28/20 09:00 07/31/20 09:20 Lactobacillus Rhamnosus Gg Capsule PO 1 cap DAILY KEAGAN Administration Metoprolol Succinate 25 mg 07/30/20 09:08 07/31/20 09:18 Metoprolol Succinate 25 Mg Tablet PO 25 mg BID KEAGAN Administration Mineral Oil 1 applic 07/23/20 04:25 07/28/20 14:24 Min Oil/Dimethicon/Coconut Oil 92 Gm Tube TOP 1 applic PRN PRN Administration Skin Care Multivitamins 1 tab 07/24/20 08:00 07/31/20 09:18 Multivitamin Tablet PO 1 tab DAILYWM KEAGAN Administration Nystatin 1 applic 07/23/20 09:00 07/31/20 09:18 Nystatin Powder 15 Gm TOP 1 applic BID KEAGAN Administration Polyethylene Glycol 17 gm 07/23/20 09:00 07/31/20 09:17 Polyethylene Glycol 3350 17 Gm Packet PO 17 gm DAILY KEAGAN Administration Prednisolone 1 drops 07/28/20 12:00 07/31/20 09:20 Prednisolone 1% Ophth Drops 75 Drops/5 Ml Bottle EACHEYE 1 drops BID KEAGAN Administration Senna 8.6 mg 07/23/20 11:37 07/29/20 09:23 Senna 8.6 Mg Tablet PO 8.6 mg DAILY PRN Administration Constipation Sodium Chloride 10 ml 07/23/20 01:00 07/31/20 09:18 Sodium Chloride Flush 0.9% 10 Ml Syringe IVP 10 ml 0100,0900,1700 KEAGAN Administration - Lab Result Fish Bone Diagrams: 07/30/20 08:22 07/31/20 10:00 - Additional Planning My Orders: My Active Orders 08/01/20 05:00 BMP - BASIC METABOLIC PANEL [CHEM] DAILYLAB Subjective - Subjective Patient Reports: Feeling Better Nursing Reports: Other (She is awake, alert, able to feed herself, talking like she was 3 days ago) Objective Vital Signs: Vital Signs - 24 hr 07/30/20 07/30/20 07/30/20 13:00 15:04 17:00 Temperature 36.8 C 36.4 C L Heart Rate [ 80 Brachial] Heart Rate [ 77 Monitoring electrodes] Heart Rate [ 74 Radial] Respiratory 21 20 20 Rate Blood Pressure 119/75 109/64 106/69 [Right Radial artery] O2 Saturation 91 L 98 96 07/30/20 07/30/20 07/31/20 19:45 22:16 00:43 Temperature 36.7 C 36.5 C Heart Rate [ 70 78 Brachial] Heart Rate [ Monitoring electrodes] Heart Rate [ 76 Radial] Respiratory 20 18 Rate Blood Pressure 95/53 L 107/60 112/95 H [Right Radial artery] O2 Saturation 95 97 07/31/20 07/31/20 07/31/20 06:26 09:15 11:53 Temperature 36.8 C 37 C 36.8 C Heart Rate [ Brachial] Heart Rate [ Monitoring electrodes] Heart Rate [ 78 96 87 Radial] Respiratory 17 20 20 Rate Blood Pressure 101/60 118/63 114/71 [Right Radial artery] O2 Saturation 93 91 L 93 Oxygen O2 Source Nasal cannula Oxygen Flow Rate 5 I&O (Last 24 Hrs): Intake and Output Totals x24h 07/29/20 07/30/20 07/31/20 23:59 23:59 23:59 Intake Total 1140 1245 460 Output Total 1000 700 500 Balance 140 545 -40 General: Alert, Oriented x3 HEENT: Mucous membr. moist/pink Neck: Other (Ecchymoses seen on the right neck area, she has a very large double chin, cannot rule out JVD) Neuro: Alert, Non Focal Cardiovascular: Other (Irreg irreg) Respiratory: No respiratory distress, Other (Wearing O2 per nasal) Abdomen: Other (Obese with a large pannus nearly down to her knee) Extremities: Other (2+ pitting edema to the upper thighs) - Results Results: Laboratory Results WBC 7.4 x10^3/uL (4.8-10.8) 07/30/20 08:22 RBC 2.94 10^6/uL (4.20-5.40) L 07/30/20 08:22 Hgb 9.3 g/dL (12.0-16.0) L 07/30/20 08:22 Hct 29.4 % (37.0-47.0) L 07/30/20 08:22 MCV 100.0 fL (81.0-99.0) H 07/30/20 08:22 MCH 31.6 pg (27.0-31.0) H 07/30/20 08:22 MCHC 31.6 g/dL (32.0-36.0) L 07/30/20 08:22 RDW 20.2 % (12.0-15.0) H 07/30/20 08:22 Plt Count 197 10^3/uL (130-450) 07/30/20 08:22 MPV 10.7 fL (7.9-10.8) 07/30/20 08:22 Neut # (Auto) 4.4 10^3/uL (1.5-6.6) 07/27/20 05:25 Lymph # (Auto) 1.8 10^3/uL (1.5-3.5) 07/27/20 05:25 [place] # (Auto) 0.5 10^3/uL (0.0-1.0) 07/27/20 05:25 Eos # (Auto) 0.2 10^3/uL (0.0-0.7) 07/27/20 05:25 Baso # (Auto) 0.0 10^3/uL (0.0-0.1) 07/27/20 05:25 Absolute Nucleated RBC 0.00 x10^3/uL 07/27/20 05:25 Nucleated RBC % 0.0 /100WBC 07/27/20 05:25 WBC Morphology NORMAL APPEARANCE (NORMAL) 07/22/20 16:18 Platelet Estimate NORMAL (130-450,000) (NORMAL) 07/22/20 16:18 Platelet Morphology NORMAL APPEARANCE (NORMAL) 07/22/20 16:18 RBC Morph Micro Appear 3+ ANISOCYTOSIS (NORMAL) 1+ MACROCYTOSIS (NORMAL) 1+ POLYCHROMASIA (NORMAL) 07/22/20 16:18 RBC Morph Micro Appear 3+ ANISOCYTOSIS (NORMAL) 1+ MACROCYTOSIS (NORMAL) 1+ POLYCHROMASIA (NORMAL) 07/22/20 16:18 RBC Morph Micro Appear 3+ ANISOCYTOSIS (NORMAL) 1+ MACROCYTOSIS (NORMAL) 1+ POLYCHROMASIA (NORMAL) 07/22/20 16:18 ESR 45 mm/Hr (0-30) H 07/22/20 16:18 PT 15.6 secs (9.9-12.6) H 07/22/20 16:18 INR 1.4 (0.8-1.2) H 07/22/20 16:18 APTT 31.3 secs (24.9-33.3) 07/22/20 16:18 D-Dimer 427.4 ng/mL (200.0-255.0) H 07/22/20 16:18 VBG pH 7.421 (7.31-7.41) H 07/22/20 16:18 VBG pCO2 59.8 mmHg (41-51) H 07/22/20 16:18 VBG pO2 59.0 mmHg (25-47) H 07/22/20 16:18 VBG HCO3 38.0 mmol/L (23-28) H 07/22/20 16:18 VBG Total CO2 39.8 mmol/L (24-29) H 07/22/20 16:18 VBG O2 Saturation 90.0 % (60-80) H 07/22/20 16:18 VBG Base Excess 11.6 mmol/L (-2 - +2) H 07/22/20 16:18 Sodium 136 mmol/L (135-145) 07/31/20 10:00 Potassium 3.6 mmol/L (3.5-5.0) 07/31/20 10:00 Chloride 89 mmol/L (101-111) L 07/31/20 10:00 Carbon Dioxide 36 mmol/L (21-32) H 07/31/20 10:00 Anion Gap 11.0 (6-13) 07/31/20 10:00 BUN 36 mg/dL (6-20) H 07/31/20 10:00 Creatinine 1.0 mg/dL (0.4-1.0) 07/31/20 10:00 Estimated GFR (MDRD) 53 (>89) L 07/31/20 10:00 Glucose 84 mg/dL (70-100) 07/31/20 10:00 Lactic Acid 1.5 mmol/L (0.5-2.2) 07/22/20 16:18 Calcium 8.1 mg/dL (8.5-10.3) L 07/31/20 10:00 Phosphorus 2.7 mg/dL (2.5-4.6) 07/27/20 05:25 Magnesium 1.9 mg/dL (1.7-2.8) 07/27/20 11:17 Iron 31 ug/dL (28-170) 07/28/20 05:19 TIBC 237 ug/dL (250-450) L 07/28/20 05:19 % Saturation 13 % (20-50) L 07/28/20 05:19 Transferrin 169 mg/dL (192-382) L 07/28/20 05:19 Total Bilirubin 1.5 mg/dL (0.2-1.0) H 07/30/20 08:22 AST 62 IU/L (10-42) H 07/30/20 08:22 ALT 19 IU/L (10-60) 07/30/20 08:22 Alkaline Phosphatase 268 IU/L (42-121) H 07/30/20 08:22 Troponin I High Sens 49.1 ng/L (2.3-14.8) H* 07/27/20 11:17 C-Reactive Protein 3.7 mg/dL (0-1.0) H 07/22/20 16:18 B-Natriuretic Peptide 774 pg/mL (5-100) H 07/25/20 04:15 Total Protein 5.4 g/dL (6.7-8.2) L 07/30/20 08:22 Albumin 1.8 g/dL (3.2-5.5) L 07/30/20 08:22 Globulin 3.6 g/dL (2.1-4.2) 07/30/20 08:22 Albumin/Globulin Ratio 0.5 (1.0-2.2) L 07/30/20 08:22 Lipase 26 U/L (22-51) 07/22/20 16:18 Vitamin B12 341 pg/mL (180-914) 07/28/20 05:19 Folate 11.11 ng/mL (5.90 - >24.8) 07/28/20 05:19 Nasal Screen MRSA (PCR) NEGATIVE (NEGATIVE) 07/22/20 20:55
[2020-07-31] MEDS: GABAPENTIN 300 MG CAPSULE PO SCH (17:14)
[2020-07-31] MEDS: ACETAMINOPHEN 325 MG TABLET PO SCH ×2 (17:14→21:46)
[2020-07-31] MEDS: MIN OIL/DIMETHICON/COCONUT OIL 92 GM TUBE TOP PRN (21:45)
[2020-07-31] MEDS: GABAPENTIN 400 MG CAPSULE PO SCH (21:47)
[2020-08-01] MEDS: SODIUM CHLORIDE FLUSH 0.9% 10 ML SYRINGE IVP SCH ×3 (01:00→17:40)
[2020-08-01 06:07] LABS: CALCIUM 7.8 mg/dL (8.5-10.3); CREATININE 0.9 mg/dL (0.4-1.0)
[2020-08-01] MEDS: FUROSEMIDE 40 MG/4 ML VIAL IVP SCH (06:24)
[2020-08-01] MEDS ORDERED: POTASSIUM CHLORIDE 20 MEQ TABLET PO SCH (08:37)
[2020-08-01] MEDS: polyethylene glycoL 3350 17 GM PACKET PO SCH (08:38)
[2020-08-01] MEDS: FERROUS GLUCONATE 324 MG TABLET PO SCH (08:38)
[2020-08-01] MEDS: DOCUSATE SODIUM 250 MG CAPSULE PO SCH (08:39)
[2020-08-01] MEDS: ASPIRIN CHEW 81 MG TABLET PO SCH (08:39)
[2020-08-01] MEDS: ACETAMINOPHEN 325 MG TABLET PO SCH ×4 (08:39→22:18)
[2020-08-01] MEDS: allopurinoL 100 MG TABLET PO SCH (08:39)
[2020-08-01] MEDS: LACTOBACILLUS RHAMNOSUS GG CAPSULE PO SCH (08:39)
[2020-08-01] MEDS: ENOXAPARIN 40 MG/0.4 ML SYRINGE SUBQ SCH ×2 (08:40→22:18)
[2020-08-01] MEDS: NYSTATIN POWDER 15 GM TOP SCH ×2 (08:40→22:17)
[2020-08-01] MEDS: METOPROLOL SUCCINATE 25 MG TABLET PO SCH ×2 (08:40→22:18)
[2020-08-01] MEDS: MULTIVITAMIN TABLET PO SCH (08:40)
[2020-08-01] MEDS: prednisoLONE 1% OPHTH DROPS 75 DROPS/5 ML BOTTLE EACHEYE SCH ×2 (08:40→22:19)
[2020-08-01] MEDS: GABAPENTIN 300 MG CAPSULE PO SCH ×2 (08:40→17:39)
--- NOTE | 2020-08-01 16:09 | PROVIDER PROGRESS NOTE ---
Assessment/Plan - Problem List (1) Anasarca Assessment/Plan: Continue with IV Lasix today, will change to p.o. Lasix tomorrow and plan discharge back to her half-way tomorrow. (2) Acute on chronic diastolic heart failure Assessment/Plan: As per history (3) Cor pulmonale Assessment/Plan: Per echo done this admission. This will make her very fluid sensitive; overdiuresis will drop her blood pressure, under diuresis will cause anasarca (4) COVID-19 Assessment/Plan: 1 dose of remdesivir and Decadron, she had minimal pulmonary symptoms. She is returning back to her half-way tomorrow, a Covid unit is being established there. Continue with supportive care (5) Chronic respiratory failure with hypoxia Assessment/Plan: She was on 2 L O2 per nasal cannula and will continue on this (6) Venous stasis ulcers of both lower extremities Assessment/Plan: Continue with topical dressing changes. No debridement was needed as per the general surgery consult done earlier this admission. Plan to have her followed in [facility] wound clinic after the discharge (7) Chronic atrial fibrillation Assessment/Plan: Heart rate is controlled on metoprolol. She is on aspirin for stroke prophylaxis, Coumadin was stopped in mid 2019 because of a GI bleed (8) Fibromyalgia Assessment/Plan: Pain management was adjusted during this admission; gabapentin increased especially at at bedtime and Tylenol used scheduled. Narcotics have been stopped as they led to hypersomnolence (9) Anemia Qualifiers: Anemia type: iron deficiency Assessment/Plan: Iron replacement started and will be discharged on this. (10) Morbid obesity Assessment/Plan: As per history. (11) V-tach Assessment/Plan: None further. Her meds are now stable. We will stop telemetry (12) Elevated troponin Assessment/Plan: These were flat, felt to be due to her CHF (13) Hypotension Assessment/Plan: Resolved after reversal of narcotics with Narcan and a fluid bolus and holding her Metoprolol and Lasix temporarily (14) Hypersomnolence disorder, acute Assessment/Plan: Solved with Narcan reversing her codeine and discontinuation of meds that contain codeine - Current Meds Current Meds: Current Medications Generic Name Dose Route Start Last Admin Trade Name Freq PRN Reason Stop Dose Admin Acetaminophen 650 mg 07/31/20 17:00 08/01/20 14:06 Acetaminophen 325 Mg Tablet PO 650 mg QID KEAGAN Administration Allopurinol 100 mg 07/24/20 09:00 08/01/20 08:39 Allopurinol 100 Mg Tablet PO 100 mg DAILY KEAGAN Administration Aspirin 81 mg 07/27/20 09:00 08/01/20 08:39 Aspirin Chew 81 Mg Tablet PO 81 mg DAILY KEAGAN Administration Calcium Carbonate/Glycine 500 mg 07/23/20 16:28 07/31/20 00:45 Calcium Carbonate Chew 500 Mg Tablet PO 500 mg BID PRN Administration Heartburn Docusate Sodium 250 - 500 mg 07/29/20 21:00 08/01/20 08:39 Docusate Sodium 250 Mg Capsule PO 250 mg DAILY KEAGAN Administration Enoxaparin Sodium 40 mg 07/25/20 21:00 08/01/20 08:40 Enoxaparin 40 Mg/0.4 Ml Syringe SUBQ 40 mg BID KEAGAN Administration Ferrous Gluconate 324 mg 07/28/20 12:00 08/01/20 08:38 Ferrous Gluconate 324 Mg Tablet PO 324 mg DAILYWM KEAGAN Administration Gabapentin 400 mg 07/31/20 21:00 07/31/20 21:47 Gabapentin 400 Mg Capsule PO 400 mg QPM KEAGAN Administration Gabapentin 300 mg 07/31/20 17:00 08/01/20 08:40 Gabapentin 300 Mg Capsule PO 300 mg 0900,1700 KEAGAN Administration Lactobacillus Rhamnosus 1 cap 07/28/20 09:00 08/01/20 08:39 Lactobacillus Rhamnosus Gg Capsule PO 1 cap DAILY KEAGAN Administration Metoprolol Succinate 25 mg 07/30/20 09:08 08/01/20 08:40 Metoprolol Succinate 25 Mg Tablet PO 25 mg BID KEAGAN Administration Mineral Oil 1 applic 07/23/20 04:25 07/31/20 21:45 Min Oil/Dimethicon/Coconut Oil 92 Gm Tube TOP 1 applic PRN PRN Administration Skin Care Multivitamins 1 tab 07/24/20 08:00 08/01/20 08:40 Multivitamin Tablet PO 1 tab DAILYWM KEAGAN Administration Nystatin 1 applic 07/23/20 09:00 08/01/20 08:40 Nystatin Powder 15 Gm TOP 1 applic BID KEAGAN Administration Polyethylene Glycol 17 gm 07/23/20 09:00 08/01/20 08:38 Polyethylene Glycol 3350 17 Gm Packet PO 17 gm DAILY KEAGAN Administration Prednisolone 1 drops 07/28/20 12:00 08/01/20 08:40 Prednisolone 1% Ophth Drops 75 Drops/5 Ml Bottle EACHEYE 1 drops BID KEAGAN Administration Senna 8.6 mg 07/23/20 11:37 07/29/20 09:23 Senna 8.6 Mg Tablet PO 8.6 mg DAILY PRN Administration Constipation Sodium Chloride 10 ml 07/23/20 01:00 08/01/20 06:25 Sodium Chloride Flush 0.9% 10 Ml Syringe IVP 10 ml 0100,0900,1700 KEAGAN Administration - Lab Result Fish Bone Diagrams: 07/30/20 08:22 08/01/20 05:49 - Additional Planning My Orders: My Active Orders 07/31/20 17:00 Acetaminophen [Tylenol] 650 mg PO QID Gabapentin [Neurontin] 300 mg PO 0900,1700 07/31/20 21:00 Gabapentin [Neurontin] 400 mg PO QPM 08/01/20 10:06 Telemetry-Discontinue [RC] .ONCE 08/02/20 05:00 BMP - BASIC METABOLIC PANEL [CHEM] DAILYLAB MAGNESIUM [CHEM] DAILYLAB 08/02/20 08:00 Potassium Chloride [K-Dur] 20 meq PO DAILYWM 08/02/20 09:00 Furosemide [Lasix] 40 mg PO DAILY Subjective - Subjective Patient Reports: Feeling Better Nursing Reports: No Complaints Objective Vital Signs: Vital Signs - 24 hr 07/31/20 08/01/20 08/01/20 21:00 01:00 04:33 Temperature 37.0 C 36.5 C 36.5 C Heart Rate [ 98 69 76 Radial] Respiratory 20 18 20 Rate Blood Pressure 118/54 L 96/57 L 102/58 L [Right Radial artery] O2 Saturation 92 94 95 08/01/20 08/01/20 08/01/20 06:27 08:37 14:07 Temperature 36.6 C 37 C Heart Rate [ 83 Radial] Respiratory 20 18 Rate Blood Pressure 105/71 110/51 L 117/66 [Right Radial artery] O2 Saturation 92 92 Oxygen O2 Source Nasal cannula Oxygen Flow Rate 5 I&O (Last 24 Hrs): Intake and Output Totals x24h 07/30/20 07/31/20 08/01/20 23:59 23:59 23:59 Intake Total 1245 1430 520 Output Total 700 2000 500 Balance 545 -570 20 General: Alert HEENT: Mucous membr. moist/pink, Other (Pale) Neck: Other (Very large second chin, cannot rule out JVD. She has a right sided neck eccymosis) Neuro: Alert, Non Focal Cardiovascular: Regular rate Respiratory: No respiratory distress, Other (wearing O2 per n.c.) Abdomen: Soft, Other (Obese with a very large pannus newly downturn) Extremities: No edema, Other (Both shins are bandaged) - Results Results: Laboratory Results WBC 7.4 x10^3/uL (4.8-10.8) 07/30/20 08:22 RBC 2.94 10^6/uL (4.20-5.40) L 07/30/20 08:22 Hgb 9.3 g/dL (12.0-16.0) L 07/30/20 08:22 Hct 29.4 % (37.0-47.0) L 07/30/20 08:22 MCV 100.0 fL (81.0-99.0) H 07/30/20 08:22 MCH 31.6 pg (27.0-31.0) H 07/30/20 08:22 MCHC 31.6 g/dL (32.0-36.0) L 07/30/20 08:22 RDW 20.2 % (12.0-15.0) H 07/30/20 08:22 Plt Count 197 10^3/uL (130-450) 07/30/20 08:22 MPV 10.7 fL (7.9-10.8) 07/30/20 08:22 Neut # (Auto) 4.4 10^3/uL (1.5-6.6) 07/27/20 05:25 Lymph # (Auto) 1.8 10^3/uL (1.5-3.5) 07/27/20 05:25 [place] # (Auto) 0.5 10^3/uL (0.0-1.0) 07/27/20 05:25 Eos # (Auto) 0.2 10^3/uL (0.0-0.7) 07/27/20 05:25 Baso # (Auto) 0.0 10^3/uL (0.0-0.1) 07/27/20 05:25 Absolute Nucleated RBC 0.00 x10^3/uL 07/27/20 05:25 Nucleated RBC % 0.0 /100WBC 07/27/20 05:25 WBC Morphology NORMAL APPEARANCE (NORMAL) 07/22/20 16:18 Platelet Estimate NORMAL (130-450,000) (NORMAL) 07/22/20 16:18 Platelet Morphology NORMAL APPEARANCE (NORMAL) 07/22/20 16:18 RBC Morph Micro Appear 3+ ANISOCYTOSIS (NORMAL) 1+ MACROCYTOSIS (NORMAL) 1+ POLYCHROMASIA (NORMAL) 07/22/20 16:18 RBC Morph Micro Appear 3+ ANISOCYTOSIS (NORMAL) 1+ MACROCYTOSIS (NORMAL) 1+ POLYCHROMASIA (NORMAL) 07/22/20 16:18 RBC Morph Micro Appear 3+ ANISOCYTOSIS (NORMAL) 1+ MACROCYTOSIS (NORMAL) 1+ POLYCHROMASIA (NORMAL) 07/22/20 16:18 ESR 45 mm/Hr (0-30) H 07/22/20 16:18 PT 15.6 secs (9.9-12.6) H 07/22/20 16:18 INR 1.4 (0.8-1.2) H 07/22/20 16:18 APTT 31.3 secs (24.9-33.3) 07/22/20 16:18 D-Dimer 427.4 ng/mL (200.0-255.0) H 07/22/20 16:18 VBG pH 7.421 (7.31-7.41) H 07/22/20 16:18 VBG pCO2 59.8 mmHg (41-51) H 07/22/20 16:18 VBG pO2 59.0 mmHg (25-47) H 07/22/20 16:18 VBG HCO3 38.0 mmol/L (23-28) H 07/22/20 16:18 VBG Total CO2 39.8 mmol/L (24-29) H 07/22/20 16:18 VBG O2 Saturation 90.0 % (60-80) H 07/22/20 16:18 VBG Base Excess 11.6 mmol/L (-2 - +2) H 07/22/20 16:18 Sodium 136 mmol/L (135-145) 08/01/20 05:49 Potassium 3.4 mmol/L (3.5-5.0) L 08/01/20 05:49 Chloride 92 mmol/L (101-111) L 08/01/20 05:49 Carbon Dioxide 36 mmol/L (21-32) H 08/01/20 05:49 Anion Gap 8.0 (6-13) 08/01/20 05:49 BUN 35 mg/dL (6-20) H 08/01/20 05:49 Creatinine 0.9 mg/dL (0.4-1.0) 08/01/20 05:49 Estimated GFR (MDRD) 60 (>89) L 08/01/20 05:49 Glucose 78 mg/dL (70-100) 08/01/20 05:49 Lactic Acid 1.5 mmol/L (0.5-2.2) 07/22/20 16:18 Calcium 7.8 mg/dL (8.5-10.3) L 08/01/20 05:49 Phosphorus 2.7 mg/dL (2.5-4.6) 07/27/20 05:25 Magnesium 1.9 mg/dL (1.7-2.8) 07/27/20 11:17 Iron 31 ug/dL (28-170) 07/28/20 05:19 TIBC 237 ug/dL (250-450) L 07/28/20 05:19 % Saturation 13 % (20-50) L 07/28/20 05:19 Transferrin 169 mg/dL (192-382) L 07/28/20 05:19 Total Bilirubin 1.5 mg/dL (0.2-1.0) H 07/30/20 08:22 AST 62 IU/L (10-42) H 07/30/20 08:22 ALT 19 IU/L (10-60) 07/30/20 08:22 Alkaline Phosphatase 268 IU/L (42-121) H 07/30/20 08:22 Troponin I High Sens 49.1 ng/L (2.3-14.8) H* 07/27/20 11:17 C-Reactive Protein 3.7 mg/dL (0-1.0) H 07/22/20 16:18 B-Natriuretic Peptide 774 pg/mL (5-100) H 07/25/20 04:15 Total Protein 5.4 g/dL (6.7-8.2) L 07/30/20 08:22 Albumin 1.8 g/dL (3.2-5.5) L 07/30/20 08:22 Globulin 3.6 g/dL (2.1-4.2) 07/30/20 08:22 Albumin/Globulin Ratio 0.5 (1.0-2.2) L 07/30/20 08:22 Lipase 26 U/L (22-51) 07/22/20 16:18 Vitamin B12 341 pg/mL (180-914) 07/28/20 05:19 Folate 11.11 ng/mL (5.90 - >24.8) 07/28/20 05:19 Nasal Screen MRSA (PCR) NEGATIVE (NEGATIVE) 07/22/20 20:55
[2020-08-01] MEDS: MIN OIL/DIMETHICON/COCONUT OIL 92 GM TUBE TOP PRN (22:17)
[2020-08-01] MEDS: GABAPENTIN 400 MG CAPSULE PO SCH (22:18)
[2020-08-02] MEDS: SODIUM CHLORIDE FLUSH 0.9% 10 ML SYRINGE IVP SCH ×2 (04:15→08:42)
[2020-08-02 04:44] LABS: CALCIUM 7.7 mg/dL (8.5-10.3); MAGNESIUM 2.2 mg/dL (1.7-2.8)
[2020-08-02] MEDS ORDERED: FUROSEMIDE 40 MG/4 ML VIAL IVP SCH (06:00)
[2020-08-02] MEDS ORDERED: POTASSIUM CHLORIDE 20 MEQ TABLET PO SCH (08:00)
--- NOTE | 2020-08-02 08:21 | Discharge Plan ---
"Discharge Plan for SNF / [facility] - Discharge Plan And Transition Orders Problem Reviewed?: Yes Disposition: 03 SNF DC/Xfer Condition: Stable Allergies and Adverse Reactions: Allergies Allergy/AdvReac Type Severity Reaction Status Date / Time Latex, Natural Rubber Allergy Unknown Verified 07/22/20 17:05 mupirocin Allergy Rash Verified 07/22/20 17:05 silver Allergy Rash Verified 07/22/20 17:05 methotrexate AdvReac Headache Verified 07/22/20 17:05 Health Concerns: She was admitted to the intensive care unit for acute on chronic hypoxic respiratory failure and hypotension. The concern initially was for a new and worsening COVID-19 infection as well as acute on chronic congestive heart failure. She was given Remdesivir and Decadron in the emergency department. She did have an elevated D-dimer and a CT angiogram was obtained which was negative for pulmonary embolism. The findings were more consistent with CHF and pulmonary edema although viral pneumonia could be ruled out. Shortly after arrival to the intensive care unit, she was back to her baseline 2 L of oxygen. She was treated with 40 mg of Lasix IV b.i.d. with improvement in her dyspnea. Her blood pressures were soft with systolics in the 90s to low 100s and at times dropping to the 80s. She did not show any evidence of hypoperfusion and her renal function remained stable as well as her mental status. She was not continued on Remdesivir and Decadron given it was felt that her initial hypoxia was likely related to heart failure rather than worsening COVID-19 infection. Her imaging was also more consistent with pulmonary edema. She was diuresed further with iv Lasix. She remained stable on 2 L of oxygen which is her baseline. She still does have significant lower extremity edema likely related to her cor pulmonale and a component of venous stasis. She again had low blood pressure in the 80s and 90s and was also very somnolent. A head CT was done to rule out stroke and showed no acute findings. It was felt to be due to codeine dose increase. Narcan was given for reversal resulting in improvement in alertness and blood pressure, and her management of fibromyalgia and osteoarthritis was changed. During this hospitalization she was also started on iron for iron deficiency anemia. For her chronic A. fib, the Metoprolol was continued and since Coumadin was stopped in mid for a GI bleed, she is now on baby aspirin daily. Plan of Treatment: Continue diuresis; some of her meds have been changed. Care Goals: Improvement in symptoms and stabilization are the goals. Assessment: The patient understands the plan. He is being discharged back to her retirement. - SNF / [facility] Transition Orders Admit to (Facility): [facility] Under the care of (Name): Dr Jose Solano Discharge Diagnosis: (1) Anasarca (2) Acute on chronic diastolic heart failure (3) Cor pulmonale (4) COVID-19 positive The positive results were from before this hospitalization (5) Chronic respiratory failure with hypoxia She remains on 2L O2 per nasal cannula (6) Venous stasis ulcers of both lower extremities She was seen in consultation by General Surgery, debridement was not needed. Daily dressing changes were recommended. Consider follow-up in [facility] wound clinic going forward. (7) Chronic atrial fibrillation (8) Fibromyalgia (9) Anemia, iron deficiency (10) Morbid obesity (11) V-tach, non-sustained [place] to be due to fluid shifts from diuresis (12) Elevated troponin These were flat, felt to be due to her CHF (13) Hypotension Resolved after reversal of narcotic effect with Narcan (14) Hypersomnolence disorder Was caused by codeine use Medicare Certification Statement: I certify that [facility] care is medically necessary on a continuing basis for any of the conditions for which she/he is receiving care during hospitalization. Notify PCP of admission and forward orders to primary provider for signature. Weight on admission and: Weekly Call PCP immediately if weight increases by: 5 kg Other Notification Orders: Call PCP immediately if patient develops dyspnea, chest pain/tightness or edema. House Bowel Program: Yes Additional Bowel Program Orders: If no BM after 2 days, nurse may give M.O.M. 30ml PO PRN and/or ducolax Supp 1 NV and/or [place] 250mg P.O., and/or senna 1-2 tabs PO. On day 3 nurse may give repeat above order until residents constipation is resolved. Annual Influenza Vaccine (between Mar 30 and October 27): Yes Two-step PPD per [facility] [phone] or approved exception documents: Yes Treatments & Other Orders: She is bedbound, turn and reposition her every shift and as needed. Oxygen Orders: 2L of oxygen per n.c. 19/02 Medication Orders: PLEASE REFER TO THE DISCHARGE MEDICATION LIST. Insulin Orders?: No - Medications New Prescriptions: Ferrous Gluconate [Fergon] 324 mg PO DAILYWM #30 tablet Potassium Chloride [K-Dur] 20 meq PO DAILY #30 tab Gabapentin [Neurontin] 400 mg PO QPM #30 capsule Gabapentin [Neurontin] 300 mg PO 0900,1700 #60 capsule Nystatin [Nystop] 1 applic TOP BID #1 bottle Aspirin Chewable [St Yo Aspirin] 81 mg PO DAILY #30 tablet Acetaminophen [Tylenol] 650 mg PO QID #120 tablet - Diet Type: No added salt Texture: Regular Liquids: Thin May have monthly special meal: Yes - Therapies | Activity Rehabilitation Potential: Maintain present ADL Functional Activity: Activity as Tolerated Weight Bearing: No Weight"
[2020-08-02] MEDS: MULTIVITAMIN TABLET PO SCH (08:38)
[2020-08-02] MEDS: GABAPENTIN 300 MG CAPSULE PO SCH (08:38)
[2020-08-02] MEDS: ASPIRIN CHEW 81 MG TABLET PO SCH (08:38)
[2020-08-02] MEDS: FERROUS GLUCONATE 324 MG TABLET PO SCH (08:38)
[2020-08-02] MEDS: ACETAMINOPHEN 325 MG TABLET PO SCH ×2 (08:39→12:13)
[2020-08-02] MEDS: ENOXAPARIN 40 MG/0.4 ML SYRINGE SUBQ SCH (08:39)
[2020-08-02] MEDS: LACTOBACILLUS RHAMNOSUS GG CAPSULE PO SCH (08:39)
[2020-08-02] MEDS: METOPROLOL SUCCINATE 25 MG TABLET PO SCH (08:39)
[2020-08-02] MEDS: allopurinoL 100 MG TABLET PO SCH (08:39)
[2020-08-02] MEDS: NYSTATIN POWDER 15 GM TOP SCH (08:40)
[2020-08-02] MEDS: DOCUSATE SODIUM 250 MG CAPSULE PO SCH (08:41)
[2020-08-02] MEDS: polyethylene glycoL 3350 17 GM PACKET PO SCH (08:41)
[2020-08-02] MEDS: prednisoLONE 1% OPHTH DROPS 75 DROPS/5 ML BOTTLE EACHEYE SCH (08:41)
--- NOTE | 2020-08-02 08:44 | DISCHARGE SUMMARY ---
Discharge Summary Admit Date: 07/22/20 Discharge Date: 08/02/20 Discharging Provider: Dr Shanita Johnston Primary Care Provider: Dr Jose Solano Code Status: Attempt Resuscitation Condition at Discharge: Stable Discharge Disposition: 03 DC/Xfer - HPI History of Present Illness: From the admission H&P of Dr Mary Limau: Patient is an 80-year-old morbidly obese, white female with medical history significant for COPD, CHF, pulmonary hypertension, atrial fibrillation, venous stasis leg ulcers who presented from [facility] with reported hypoxia . She is normally on 2 L of oxygen via nasal cannula at baseline however it was noted that she was requiring 5 L with an oxygen saturation in the 80s. She was diagnosed with Covid-19 several days ago. For concern that her clinical status was worsening she was brought to the ED for further treatment. In the ED work-up showed BNP of 850, troponin of 69.9, INR 1.4. She had systolic blood pressures in the 70s to 90s CT of the chest showed groundglass opacities, trace pleural effusion. In the setting of cardiomegaly, findings were suggestive of CHF and pulmonary edema however viral pneumonia could not be excluded when groundglass opacity in the upper lobes were considered. At bedside the patient denies chest pain, dyspnea, abdominal pain, nausea, vomiting, fever or chills. She complains of general pain because she was just recently transferred from one bed to the other. Normally she is transferred from bed to her wheelchair using a Roxy lift. She has 3+ lower extremity edema and chronic venous stasis ulcers on her shins bilaterally. Her heart rate is irregularly irregular, her lungs are clear to auscultation bilaterally. She does not have labored breathing. She had a right femoral venous central line placed, received 1 dose of remdesivir 200 mg and dexamethasone 6mg IV in the ED and is being admitted to the ICU for further treatment. - HOSPITAL COURSE Hospital Course: (1) Anasarca She was admitted to the intensive care unit for acute on chronic hypoxic respiratory failure and hypotension. The concern initially was for a new and worsening COVID-19 infection as well as acute on chronic congestive heart failure. The findings were more consistent with CHF and pulmonary edema. Shortly after arrival to the intensive care unit, she was back to her baseline 2 L of oxygen. She was treated with 40 mg of Lasix IV b.i.d. with improvement in her dyspnea. Her blood pressures would become "soft" with systolics in the 90s to low 100s and at times dropping to the 80s. She did not show any evidence of hypoperfusion and her renal function remained stable as well as her mental status. She still had significant lower extremity edema (anasarca) likely related to her cor pulmonale and venous stasis. She was transferred out of the ICU an diuresed further with iv Lasix for 2 weeks, and had an 8kg weight loss. She was changed back to her old p.o.Torsemide dose at discharge to her group home. (2) Acute on chronic diastolic heart failure As per history and confirmed on Echo this admission. (3) Cor pulmonale Per Echo done this admission. This will make her very fluid sensitive; over- diuresis will drop her blood pressure, under-diuresis will cause anasarca. (4) COVID-19 She got 1 dose of Remdesivir and Decadron. She was not continued on Remdesivir and Decadron since it was felt that her initial hypoxia was likely related to heart failure rather than worsening COVID-19 infection. Her imaging was also more consistent with pulmonary edema. When she returned back to her group home, a Covid unit was being established there. (5) Chronic respiratory failure with hypoxia She was on 2 L O2 per nasal cannula and was continued on this; no lower setting was achieved even with diuresis. (6) Venous stasis ulcers of both lower extremities She got daily topical dressing changes. No debridement was needed as per the G eneral Surgery consult done by Dr Workman, during this admission. Recommend having her followed in [facility]ound clinic after the discharge (7) Chronic atrial fibrillation Heart rate was well controlled on her Metoprolol dose. She is now on daily aspirin for stroke prophylaxis, since Coumadin was stopped in mid-2019 because of a GI bleed. (8) Fibromyalgia Pain management was adjusted during this admission with advice from Pharmacy; Gabapentin increased especially at at bedtime and Tylenol use is scheduled. Narcotics have been stopped as they led to hypersomnolence. (9) Anemia, iron deficiency Hgb was 10.2 - 9.3 and serum stores were checked; she had adequate B12 and Folate levels, but low iron stores. Iron replacement was started and she was discharged on this. (10) Morbid obesity As per history. She is also bedbound or transfers to a chair with a lift. (11) V-tach There were 2 episodes which broke spontaneously. Troponins were rechecked and unremarkable. It was felt to be due to rapid fluid and electrolyte shifts during diuresis. (12) Elevated troponin These were minimally elevated and "flat", and felt to be due to her CHF (13) Hypotension Later in admission, she again had low blood pressure in the 80s and 90s and was also very somnolent for [address] was done to rule out stroke and showed no acute findings. It was felt to be due to a codeine dose increase. Narcan was given for reversal resulting in improvement in alertness and blood pressure, and her management of fibromyalgia and osteoarthritis was changed. (14) Hypersomnolence disorder, acute Resolved with Narcan reversing her codeine and discontinuation of meds that contain codeine. - ALLERGIES Allergies/Adverse Reactions: Allergies Allergy/AdvReac Type Severity Reaction Status Date / Time Latex, Natural Rubber Allergy Unknown Verified 07/22/20 17:05 mupirocin Allergy Rash Verified 07/22/20 17:05 silver Allergy Rash Verified 07/22/20 17:05 methotrexate AdvReac Headache Verified 07/22/20 17:05 - MEDICATIONS Home Medications: Ambulatory Orders Medication Instructions Recorded Confirmed Calcium Carbonate [Calcium] 1,000 mg PO Q2H PRN 06/08/16 07/23/20 Multivitamin [Multiple Vitamins] 1 each PO DAILY 06/09/16 07/23/20 Senna [Senokot] 8.6 mg PO DAILY PRN 06/09/16 07/23/20 polyethylene glycoL 3350 [Miralax] 17 gm PO DAILY 06/09/16 07/23/20 Metoprolol Succinate [Toprol Xl] 25 mg PO BID 07/22/20 07/23/20 Torsemide 80 mg PO DAILY 07/22/20 07/23/20 allopurinoL [Zyloprim] 100 mg PO DAILY 07/22/20 07/23/20 Ascorbic Acid 500 mg PO DAILY 07/23/20 07/23/20 Bisacodyl Supp [Dulcolax Supp] 10 mg WA Q24H PRN 07/23/20 07/23/20 Diclofenac Sodium [Voltaren 2 gm TP Q6H PRN 07/23/20 07/23/20 Arthritis Pain] Ipratropium/Albuterol [Combivent 1 puffs IH Q6H PRN 07/23/20 07/23/20 Respimat] Lactobacillus Rhamnosus GG 1 cap PO DAILY 07/23/20 07/23/20 [Culturelle] Loperamide [Imodium] 2 mg PO Q6H PRN 07/23/20 07/23/20 Loteprednol Etabonate 1 drops EACHEYE BID 07/23/20 07/23/20 Magnesium Hydroxide [Milk of 30 ml PO Q24H PRN 07/23/20 07/23/20 Magnesia] Melatonin 3 mg PO HS 07/23/20 07/23/20 Mineral Oil [Mineral Oil Enema] 1 unit RC Q24H PRN 07/23/20 07/23/20 Nitroglycerin [Nitrostat] 0.4 mg SL Q5M PRN 07/23/20 07/23/20 Ondansetron HCl [Zofran] 4 mg PO Q8H PRN 07/23/20 07/23/20 Prednisolone Acetate/Pf 1 drops EACHEYE BID 07/23/20 07/23/20 [Prednisolone Acet 1% Eye Drop] Propylene Glycol/Peg 400/Pf 1 each EACHEYE Q4H PRN 07/23/20 07/23/20 [Systane 0.3-0.4% Eye Drop] Simethicone [Mylicon] 160 mg PO Q6H PRN 07/23/20 07/23/20 Sodium Chloride [Saline Nasal 1 sprays BIBI Q4HR PRN 07/23/20 07/23/20 [place]] Trolamine Salicylate [Analgesic] 1 applic TP Q6H PRN 07/23/20 07/23/20 Vitamin B Complex 1 each PO DAILY 07/23/20 07/23/20 hydrOXYzine HCL [Hydroxyzine HCl] 50 mg PO Q6H PRN 07/23/20 07/23/20 Acetaminophen [Tylenol] 650 mg PO QID #120 tablet 08/02/20 Aspirin Chewable [St Yo 81 mg PO DAILY #30 tablet 08/02/20 Aspirin] Ferrous Gluconate [Fergon] 324 mg PO DAILYWM #30 tablet 08/02/20 Gabapentin [Neurontin] 300 mg PO 0900,1700 #60 capsule 08/02/20 Gabapentin [Neurontin] 400 mg PO QPM #30 capsule 08/02/20 Nystatin [Nystop] 1 applic TOP BID #1 bottle 08/02/20 Potassium Chloride [K-Dur] 20 meq PO DAILY #30 tab 08/02/20 - PHYSICAL EXAM AT DISCHARGE General Appearance: positive: No acute distress, Alert, Other (Pale, sleepy) Eyes Bilateral: positive: Normal inspection, EOMI ENT: positive: No signs of dehydration, Other (Wearing O2 per n.c.) Neck: positive: Other (Large "second chin", cannot eval for JVD) Respiratory: positive: No respiratory distress, Breath sounds nml Cardiovascular: positive: Irregularly irregular, Other (Distant heart sounds) Abdomen: positive: Non-tender, Other (Obese with pannus) Skin: positive: Warm, Dry Extremities: positive: Other (2+ pitting edema to thighs, both shins bandaged) Neurologic/Psychiatric: positive: Oriented x3, Other (Bedbound, moves all extremities) - LABS Result Diagrams: 07/30/20 08:22 08/02/20 04:30 - FOLLOW UP Follow Up: As per previous routine. - TIME SPENT Time Spent in Discharge (Minutes): 60
[2020-08-02] MEDS ORDERED: FUROSEMIDE 40 MG TABLET PO SCH (09:00)
[2020-08-02 10:17] VITALS: BP 132/83
== END 2020-08-02 14:50 | DRG 291 ==
LOC: EDUNIT# → ED 15:54 → ICU 17:37 → MS2 07-27 20:58
PROVIDERS: ADMIT Internal Medicine; ATTEND Internal Medicine
DX: I11.0 Hypertensive heart disease with heart failure (principal); U07.1 COVID-19; J96.21 Acute and chronic respiratory failure with hypoxia; I50.9 Heart failure, unspecified; L97.829 Non-pressure chronic ulcer of other part of left lower leg with unspecified severity; L97.819 Non-pressure chronic ulcer of other part of right lower leg with unspecified severity; I48.21 Permanent atrial fibrillation; Z68.43 Body mass index [BMI] 50.0-59.9, adult; E87.1 Hypo-osmolality and hyponatremia; I47.2 Ventricular tachycardia; I50.33 Acute on chronic diastolic (congestive) heart failure; I87.8 Other specified disorders of veins; N17.9 Acute kidney failure, unspecified; I87.2 Venous insufficiency (chronic) (peripheral); I27.29 Other secondary pulmonary hypertension; J44.9 Chronic obstructive pulmonary disease, unspecified; R77.8 Other specified abnormalities of plasma proteins; D50.9 Iron deficiency anemia, unspecified; I95.9 Hypotension, unspecified; I48.91 Unspecified atrial fibrillation; R40.0 Somnolence; T40.2X5A Adverse effect of other opioids, initial encounter; Y92.230 Patient room in hospital as the place of occurrence of the external cause; M79.7 Fibromyalgia; E66.01 Morbid (severe) obesity due to excess calories; K21.9 Gastro-esophageal reflux disease without esophagitis; R32 Unspecified urinary incontinence; R35.1 Nocturia; R35.0 Frequency of micturition; Z99.81 Dependence on supplemental oxygen; H54.7 Unspecified visual loss; M81.0 Age-related osteoporosis without current pathological fracture; M19.91 Primary osteoarthritis, unspecified site; Z79.01 Long term (current) use of anticoagulants; Z74.01 Bed confinement status; Z79.51 Long term (current) use of inhaled steroids; Z87.01 Personal history of pneumonia (recurrent); Z79.52 Long term (current) use of systemic steroids; Z79.899 Other long term (current) drug therapy; Z98.84 Bariatric surgery status; Z87.11 Personal history of peptic ulcer disease
CPT/HCPCS: 36415; 70450; 71045; 71275; 80048; 80053; 82040; 82310; 82607; 82746; 82803; 83540; 83605; 83690; 83735; 83880; 84100; 84132; 84466; 84484; 85025; 85027; 85379; 85610; 85651; 85730; 86140; 87150; 93005; 93306; 96365; 96375; 99285; A6250; A9270; C9399; J1650; P9047; Q0162; Q9967

== ENCOUNTER 2020-08-02 14:55 | Outpatient (CLI) | payer MEDICARE, OTHER, MEDICAID ==
--- OUTSIDE RECORDS SUMMARY | 2020-08-11 00:54 | EXTERNAL MEDICAL SUMMARY RPT | Continuity of Care Document ---
:1940 Demographics Phone Unavailable Preferred Language Unknown Marital Status Unknown Latter-Day Affiliation Unknown Race Unknown Ethnic Group Unknown Author Organization [place] Address [address] [phone] Phone Care Team Providers Name Role Phone Solano Unavailable Unavailable Lopez Unavailable Unavailable Problems date description facility 2015-02-24 23:52 HYPERTENSION NOS [facility] 2015-02-24 23:52 ATRIAL FIBRILLATION [facility] 2015-02-24 23:52 CELLULITIS OF LEG [facility] 2015-02-24 23:52 PAIN IN LIMB [facility] 2015-02-24 23:52 ANTICOAGULANTS,LT,CURRENT USE [facility] 2015-03-08 23:27 PAIN IN LIMB [facility] 2015-09-05 08:11 PURE HYPERCHOLESTEROLEMIA [facility] 2015-09-05 08:11 ESSENTIAL (PRIMARY) HYPERTENSION [facility] 2015-09-05 08:11 UNSPECIFIED ATRIAL FIBRILLATION [facility] 2015-09-05 08:11 HEART FAILURE, UNSPECIFIED [facility] 2015-09-05 08:11 SPRAIN OF LIGAMENTS OF THORACIC [facility] SPINE, INITIAL ENCOUNTER 2015-09-05 08:11 ACTIVITY, OTHER SPECIFIED [facility] 2016-06-08 17:54 MORBID (SEVERE) OBESITY DUE TO [facility] EXCESS CALORIES 2016-06-08 17:54 ESSENTIAL (PRIMARY) HYPERTENSION [facility] 2016-06-08 17:54 UNSPECIFIED ATRIAL FIBRILLATION [facility] 2016-06-08 17:54 NON-PRESSURE CHRONIC ULCER OF LEFT [facility] CALF WITH UNSP SEVERITY 2016-06-08 17:54 ACUTE CYSTITIS WITHOUT HEMATURIA [facility] 2016-06-08 17:54 BODY MASS INDEX (BMI) 50-59.9 , [facility] ADULT 2016-06-08 17:54 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 (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) USE OF [facility] ANTICOAGULANTS 2016-06-08 17:54 PERSONAL HISTORY OF PNEUMONIA [facility] (RECURRENT) 2016-06-08 17:54 PERSONAL HISTORY OF NICOTINE formerly [facility] DEPENDENCE 2016-06-08 17:54 BARIATRIC SURGERY STATUS [facility] 2016-10-24 14:02 OTHER INSOMNIA [facility] 2016-10-24 14:02 CIRCADIAN RHYTHM SLEEP DISORDER, [facility]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 SLEEP WAKE TYPE 2016-10-24 14:02 OBSTRUCTIVE SLEEP APNEA (ADULT) [facility] (PEDIATRIC) 2016-12-29 19:24 TACHYCARDIA, UNSPECIFIED [facility] 2016-12-29 19:24 SHORTNESS OF BREATH [facility] 2016-12-29 19:24 HEMORRHAGE, NOT ELSEWHERE CLASSIFIED W [facility] 2017-01-03 12:49 PRIMARY OSTEOARTHRITIS, LEFT [facility] SHOULDER 2017-08-06 16:32 OTH VIRAL AGENTS THE CAUSE OF [facility] DISEASES CLASSD ELSWHR 2017-08-06 16:32 HYPERTENSIVE HEART DISEASE WITH [facility] HEART FAILURE 2017-08-06 16:32 UNSPECIFIED ATRIAL FIBRILLATION [facility] 2017-08-06 16:32 HEART FAILURE, UNSPECIFIED [facility] 2017-08-06 16:32 ACUTE UPPER RESPIRATORY INFECTION, [facility] UNSPECIFIED 2017-08-06 16:32 CHRONIC OBSTRUCTIVE PULMONARY [facility] DISEASE, UNSPECIFIED 2017-08-06 16:32 CELLULITIS OF LEFT LOWER LIMB [facility] 2017-08-06 16:32 NON-PRESSURE CHRONIC ULCER OF LEFT [facility] ANKLE WITH UNSP SEVERITY 2017-08-06 16:32 COUGH [facility] 2017-08-06 16:32 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 (CURRENT) USE OF [facility] ANTICOAGULANTS 2020-02-27 08:00 ANEMIA, UNSPECIFIED [facility] 2020-02-27 08:00 CHRONIC OBSTRUCTIVE PULMONARY [facility] DISEASE, UNSPECIFIED 2020-03-06 08:00 ANEMIA, UNSPECIFIED [facility] 2020-03-06 08:00 TYPE 2 DIABETES MELLITUS WITHOUT [facility] COMPLICATIONS 2020-03-22 08:00 ANEMIA, UNSPECIFIED [facility] 2020-03-22 08:00 CHRONIC ATRIAL FIBRILLATION, [facility] UNSPECIFIED 2020-03-22 08:00 CHRONIC DIASTOLIC (CONGESTIVE) HEART W [facility] FAILURE 2020-03-22 08:00 CHRONIC OBSTRUCTIVE PULMONARY [facility] DISEASE, UNSPECIFIED 2020-04-02 14:35 OTH DISRD OF BONE DENSITY AND [facility] STRUCTURE, LEFT ANKLE AND FOOT 2020-04-09 18:58 URINARY TRACT INFECTION, SITE NOT [facility] SPECIFIED 2020-04-18 08:00 ANEMIA, UNSPECIFIED [facility] 2020-04-18 08:00 HEART FAILURE, UNSPECIFIED [facility] 2020-04-26 17:45 ANEMIA, UNSPECIFIED [facility] 2020-04-26 17:45 HEART FAILURE, UNSPECIFIED [facility] 2020-05-03 08:00 ANEMIA, UNSPECIFIED [facility] 2020-05-03 08:00 UNSPECIFIED ATRIAL FIBRILLATION [facility] 2020-05-06 15:21 OTH DISRD OF BONE DENSITY AND [facility] STRUCTURE, LEFT ANKLE AND FOOT 2020-05-06 15:21 CONTUSION OF LEFT FOOT, INITIAL [facility] ENCOUNTER 2020-05-06 15:21 UNSP FRACTURE OF LEFT CALCANEUS, [facility] INIT FOR CLOS FX 2020-05-25 10:40 INSOMNIA, UNSPECIFIED [facility] 2020-05-25 10:40 CIRCADIAN RHYTHM SLEEP DISORDER, [facility] IRREGULAR SLEEP WAKE TYPE 2020-05-25 10:40 OBSTRUCTIVE SLEEP APNEA (ADULT) [facility] (PEDIATRIC) 2020-06-03 00:00 UNSPECIFIED ATRIAL FIBRILLATION [facility] 2020-06-03 17:10 UNSPECIFIED ATRIAL FIBRILLATION [facility] 2020-06-29 00:00 EDEMA, UNSPECIFIED [facility] 2020-06-29 11:15 EDEMA, UNSPECIFIED [facility] 2020-07-22 17:37 IRON DEFICIENCY ANEMIA, UNSPECIFIED [facility] 2020-07-22 17:37 MORBID (SEVERE) OBESITY DUE TO [facility] EXCESS CALORIES 2020-07-22 17:37 OPIOID USE, UNSPECIFIED WITH formerly [facility] OPIOID-INDUCED SLEEP 2020-07-22 17:37 UNSPECIFIED VISUAL LOSS [facility] 2020-07-22 17:37 HYPERTENSIVE HEART DISEASE WITH [facility] HEART FAILURE 2020-07-22 17:37 OTHER SECONDARY PULMONARY [facility] HYPERTENSION 2020-07-22 17:37 PERMANENT ATRIAL FIBRILLATION [facility] 2020-07-22 17:37 UNSPECIFIED ATRIAL FIBRILLATION [facility] 2020-07-22 17:37 ACUTE ON CHRONIC DIASTOLIC [facility] (CONGESTIVE) HEART FAIL 2020-07-22 17:37 HEART FAILURE, UNSPECIFIED [facility] 2020-07-22 17:37 OTHER SPECIFIED DISORDERS OF VEINS [facility] 2020-07-22 17:37 HYPOTENSION, UNSPECIFIED [facility] 2020-07-22 17:37 CHRONIC OBSTRUCTIVE PULMONARY [facility] DISEASE, UNSPECIFIED 2020-07-22 17:37 ACUTE AND CHRONIC RESPIRATORY [facility] FAILURE WITH HYPOXIA 2020-07-22 17:37 GASTRO-ESOPHAGEAL REFLUX DISEASE [facility] WITHOUT ESOPHAGIT 2020-07-22 17:37 NON-PRESSURE CHRONIC ULCER OTH PRT R [facility] LOW LEG W UNS 2020-07-22 17:37 NON-PRESSURE CHRONIC ULCER OTH PRT L [facility] LOW LEG W UNS 2020-07-22 17:37 PRIMARY OSTEOARTHRITIS, UNSPECIFIED [facility] SITE 2020-07-22 17:37 FIBROMYALGIA [facility] 2020-07-22 17:37 AGE-RELATED OSTEOPOROSIS W/O CURRENT [facility] PATHOLOGICAL 2020-07-22 17:37 UNSPECIFIED URINARY INCONTINENCE [facility] 2020-07-22 17:37 FREQUENCY OF MICTURITION [facility] 2020-07-22 17:37 NOCTURIA [facility] 2020-07-22 17:37 COVID-19 [facility] 2020-07-22 17:37 DO NOT RESUSCITATE [facility] 2020-07-22 17:37 BODY MASS INDEX [BMI] 50.0-59.9, [facility] ADULT 2020-07-22 17:37 BED CONFINEMENT STATUS [facility] 2020-07-22 17:37 HALF-WAY (CURRENT) USE OF [facility] ANTICOAGULANTS 2020-07-22 17:37 HALF-WAY (CURRENT) USE OF INHALED [facility] STEROIDS 2020-07-22 17:37 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 (CURRENT) USE OF SYSTEMIC [facility] STEROIDS 2020-07-22 17:37 OTHER 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 (CURRENT) DRUG [facility] THERAPY 2020-07-22 17:37 PERSONAL HISTORY OF PEPTIC ULCER [facility] DISEASE 2020-07-22 17:37 BARIATRIC SURGERY STATUS [facility] Allergies date description facility No known allergies [facility] ALENDRONATE SODIUM [facility] AMITRIPTYLINE HCL [facility] BEE VENOM [facility] CEPHALEXIN [facility] CHLORHEXIDINE [facility] CIPROFLOXACIN [facility] CODEINE [facility] GABAPENTIN [facility] HYDROCHLOROTHIAZIDE [facility]OCODONE [facility] LEVOFLOXACIN [facility] MORPHINE [facility] POLLEN EXTRACT [facility] PROCAINE [facility] PROMETHAZINE [facility] TRAMADOL [facility] VARENICLINE [facility] NITROFURAN DERIVATIVES [facility] edical [place] NO KNOWN ENVIRONMENTAL ALLERGIES [facility] PENICILLINS [facility] SULFA ANTIBIOTICS [facility] LISINOPRIL [facility] PENICILLINS [facility] NO KNOWN ALLERGIES [facility] VAUGHAN [facility] EGGPLANT [facility] KIWI [facility] LACTOSE [facility] SHELLFISH [facility] OPIUM TINCTURE [facility] HYDROCODONE [facility] PROPOXYPHENE [facility] NAPROXEN [facility] AMOXICILLIN [facility] Tetanus Vaccines and Toxoid [facility] Latex, Natural Rubber [facility] dical Center methotrexate [facility] mupirocin [facility] silver [facility] NO KNOWN ALLERGIES [facility] NO KNOWN ENVIRONMENTAL ALLERGIES [facility] [place] TETANUS TOXOIDS [facility] NSAIDS (NON-STEROIDAL ANTI-INFLAMMATORY DRUG) [facility] Medical [place] PENICILLINS [facility] VGOLCUU-RXP-POP REDUCTASE INHIBITORS [facility] OPIUM TINCTURE [facility] CODEINE [facility] HYDROCODONE [facility] PROPOXYPHENE [facility] CYCLOSPORINE [facility] METHADONE [facility] MEDROXYPROGESTERONE [facility] LISINOPRIL [facility] NITROGLYCERIN [facility] LATEX [facility] NO KNOWN ENVIRONMENTAL ALLERGIES [facility] SULFA ANTIBIOTICS [facility] OTHER [facility] [place] [facility] DIVALPROEX [facility] NO KNOWN ALLERGIES [facility] SHELLFISH DERIVED [facility] AMIODARONE ANALOGUES [facility] NO ALLERGY INFORMATION AVAILABLE [facility] [place] PENICILLINS [facility] TETRACYCLINES [facility] SULFA (SULFONAMIDE ANTIBIOTICS) [facility] NO KNOWN ALLERGIES [facility] OPIUM TINCTURE [facility] CODEINE [facility] HYDROCODONE [facility] PROPOX[facility]PHENE [facility] NAPROXEN [facility] AZITHROMYCIN [facility] AMIODARONE [facility] HYDRALAZINE [facility] KATARINA [facility] LISINOPRIL [facility] LATEX [facility] SULFAMETHOXAZOLE-TRIMETHOPRIM [facility] ADHESIVE TAPE-SILICONES [facility] penicillin [facility] Latex, Natural Rubber formerly [facility] Me dical Center methotrexate [facility] mupirocin [facility] silver [facility] Results Social History date description facility [id number]
== END 2020-08-02 14:56 ==
LOC: EMS 14:55
PROVIDERS: ATTEND Surgery
DX: U07.1 COVID-19 (principal); R60.1 Generalized edema; Z74.01 Bed confinement status
CPT/HCPCS: A0425; A0428

== ENCOUNTER 2020-08-16 19:15 | Outpatient (CLI) | payer MEDICARE, OTHER, MEDICAID ==
[2020-08-16 20:34] LABS: CALCIUM 7.9 mg/dL (8.5-10.3)
== END 2020-08-16 19:16 | disposition home or self-care (01) ==
LOC: LAB.R 19:15
DX: E11.9 Type 2 diabetes mellitus without complications (principal)
CPT/HCPCS: 36415; 80048

== ENCOUNTER 2020-08-30 10:00 | Outpatient (CLI) | payer MEDICARE, OTHER, MEDICAID ==
--- NOTE | 2020-08-30 16:20 | CONSULTATION NOTE ---
Palliative Care Consultation - Referral Referring Provider: Dr. Ryan Solano Time of Visit: [id number] Referral setting: Detention Facility Referral Reason: CHF/COPD/Debility/Advanced Care Planning - Information Sources Records reviewed: Previous records reviewed History/Review of Systems obtained from: Patient, Family (daughter, Angeli) Exam limitations: No limitations - History of Present Illness Brief History of Present Illness: This is an 80-year-old female who was seen and evaluated today at [facility] for initial palliative care consultation due to underlying comorbidities including CHF, COPD and advance care planning with her daughter, Helen present at the window due to coronavirus restrictions. The patient has had chronic health concerns for many years per both the patient and daughter's report. The patient transition to [facility] in January 2020. Previously the patient was residing in [facility]. The daughter reports that the patient has been in and out of care facilities over the last several years. The patient herself will typically have complaints regarding her present facility and the preceding facility she will have fund comments upon. The patient herself is suspicious regarding palliative care services but the daughter is grateful for an extra added layer of support. The patient has a history of COPD and is on supplemental oxygen via nasal cannula. She was recently hospitalized at [facility] 07/22/08/02/2020 due to Pat hyper ataxia due to Covid19 infection. She was also hospitalized in January at [facility] Due to acute blood loss secondary to anemia while on Eliquis anticoagulation, CHF exacerbation, GLEN on CKD and C. difficile colonization. She was referred to hospice services but did not meet hospice site. And thus was not admitted. She is a chronic left lower extremity ulcer. This has been debrided in the past. Facility staff report that this is the best that it has looked in some time as the patient has not been out of bed in her wheelchair since returning from her last hospitalization at [facility]. The patient is presently being managed with diuretic therapy with furosemide 160 mg on Mondays, Wednesdays and Fridays alternating with furosemide 80 mg on Tuesdays, , Saturdays and Sundays with potassium supplementation. This seems to have struck her balance with managing her lower extremity edema. She presently weighs 281.6 pounds. The patient very much wishes to get out of bed into her electric wheelchair. However, staff report any time that she is up sitting for long periods of time she develops acute lower extremity edema that resulted in blistering. Therefore, the patient reports that she will get out of bed with a Roxy lift and only be able to sit up for 10 to 15 minutes before she is assisted back to bed. The patient's is having regular bowel movements typically every 2 days. However, she reports that she does not always feel like she is fully emptying and is requesting additional adjustment of her bowel regimen. She is also reporting discomfort to her right shoulder. This is chronic. X- rays per patient and daughter's report in the past have demonstrated osteoarthritis. She has as needed cream written on her MAR that is effective for relief however, she does not always think to ask for this from nursing staff. Patient is seen sitting up in bed, well-groomed and morbidly obese. Supplemental oxygen in place no evidence of acute distress. Medical/Surgical History - Past Medical History Cardiovascular: reports: Congestive heart failure (EF 50% 08/11/2019), Hypertension, High cholesterol, Atrial fibrillation (previously on eliquis), Other (Peripheral arterial disease; Pericarditis dx [facility] 2019) Respiratory: reports: COPD (on supplemental oxygen), Pneumonia, Sleep apnea Neuro: reports: CVA Endocrine/Autoimmune: reports: Other (history of type II diabetes) GI: reports: GERD, Ulcers, C.difficile (colonization 01/2020), Hemorrhoids : reports: Incontinence, Nocturia, Frequency, Other (CKD stage III) HEENT: reports: Chronic vision loss Psych: reports: None Musculoskeletal: reports: Osteoarthritis, Fibromyalgia, Osteoporosis Derm: reports: Other (chronic neurogenic ulcer LLE) MRSA Hx?: Yes - Past Surgical History General: reports: Cholecystectomy, Gastric surgery /BI MANAGER: reports: Hysterectomy HEENT: reports: Cataracts Derm: reports: Other - Substance History Use: Uses substance without health or social issues: NONE (No history of tobacco use) Social History - Living Situation Living arrangement: care home Support System: Patient grew up in [place] [facility]. She and her of 62 years relocated to [facility]. They had 3 biological children and 1 adopted child. They eventually relocated to [facility] as they [place] "[place] and [place]." The patient's spouse in 2016 from multiple myeloma and bladder cancer. The patient resided with her daughter and son-in-law for approximately -2 months they could not keep up with her needs and she thus transition to [facility] for approximately 6 months before her hospitalization at [facility] in January 2020. After she was discharged from [facility] in January 2020 she transitioned to [facility]. Her daughter, Raquel is her contact at [phone]. The patient worked in the [employer] and provided much community service. Family History - Family History Family History: Mother: , Father: Medications/Allergies - Medications Home Medications: Ambulatory Orders Medication Instructions Recorded Confirmed Acetaminophen [Aphen] 650 mg PO Q6H PRN 08/30/20 08/30/20 Ascorbic Acid 500 mg PO DAILY 08/30/20 08/30/20 Aspercreme 1 applic TP BID 08/30/20 Aspercreme 1 applic TP BID PRN MDD right 08/30/20 shoulder Aspirin [Aspirin EC] 81 mg PO DAILY 08/30/20 08/30/20 B Complex 1 tab PO DAILY 08/30/20 Bisacodyl Supp [Dulcolax Supp] 1 spr AK DAILY PRN 08/30/20 08/30/20 Calcium Carbonate [Tums (Calcium 1,000 mg PO Q2H PRN MDD acid reflux 08/30/20 08/30/20 Carbonate 500mg)] Diclofenac Sodium [Voltaren 2 g TP Q6H PRN 08/30/20 08/30/20 Arthritis Pain] Ferrous Gluconate 324 mg PO DAILY 08/30/20 Gabapentin [Neurontin] 400 mg PO TID 08/30/20 08/30/20 Hydrocodone/Acetaminophen 0.5 tab PO Q8H PRN 08/30/20 08/30/20 [Hydrocodone-Acetamin 5-300 mg] Ipratropium Albuterol 1 puffs IN Q6H PRN 08/30/20 Lactobacillus Rhamnosus GG 1 cap PO DAILY 08/30/20 08/30/20 [Culturelle] Loperamide HCl [Imodium A-D] 1 cap PO Q6H PRN 08/30/20 08/30/20 Magnesium Hydroxide [Milk of 30 ml PO DAILY PRN MDD give 2 08/30/20 08/30/20 Magnesia] hours before gabapentin Melatonin 3 mg PO QPM 08/30/20 08/30/20 Metoprolol Succinate [Toprol Xl] 0.5 tab PO DAILY 08/30/20 08/30/20 Mineral Oil Enema 1 unit AK DAILY PRN 08/30/20 Multivitamin 1 tab PO DAILY 08/30/20 08/30/20 Nitroglycerin [Nitrostat] 0.4 mg PO .Q5MIN X 3 FOR CP PRN 08/30/20 08/30/20 Nystatin [Nystop] 1 applic TP BID 08/30/20 08/30/20 Ondansetron HCl [Zofran] 4 mg PO Q8H PRN 08/30/20 08/30/20 Potassium Chloride 20 meq PO .BID ON T, TH, S,S 08/30/20 08/30/20 Potassium Chloride 40 meq PO .BID M, W, F 08/30/20 08/30/20 Senna [Senokot] 1 tab PO DAILY 08/30/20 08/30/20 Senna [Senokot] 1 tab PO DAILY PRN 08/30/20 08/30/20 Sodium Chloride [Saline Nasal 1 spray IH Q4H PRN 08/30/20 08/30/20 [place]] Torsemide 80 mg PO .DAILY T, TH, S, S 08/30/20 08/30/20 Torsemide 160 mg PO .DAILY MON, WED, FRI 08/30/20 08/30/20 allopurinoL [Zyloprim] 100 mg PO DAILY 08/30/20 08/30/20 polyethylene glycoL 3350 [Miralax] 17 g PO DAILY 08/30/20 08/30/20 prednisoLONE acetate [Pred Forte] 1 drops EACHEYE DAILY 08/30/20 08/30/20 - Allergies Allergies/Adverse Reactions: Allergies Allergy/AdvReac Type Severity Reaction Status Date / Time Latex, Natural Rubber Allergy Unknown Verified 07/22/20 17:05 mupirocin Allergy Rash Verified 07/22/20 17:05 silver Allergy Rash Verified 07/22/20 17:05 methotrexate AdvReac Headache Verified 07/22/20 17:05 Review of Systems - Constitutional Constitutional: reports: Fatigue, Other (weight 281.6lb 08/19/2020) - Eyes Eyes: reports: Vision loss (unable to do her needle point), Corrective lenses - Ears, Nose & Throat Ears, Nose & Throat: reports: Hearing loss. denies: Hearing aids - Cardiovascular Cardiovascular: reports: Edema. denies: Palpitations - Respiratory Respiratory: reports: Other (supplemental oxygen in place). denies: Wheezing - Gastrointestinal Gastrointestinal: reports: Constipation (controlled), Good appetite. denies: Diarrhea, Vomiting - Genitourinary Genitourinary: reports: Incontinence. denies: Dysuria - Musculoskeletal Musculoskeletal: reports: Limited range of motion, Joint pain (right shoulder, see HPI), Assistive devices, Transfer issues - Integumentary Integumentary: reports: Other (chronic left lower extremity ulcer) - Neurological Neurological: reports: General weakness - Endocrine Endocrine: reports: Diabetes type 2 (history of, diet controlled) - Hematologic/Lymphatic Hematologic/Lymph: Anemia - All Other Systems All Other Systems: reports: Reviewed and negative Physical Exam - Vital Signs Temperature: 36.2 C Pulse Rate: 87 O2 Saturation: 94 (on 2L via NC) Blood Pressure: 106/63 - Physical Exam General Appearance: positive: No acute distress, Alert, Other (well groomed, morbidly obsese) Eyes Bilateral: positive: Normal inspection ENT: positive: No signs of dehydration Neck: positive: Trachea midline Cardiovascular: positive: Regular rate & rhythm, No murmur Respiratory: positive: No respiratory distress, Breath sounds nml, Diminished in bases. negative: Wheezes Abdomen: positive: Non-tender, Soft, Nml bowel sounds, Obese Skin: positive: Wound (dressing to LLE C/D/I due to chronic neurogenic ulcer to left dsouza--see nursing notes for further details), Other (venous stasis changes to BLE; b/l heal skins are intact) Extremities: positive: Pedal edema (+1 pitting edema RLE > LLE due to elevation of LLE on pillow), Other (right shoulder nontender to palpation and no evidence of effusion) Neurologic/Psychiatric: positive: Oriented x3, Mood/affect nml, Weakness Palliative Care - POLST Patient has POLST: Yes POLST Status: DNR, Selective Treatment Pain: Comment (right shoulder pain see HPI) Nausea: None Anorexia: None Dyspnea: Moderate (4-6) Anxiety: None Sleep: Variable sleep pattern Constipation: Managed Performance Status: Previously able to get out of bed to her motorized wheelchair. Now she is dependent with a Roxy lift. Total assistance. Incontinent of bowel and bladder. Requires set up for meals. Able to self feed. PPS 30% - Palliative Care Discussion: The patient's daughter recognizes that the patient is having a slow steady decline. The daughter is looking into the future about end-of-life and wishes to care for advanced care planning. The patient's daughter, Helen wishes for her siblings to be involved with the patient is at end-of-life and is optimistic that the restrictions due to coronavirus will not be in place when that time comes. The patient herself misses human connection and touch. She has been a very creative individual with her ability to when awards for her painting, sewing, and quilting. Isolation in her room has been very restricting for her she is someone that needs to be engaged with others. She wishes to work with physical therapy to regain some lower extremity strength so she can turn and reposition more independently in bed without assistance from facility staff. The patient and daughter are both reflective more in the almost year that they have spent due to the social restrictions from coronavirus and both myths their engagement and interactions. The daughter has been grateful the patient has been able to read the lead relocated to [facility] as this is closer for the daughter to visit and provide items of comfort for the patient. Made a suggestion to have pictures and familiar items set up in the room on the aguayo to engage the patient. Report of listening provided to both the daughter and the patient regarding facility operations and continue to provide encouragement to make upper management administration aware of concerns or changes be may be made. Impression and Recommendations - Palliative Care Impression: This is an morbidly obese 80-year-old female with COPD requiring supplemental oxygen, CHF with lower extremity edema, osteoarthritic pain to the right shoulder who is demonstrated general decline and debility due to her multiple comorbidities. She wishes to regain some of her independence and be able to get out of bed in her electric chair as well as change and reposition within her bed independently. The patient's daughter wishes for an added layer of support from palliative care services to ensure transition to hospice services and family support at end-of-life. Palliative care will continue to explore goals of care, build rapport, provide supportive listening and encouragement, care coordination and advance care planning. Recommendations/Counseling Done: 1. Right shoulder pain due to osteoarthritis. Patient has found Aspercreme beneficial but restrictive when requesting on an as-needed basis. DC Aspercreme present order. Initiate Aspercreme to right shoulder twice a day due to pain secondary to osteoarthritis. Initiate Aspercreme to right shoulder twice daily as needed for shoulder pain. Continue to monitor. 2. Bedbound status due to debility. Patient has been restrictive to her bed for reduction of her lower extremity edema due to her CHF and would recommend PT for transfers and strengthening so that the patient may participate in her repositioning in bed. 3. Constipation. Routine bowel movements with sensation of not fully defecating. Continue miralax as order. Initiate senna 8.6mg daily and hold for lose stools. Continue to monitor. 4. Morbid obesity. Monitor weight trends. 5. Congestive heart failure, EF 50%. Daughter is aware of delicate balance between diuretic therapy and underlying renal function. Patient has some LE edema on examination today but no evidence of excerbation as she is able to speak in clear sentences and no advantageous lung sounds. Reviewed with daughter and patient today chronic, trajectory of CHF. Continue diuretic therapy as ordered. Continue to be followed by on site facility provider for management. 6.Advanced care planning. Patient has POLST in place as DNAR with selective interventions. Introduction to daughter, Angeli and patient regarding goals of care and what is important to her in regards for her continuum. Patient's family is optomistic that they will be present to spend time with the patient at end of life and hopeful that COVID-19 restrictions decrease. Counseling provided on continuum of palliative care and transition to hospice when appropriate. Supportive listening provided. Face to Face: Patient requires a tilt in space wheelchair as she is no longer ambulatory and dependent for all transfers. She requires a roxy lift presently and is unable to sit up for long periods of time due to increase bilateral lower extremity edema resulting in blisters. She is unable to reposition in bed or in her electric wheelchair and requires repositioning by staff. She requires a tilt in space wheelchair to decrease her isolation, improve indepdence, reduce risk of skin breakdown, reduce lower extremity edema and to aid in improving the patient's ADLs. Time Spent: Total time spent 90 minutes with greater than 50% of this spent in counseling and coordination of care with patient and daughter (via window) and additional advanced care planning face to face outside of the facility; review of palliative care philosophy; review of pathophysiology of CHF; supportive listening; review of pain and symptom management and anticipatory guidance. Disclaimer: The chart note was formulated using voice recognition technology and unfortunately sound alike errors may occur.
== END 2020-08-30 10:01 | disposition home or self-care (01) ==
LOC: PC 10:00
PROVIDERS: ATTEND Nurse Practitioner Family
DX: Z51.5 Encounter for palliative care (principal); M19.011 Primary osteoarthritis, right shoulder; Z74.01 Bed confinement status; K59.00 Constipation, unspecified; E66.01 Morbid (severe) obesity due to excess calories; I13.0 Hypertensive heart and chronic kidney disease with heart failure and stage 1 through stage 4 chronic kidney disease, or unspecified chronic kidney disease; E11.22 Type 2 diabetes mellitus with diabetic chronic kidney disease; N18.30 Chronic kidney disease, stage 3 unspecified; I50.9 Heart failure, unspecified; R60.0 Localized edema; L97.929 Non-pressure chronic ulcer of unspecified part of left lower leg with unspecified severity; J44.9 Chronic obstructive pulmonary disease, unspecified; I87.8 Other specified disorders of veins; Z99.81 Dependence on supplemental oxygen; Z66 Do not resuscitate
CPT/HCPCS: 99306

== ENCOUNTER 2020-08-31 23:00 | Outpatient (CLI) | payer MEDICARE, OTHER, MEDICAID | END 2020-08-31 23:01 | disposition home or self-care (01) | LOC: SC 23:00 | PROVIDERS: ATTEND Internal Medicine Pulmonary Disease | DX: G47.33 Obstructive sleep apnea (adult) (pediatric) (principal); E66.9 Obesity, unspecified; Z68.43 Body mass index [BMI] 50.0-59.9, adult | CPT/HCPCS: G0399 ×2; 95806 ==